=== PATIENT | female | born 1995 | race Caucasian/White ===

== ENCOUNTER 2016-07-27 09:15 | Emergency (ER) | payer OTHER | END 2016-07-27 10:09 | disposition left against medical advice (07) | LOC: UCEAST 09:15 | DX: Z53.21 Procedure and treatment not carried out due to patient leaving prior to being seen by health care provider (principal); K08.89 Other specified disorders of teeth and supporting structures ==

== ENCOUNTER 2016-07-27 11:30 | Emergency (ER) | payer OTHER ==
[2016-07-27] MEDS ORDERED: Ketorolac INJ* 60 MG/2 ML VIAL IM ONE (12:14)
[2016-07-27] MEDS ORDERED: Ondansetron INJ* 2 MG/ML VIAL IV ONE (12:20)
[2016-07-27] MEDS ORDERED: Morphine INJ* 4 MG/ML 1 ML CARPUJECT IV ONE ×2 (12:20→13:39)
[2016-07-27 14:01] VITALS: BP 100/86
--- NOTE | 2016-07-28 21:22 | ED ---
Throat Pain/Nasal Congestion - HPI Summary HPI Summary: Pt here w/ dental pain. [place] tooth coming in on Lt upper jaw and decaying tooth on Lt lower jaw. She's tried high dose ibuprofen around the clock the 24 hours w/o relief. Has severe pain and pressure in her mouth where wisdom tooth is trying to come in and decaying tooth has been a slow progressive pain that is worsening. Denies fever, chills, N/V/D, neck pain. Has difficulty eating with pain. Just got insurance so called a dentist yesterday and they can't get her in until Sunday. - History of Current Complaint Chief Complaint: EDDentalPain Hx Obtained From: Patient - Allergies/Home Medications Allergies/Adverse Reactions: Allergies Allergy/AdvReac Type Severity Reaction Status Date / Time Hydrocodone [From Vicodin] Allergy Severe Vomiting Verified 07/27/16 11:36 Ketorolac Tromethamine Allergy has Verified 07/27/16 12:19 [From Toradol] seizures Shellfish Allergy Allergy Unknown Verified 07/27/16 11:36 Reaction Details PMH/Surg Hx/FS Hx/Imm Hx Previously Healthy: Yes Endocrine/Hematology History: Denies: Hx Diabetes, Hx Thyroid Disease, Hx Anemia, Hx Unexplained Bleeding Cardiovascular History: Denies: Hx Cardiac Arrest, Hx Embolism, Hx Hypertension, Hx Pacemaker/ICD Respiratory History: Denies: Hx Asthma, Hx Chronic Obstructive Pulmonary Disease (COPD), Hx Pneumonia GI History: Denies: Hx Ulcer Sensory History: Denies: Hx Contacts or Glasses, Hx Hearing Aid, Hx Hearing Problem Opthamlomology History: Denies: Hx Contacts or Glasses Neurological History: Reports: Hx Seizures - Pt has had history of sezures when Hypoglycemic Psychiatric History: Reports: Hx Anxiety, Hx Depression, Hx Panic Disorder, Hx Inpatient Treatment, Hx Schizophrenia, Other Psychiatric Issues/Disorders - PANIC DISORDER Denies: Hx Eating Disorder, Hx of Violent Episodes Against Others - Immunization History Date of Tetanus Vaccine: less jodee a year ago Infectious Disease History: No Infectious Disease History: Denies: Hx Clostridium Difficile, Hx Hepatitis, Hx Human Immunodeficiency Virus (HIV), Hx of Known/Suspected MRSA, Hx Shingles, Hx Tuberculosis, Hx Known/ Suspected VRE, Hx Known/Suspected VRSA, History Other Infectious Disease, Traveled Outside the [place] in Last 30 Days - Family History Known Family History: Positive: Other - see note Negative: Cardiac Disease Family History: Biological father - Schizophrenia - Social History Alcohol Use: None Hx Substance Use: Yes Substance Use Type: Reports: Sedatives Substance Use Comment - Amount & Last Used: cymbalta 30mg , adderal 20mg qd. Hx Tobacco Use: No Smoking Status (MU): Former Smoker Type: Cigarettes Length of Time of Smoking/Using Tobacco: 3 years Have You Smoked in the Last Year: No Review of Systems Negative: Fever, Chills Negative: Drainage, Erythema Positive: Dental Pain - see HPI. Negative: Sore Throat, Ear Ache, Nasal Discharge Negative: Chest Pain Negative: Shortness Of Breath Negative: Abdominal Pain, Vomiting, Diarrhea, Nausea Positive: no symptoms reported Negative: Rash, Bruising Neurological: Negative Positive: Anxious All Other Systems Reviewed And Are Negative: Yes Physical Exam Triage Information Reviewed: Yes Vital Signs On Initial Exam: Initial Vitals Temp Pulse Resp BP Pulse Ox 99.2 F 100 19 138/94 100 07/27/16 11:31 07/27/16 11:31 07/27/16 11:31 07/27/16 11:31 07/27/16 11:31 Vital Signs Reviewed: Yes Appearance: Positive: Well-Appearing, Well-Nourished, Pain Distress Skin: Positive: Warm, Dry - no overlying erythema along affected side of face - no edema Head/Face: Positive: Normal Head/Face Inspection Eyes: Positive: Normal, EOMI, Conjunctiva Clear. Negative: Discharge ENT: Positive: Hearing grossly normal, Pharynx normal, TMs normal. Negative: Nasal congestion, Nasal drainage Dental: Positive: Gross Decay/Caries @ - #18 mostly decayed; #16 partially protruding from gingiva -surrounding gingiva w/ mild erythema - no pustules, nodrainage, no edema Neck: Positive: Supple, Nontender Respiratory/Lung Sounds: Positive: Breath Sounds Present. Negative: Stridor Cardiovascular: Positive: Normal, RRR. Negative: Murmur, Rub Musculoskeletal: Positive: Normal, Strength/ROM Intact Neurological: Positive: Normal, Sensory/Motor Intact, Alert, Oriented to Person Place, Time, CN Intact II-III Psychiatric: Positive: Anxious - crying hysterically Diagnostics - Vital Signs Vital Signs Temp Pulse Resp BP Pulse Ox 07/27/16 14:00 89 16 100/86 07/27/16 13:55 89 16 105/54 98 07/27/16 13:54 98.6 F 89 16 105/54 07/27/16 13:46 16 07/27/16 13:45 88 16 96/66 98 07/27/16 13:30 78 16 101/73 07/27/16 12:37 16 07/27/16 11:31 99.2 F 100 19 138/94 100 - Laboratory Lab Statement: Any lab studies that have been ordered have been reviewed, and results considered in the medical decision making process. Re-Evaluation - Re-Evaluation First Eval Change: Unchanged - minimal relief w/ 4mg morphine IV - will provide 8mg morphine EENT Course/Dx - Course Course Of Treatment: Pt's pain appears to be triggering her anxiety - she failed multiple doses of ibuprofen - could not administer toradol as she has h/ o seizure w/ this medication. IV morphine ordered to a) provide fast pain relief and b) w/ h/o hydrocodone allergy, allow quick access for medication should she have an allergic reaction. She did not have an allergic reaction to morphine so when 4mg did not seem to achieve pain control, 8mg was administered. She was also provided with antibiotics to control potential infection. Advised to continue NSAID's which will most likely provide better relief after breaking pain cycle w/ IV morphine and reduce inflammation. Although pt reports pain went from 05/01 - 01/29, could not offer anymore narcotic pain medications as her vital signs could not handle it. Suspect a large component of anxiety, espcially given her h/o panic d/o and paranoid schizophrenia. She was also provided with a muscle relaxer to reduce facial spasm w/ tension from prolonged pain as well as have a mild anti-anxiety affect. Advised to f/u w/ dentist ERROL. - Diagnoses Provider Diagnoses: TOOTHACHE Discharge - Discharge Plan Condition: Stable Disposition: HOME Prescriptions: Amoxicillin CAP* 500 mg PO TID #30 cap Cyclobenzaprine TAB* [Flexeril TAB*] 10 mg PO TID PRN #15 tab PRN Reason: Pain Patient Education Materials: Toothache (ED) Referrals: Jg Dey MD [Primary Care Provider] - Additional Instructions: You have pain from your wisdom tooth coming through your gums. Please follow-up with your dentist for treatment plan. In the meantime you may try warm saline mouth rinses, ice pack alternating with heat pack, ibuprofen with food. You were also started on an antibiotic in the event you have infection trapped in your dental cavity in the lower jaw. You may take ibuprofen 600mg alternating with acetaminophen 650mg for pain. You were additionally prescribed a muscle relaxer to help with muscle spasms in the area for pain. Call your dentist today to schedule an appointment.
== END 2016-07-27 13:54 | disposition home or self-care (01) ==
LOC: ED 11:30
DX: K08.89 Other specified disorders of teeth and supporting structures (principal); Z87.891 Personal history of nicotine dependence; F41.9 Anxiety disorder, unspecified
CPT/HCPCS: 96374; 96375; 96376; 99283; J2270; J2405

== ENCOUNTER 2016-08-21 11:15 | Emergency (ER) | payer OTHER ==
[2016-08-21 12:12] VITALS: BP 94/54
--- NOTE | 2016-08-21 13:28 | UC ---
Dental HPI - HPI Summary HPI Summary: 21 F presents with left upper jaw pain from tooth abscess. She has had an issue with the left upper wisdom for many weeks. She just finished course of amoxicillin yesterday. She has been waiting for insurance to be approved by her dentist, She has been using alot of motrin for the pain. She denies any SOB , swelling around the eyes, and pain with eye movement. - History of Current Complaint Chief Complaint: UCDentalProblem Stated Complaint: DENTAL PAIN Time Seen by Provider: 08/21/16 13:19 Hx Last Menstrual Period: nexplanon - Allergies/Home Medications Allergies/Adverse Reactions: Allergies Allergy/AdvReac Type Severity Reaction Status Date / Time Hydrocodone [From Vicodin] Allergy Severe Vomiting Verified 08/21/16 12:12 Ketorolac Tromethamine Allergy has Verified 08/21/16 12:12 [From Toradol] seizures Shellfish Allergy Allergy Unknown Verified 08/21/16 12:12 Reaction Details PMH/Surg Hx/FS Hx/Imm Hx Endocrine History Of: Denies: Diabetes, Thyroid Disease Cardiovascular History Of: Denies: Cardiac Disorders, Hypertension, Pacemaker/ICD Respiratory History Of: Denies: COPD, Asthma, Pneumonia GI/ History Of: Denies: Ulcer Neurological History Of: Reports: Seizures - Pt has had history of sezures when Hypoglycemic Psychological History Of: Reports: Anxiety, Depression, Schizophrenia - Surgical History Surgical History: None - Family History Known Family History: Positive: Other - see note Negative: Cardiac Disease Family History: Biological father - Schizophrenia - Social History Alcohol Use: None Substance Use Type: None, Sedatives Substance Use Comment - Amount & Last Used: cymbalta 30mg , adderal 20mg qd. Smoking Status (MU): Former Smoker Type: Cigarettes Length of Time of Smoking/Using Tobacco: 3 years Have You Smoked in the Last Year: No Household Exposure Type: Cigarettes - Immunization History Most Recent Influenza Vaccination: March, Most Recent Tetanus Shot: UTD Most Recent Pneumonia Vaccination: n/a Review of Systems Constitutional: Negative Eyes: Negative ENT: Dental Pain Respiratory: Negative Cardiovascular: Negative All Other Systems Reviewed And Are Negative: Yes Physical Exam Triage Information Reviewed: Yes Appearance: Pain Distress Vital Signs: Initial Vital Signs Temp 100.6 F 08/21/16 12:07 Pulse 105 08/21/16 12:07 Resp 22 08/21/16 12:07 BP 94/54 08/21/16 12:07 Pulse Ox 100 08/21/16 12:07 Vital Signs Reviewed: Yes Eyes: Positive: Conjunctiva Clear, Other: - no pain with EOM or periorbital edema ENT: Positive: Normal ENT inspection, Pharynx normal, TMs normal Dental: Positive: Abscess @ - 16. Negative: Bleeding Neck: Positive: Supple, Nontender, No Lymphadenopathy Respiratory: Positive: Lungs clear, Normal breath sounds Cardiovascular: Positive: RRR Dental Complaint Course/Dx - Course Course Of Treatment: 21 F presents dental pain that has increased in pain in the past day. she finished her course of antibiotics yesterday. her dentist thinks they will be able to get her in within 2 weeks. abscess is present on 16th tooth. she is visible in a lot of pain and has been taking alot of motrin. discussed with try tramadol as has tolerated morphine in the past advised to stop immediately if develop facial swelling that occurred with hydrocodone. no evdience of preseptal cellulitis so do not believe infection as spread, will switch antiobitic to clindamycin warned if develop diarrhea to go to ER, patient agrees with plan - Differential Dx/Diagnosis Differential Diagnosis/Dx: Dental Abscess, Dental Caries, Other - periorbital cellulitis Provider Diagnoses: dental abscess Discharge - Discharge Plan Condition: Good Disposition: HOME Prescriptions: Clindamycin CAP* [Cleocin 150 MG CAP*] 450 mg PO QID #60 cap traMADol TAB* [Ultram*] 50 mg PO Q6HR PRN #16 tab MDD 4 PRN Reason: Pain Patient Education Materials: Dental Abscess (ED) Referrals: Jg Dey MD [Primary Care Provider] - Additional Instructions: 3 tablets three times a day for 7 days, first dose given in urgent care Use ibuprofen every 6 hours and use tramadol for break through pain, go to ER if develop face swelling with medication Avoid hard, crunchy food until seen by dentist Return to ED if develop fever, shortness of breath, pain with eye movement or swelling around eye Follow up with dentist as soon as possible Follow up with primary within 7 days
[2016-08-21] MEDS ORDERED: Clindamycin CAP* 150 MG PO ONE (13:39)
== END 2016-08-21 13:55 | disposition home or self-care (01) ==
LOC: UCEAST 11:15
DX: K04.7 Periapical abscess without sinus (principal); Z88.5 Allergy status to narcotic agent; Z87.891 Personal history of nicotine dependence
CPT/HCPCS: 99212; A9270-GY; G0463

== ENCOUNTER 2016-08-21 22:42 | Observation (INO) | payer OTHER ==
[2016-08-21] MEDS ORDERED: NS 0.9% 1000 ML* 1,000 ML IV ONE (23:20)
[2016-08-21 23:35] LABS: Hematocrit 36 % (35-47); Hemoglobin 11.6 g/dl (12.0-16.0); Mean Corpuscular HGB Conc 33 g/dl (31-36); Mean Corpuscular Hemoglobin 28 pg (27-31); Mean Corpuscular Volume 87 fL (80-97); Mean Platelet Volume 8 um3 (7.4-10.4); Red Blood Count 4.12 10^6/ul (4.0-5.4); Red Cell Distribution Width 16 % (10.5-15); White Blood Count 7.6 10^3/ul (3.5-10.8)
[2016-08-21] MEDS ORDERED: LORazepam INJ* 2 MG/ML 1 ML VIAL IV PUSH ONE (23:48)
--- NOTE | 2016-08-21 23:48 | ED ---
Felisa Ronquillo Rebecca, scribed for Eder Messina MD on 08/21/16 at 2322 . Neurological HPI - HPI Summary HPI Summary: Pt is a 21 y/o F who presents to ED s/p 4 seizures. Pt reports 4 seizures today , with the first one at 1200 and the last one at 2145. Unsure of how long seizures lasted. Sx aggravated by nothing, alleviated by spontaneous resolution. Additionally currently experiencing a seizure. She was evaluated by [facility] today for wisdom tooth pain, who prescribed Tramadol. Approximately 30 minutes after taking the first dose, her first seizure began. Currently, dental pain is sharp and ranked 8/10. Last seizure prior to today was 3 months ago. She is not on medications for seizures, had an EEG a few weeks ago to determine appropriate medications. - History of Current Complaint Chief Complaint: EDSeizure Stated Complaint: SEIZURES/DENTAL PAIN Time Seen by Provider: 08/21/16 23:17 Hx Obtained From: Patient Hx Last Menstrual Period: nexplanon Onset/Duration: Sudden Onset Number of Seizures: 4 Pain Intensity: 8 - Dental pain Pain Scale Used: 0-10 Numeric Character: Sharp Aggravating: Nothing Alleviating: Spontanious Resolution Associated Signs and Symptoms: Positive: Pain - Dental pain - Additional Pertinent History Primary Care Physician: [id number] - Allergy/Home Medications Allergies/Adverse Reactions: Allergies Allergy/AdvReac Type Severity Reaction Status Date / Time Shellfish Allergy Allergy Unknown Verified 08/21/16 12:12 Reaction Details Ketorolac Tromethamine AdvReac Intermediate has Verified 08/22/16 00:07 [From Toradol] seizures Tramadol AdvReac Intermediate See Comment Verified 08/22/16 00:07 Hydrocodone [From Vicodin] AdvReac Mild Vomiting Verified 08/22/16 00:07 Home Medications: Home Medications Diazepam TAB(*) [Valium TAB(*)] 5 mg PO TID 08/22/16 [History Confirmed 08/22/16 ] PMH/Surg Hx/FS Hx/Imm Hx Endocrine/Hematology History: Denies: Hx Diabetes, Hx Thyroid Disease, Hx Anemia, Hx Unexplained Bleeding Cardiovascular History: Denies: Hx Cardiac Arrest, Hx Embolism, Hx Hypertension, Hx Pacemaker/ICD Respiratory History: Denies: Hx Asthma, Hx Chronic Obstructive Pulmonary Disease (COPD), Hx Pneumonia GI History: Denies: Hx Ulcer Sensory History: Denies: Hx Contacts or Glasses, Hx Hearing Aid, Hx Hearing Problem Opthamlomology History: Denies: Hx Contacts or Glasses Neurological History: Reports: Hx Seizures - Pt has had history of sezures when Hypoglycemic Psychiatric History: Reports: Hx Anxiety, Hx Depression, Hx Panic Disorder, Hx Inpatient Treatment, Hx Schizophrenia, Other Psychiatric Issues/Disorders - PANIC DISORDER Denies: Hx Eating Disorder, Hx of Violent Episodes Against Others - Immunization History Date of Tetanus Vaccine: less than a year ago Infectious Disease History: No Infectious Disease History: Denies: Hx Clostridium Difficile, Hx Hepatitis, Hx Human Immunodeficiency Virus (HIV), Hx of Known/Suspected MRSA, Hx Shingles, Hx Tuberculosis, Hx Known/ Suspected VRE, Hx Known/Suspected VRSA, History Other Infectious Disease, Traveled Outside the [place] in Last 30 Days - Family History Known Family History: Positive: Other - Schizophrenia (father) Negative: Cardiac Disease - Social History Alcohol Use: None Hx Substance Use: Yes Substance Use Type: Reports: Sedatives Substance Use Comment - Amount & Last Used: cymbalta 30mg , adderal 20mg qd. Hx Tobacco Use: Yes Smoking Status (MU): Former Smoker Type: Cigarettes Length of Time of Smoking/Using Tobacco: 3 years Have You Smoked in the Last Year: No Review of Systems Positive: Dental Pain - wisdom tooth Neurological: Other - 4 seizures [employer], currently experiencing aura All Other Systems Reviewed And Are Negative: Yes Physical Exam Triage Information Reviewed: Yes Vital Signs On Initial Exam: Initial Vitals Temp Pulse Resp BP Pulse Ox 98.9 F 102 20 120/72 98 08/21/16 22:45 08/21/16 22:45 08/21/16 22:45 08/21/16 22:45 08/21/16 22:45 Vital Signs Reviewed: Yes Appearance: Positive: No Pain Distress, Thin Skin: Positive: Warm Eyes: Positive: EOMI, PADMINI ENT: Positive: Hearing grossly normal Neck: Positive: Supple Respiratory/Lung Sounds: Positive: Breath Sounds Present Cardiovascular: Positive: RRR Abdomen Description: Positive: Nontender, Soft Bowel Sounds: Positive: Present Neurological: Positive: Sensory/Motor Intact, Alert, Oriented to Person Place, Time, CN Intact II-III, Normal Gait Psychiatric: Positive: Anxious Diagnostics - Vital Signs Vital Signs Temp Pulse Resp BP Pulse Ox 08/21/16 23:07 99.5 F 93 18 109/70 99 08/21/16 22:45 98.9 F 102 20 120/72 98 - Laboratory Lab Results: Lab Results 08/21/16 08/21/16 Range/Units 23:25 23:25 WBC 7.6 (3.5-10.8) 10^3/ul RBC 4.12 (4.0-5.4) 10^6/ul Hgb 11.6 L (12.0-16.0) g/dl Hct 36 (35-47) % MCV 87 (80-97) fL MCH 28 (27-31) pg MCHC 33 (31-36) g/dl RDW 16 H (10.5-15) % Plt Count 218 (150-450) 10^3/ul MPV 8 (7.4-10.4) um3 Neut % (Auto) 50.0 (38-83) % Lymph % (Auto) 29.0 (25-47) % [place] % (Auto) 7.0 (1-9) % Eos % (Auto) 12.9 H (0-6) % Baso % (Auto) 1.1 (0-2) % Absolute Neuts (auto) 3.8 (1.5-7.7) 10^3/ul Absolute Lymphs (auto) 2.2 (1.0-4.8) 10^3/ul Absolute Monos (auto) 0.5 (0-0.8) 10^3/ul Absolute Eos (auto) 1.0 H (0-0.6) 10^3/ul Absolute Basos (auto) 0.1 (0-0.2) 10^3/ul Absolute Nucleated RBC 0 10^3/ul Nucleated RBC % 0 INR (Anticoag Therapy) 0.81 L (0.89-1.11) Result Diagrams: 08/21/16 23:25 08/21/16 23:25 Lab Statement: Any lab studies that have been ordered have been reviewed, and results considered in the medical decision making process. Re-Evaluation - Re-Evaluation First Eval Comment: pt with 50 sec witnessed grand ,mal seizure in ed, will admit Course/Dx - Course Assessment/Plan: Pt is a 21 y/o F who presents to ED s/p 4 seizures who presents to ED c/o aura and dental pain. PMHx seizures. Discussed care of pt with Dr. Heard who agrees to admit pt. Pt will be admitted. - Diagnoses Provider Diagnoses: Seizures - Physician Notifications Discussed Care of Patient With: Dr. Heard, who agrees to admit pt. Time Discussed With Above Provider: 23:50 - Critical Care Time Critical Care Time: 30-74 min Discharge - Discharge Plan Condition: Fair Disposition: ADMITTED TO [facility] documentation as recorded by the Felisa long Rebecca accurately reflects the service I personally performed and the decisions made by , Eder Messina MD.
[2016-08-21 23:58] LABS: Albumin 3.5 g/dL (3.2-5.2); BUN/Creatinine Ratio 11.6 (8-20); Calcium 8.7 mg/dL (8.6-10.3); EGFR African American 138.1 (>60); EGFR Non-African American 107.4 (>60); Globulin 2.6 g/dL (2-4); Magnesium 1.8 mg/dL (1.9-2.7); Potassium 3.4 mmol/L (3.5-5.0); Total Bilirubin 0.3 mg/dL (0.2-1.0); Total Protein 6.1 g/dL (6.4-8.9)
--- NOTE | 2016-08-22 00:11 | HP ---
H&P (Free Text) History and Physical: PCP: Angeles Dey MD Urgentcare Provider: VIRAL Weeks Date/Time of Evaluation: 08/22/2016 0000 CC: seizures HPI: Ms Leavitt is a 21YO female HX seizures started this AM at urgent care on tramadol, last taken tonight around 1900. She presents reporting 4 seizures today since starting tramadol. She is not currently on any anti-seizure medications as her tegretol was stopped for "rapid weight loss". While in the ED she had a 5th grand mal seizure witnessed by nursing and ED physician. She will be brought in for monitoring while the tramadol which is well documented to lower seizure thresholds is metabolized. PMedHx seizures asthma depression anxiety Allergies Hydrocodone [From Vicodin] Allergy (Severe, Verified 08/21/16 12:12) Vomiting Do not feed seafood mejia chowder to this patient Ketorolac Tromethamine [From Toradol] Allergy (Verified 08/21/16 12:12) has seizures Shellfish Allergy Allergy (Verified 08/21/16 12:12) Unknown Reaction Details SocHx: no tobacco, alcohol, or recreational drugs; single, no children; full code status FamHx: reviewed, non-contributory ROS: as above, otherwise reviewed and all were negative Constitutional: NAD, normally developed, well-nourished white female vitals: Vital Signs Temp 37.5 C 08/21/16 23:07 Pulse 93 08/21/16 23:07 Resp 18 08/21/16 23:07 BP 109/70 08/21/16 23:07 Pulse Ox 99 08/21/16 23:07 Intake & Output 08/21/16 08/21/16 08/22/16 11:59 23:59 11:59 Weight 140 lb HEENM: atraumatic; sclera/conjunctiva: non-icteric/clear; hearing: intact; oropharynx: clear, mucosa moist, no obvious active dental infections Neck: soft tissue: no nuchal rigidity; thyroid: normal Pulmonary: clear to auscultation bilaterally, good aeration, no accessory muscle use CV: RR/RR, normal S1S2, no carotid bruit, no jugular venous distention, 2+ B DP/ PT, no edema Abdominal: soft, non-distended, non-tender, no rebound/guarding/rigidity, normoactive bowel sounds, no hepatosplenomegaly or masses, no costovertebral angle tenderness Musculoskeletal: general: grossly intact; gait: stable Integumental: normal appearance and texture Psychiatric orientation: AA&O to PPS affect: anxious mood: cooperative eye contact: good content: reliable responses: timely insight: fair Testing: Lab Results 08/21/16 08/21/16 08/21/16 Range/Units 23:25 23:25 23:25 WBC 7.6 (3.5-10.8) 10^3/ul RBC 4.12 (4.0-5.4) 10^6/ul Hgb 11.6 L (12.0-16.0) g/dl Hct 36 (35-47) % MCV 87 (80-97) fL MCH 28 (27-31) pg MCHC 33 (31-36) g/dl RDW 16 H (10.5-15) % Plt Count 218 (150-450) 10^3/ul MPV 8 (7.4-10.4) um3 Neut % (Auto) 50.0 (38-83) % Lymph % (Auto) 29.0 (25-47) % [place] % (Auto) 7.0 (1-9) % Eos % (Auto) 12.9 H (0-6) % Baso % (Auto) 1.1 (0-2) % Absolute Neuts (auto) 3.8 (1.5-7.7) 10^3/ul Absolute Lymphs (auto) 2.2 (1.0-4.8) 10^3/ul Absolute Monos (auto) 0.5 (0-0.8) 10^3/ul Absolute Eos (auto) 1.0 H (0-0.6) 10^3/ul Absolute Basos (auto) 0.1 (0-0.2) 10^3/ul Absolute Nucleated RBC 0 10^3/ul Nucleated RBC % 0 INR (Anticoag Therapy) 0.81 L (0.89-1.11) Sodium 136 (133-145) mmol/L Potassium 3.4 L (3.5-5.0) mmol/L Chloride 105 (101-111) mmol/L Carbon Dioxide 28 (22-32) mmol/L Anion Gap 3 (2-11) mmol/L BUN 8 (6-24) mg/dL Creatinine 0.69 (0.51-0.95) mg/dL Est GFR ( Amer) 138.1 (>60) Est GFR (Non-Af Amer) 107.4 (>60) BUN/Creatinine Ratio 11.6 (8-20) Glucose 79 (70-100) mg/dL Lactic Acid (0.5-2.0) mmol/L Calcium 8.7 (8.6-10.3) mg/dL Magnesium 1.8 L (1.9-2.7) mg/dL Total Bilirubin 0.30 (0.2-1.0) mg/dL AST 14 (13-39) U/L ALT 9 (7-52) U/L Alkaline Phosphatase 33 L (34-104) U/L Total Protein 6.1 L (6.4-8.9) g/dL Albumin 3.5 (3.2-5.2) g/dL Globulin 2.6 (2-4) g/dL Albumin/Globulin Ratio 1.3 (1-3) Prolactin Pending 08/21/16 Range/Units 23:25 WBC (3.5-10.8) 10^3/ul RBC (4.0-5.4) 10^6/ul Hgb (12.0-16.0) g/dl Hct (35-47) % MCV (80-97) fL MCH (27-31) pg MCHC (31-36) g/dl RDW (10.5-15) % Plt Count (150-450) 10^3/ul MPV (7.4-10.4) um3 Neut % (Auto) (38-83) % Lymph % (Auto) (25-47) % [place] % (Auto) (1-9) % Eos % (Auto) (0-6) % Baso % (Auto) (0-2) % Absolute Neuts (auto) (1.5-7.7) 10^3/ul Absolute Lymphs (auto) (1.0-4.8) 10^3/ul Absolute Monos (auto) (0-0.8) 10^3/ul Absolute Eos (auto) (0-0.6) 10^3/ul Absolute Basos (auto) (0-0.2) 10^3/ul Absolute Nucleated RBC 10^3/ul Nucleated RBC % INR (Anticoag Therapy) (0.89-1.11) Sodium (133-145) mmol/L Potassium (3.5-5.0) mmol/L Chloride (101-111) mmol/L Carbon Dioxide (22-32) mmol/L Anion Gap (2-11) mmol/L BUN (6-24) mg/dL Creatinine (0.51-0.95) mg/dL Est GFR ( Amer) (>60) Est GFR (Non-Af Amer) (>60) BUN/Creatinine Ratio (8-20) Glucose (70-100) mg/dL Lactic Acid 0.9 (0.5-2.0) mmol/L Calcium (8.6-10.3) mg/dL Magnesium (1.9-2.7) mg/dL Total Bilirubin (0.2-1.0) mg/dL AST (13-39) U/L ALT (7-52) U/L Alkaline Phosphatase (34-104) U/L Total Protein (6.4-8.9) g/dL Albumin (3.2-5.2) g/dL Globulin (2-4) g/dL Albumin/Globulin Ratio (1-3) Prolactin Impression: 21F presenting in status epilepticus 2nd tramadol prescribed for dental pain DIAGNOSIS & PLAN Primary status epilepticus 2nd tramadol : telemetry : seizure precautions : D/C tramadol, entered in EMR as adverse reaction : supplemental oxygen : supportive care Admission Rational: observation for status epilepticus DVTp: SCDs Code Status: full
[2016-08-22] MEDS ORDERED: Ondansetron INJ* 2 MG/ML VIAL IV PRN (00:13)
[2016-08-22] MEDS ORDERED: Melatonin (NF) 3 MG TAB PO PRN (00:13)
[2016-08-22] MEDS ORDERED: NS 0.9% 1000 ML* 1,000 ML IV SCH (00:15)
[2016-08-22 00:40] LABS: Prolactin 16.9 ng/mL (1.0-25.0)
[2016-08-22] MEDS ORDERED: HYDROmorphone INJ* 1 MG/ML CARPUJECT SYRINGE ONE (00:55)
[2016-08-22] MEDS: HYDROmorphone INJ* 1 MG/ML CARPUJECT SYRINGE IV PRN ×4 (01:03→05:09)
[2016-08-22] MEDS: Diazepam TAB(*) 5 MG PO SCH ×2 (04:18→07:28)
[2016-08-22 05:02] VITALS: BP 108/86
[2016-08-22 06:21] LABS: BUN/Creatinine Ratio 10.5 (8-20); Calcium 8.3 mg/dL (8.6-10.3); EGFR African American 172.2 (>60); EGFR Non-African American 133.9 (>60); Magnesium 1.8 mg/dL (1.9-2.7); Potassium 3.7 mmol/L (3.5-5.0)
[2016-08-22] MEDS ORDERED: LORazepam INJ* 2 MG/ML 1 ML VIAL ONE (06:55)
[2016-08-22] MEDS ORDERED: LORazepam INJ* 2 MG/ML 1 ML VIAL IV PUSH ONE (07:06)
[2016-08-22] MEDS ORDERED: HYDROmorphone INJ* 1 MG/ML CARPUJECT SYRINGE IV PRN (07:07)
[2016-08-22] MEDS ORDERED: DULoxetine DR CAP* 30 MG CAP.DR PO SCH (09:00)
[2016-08-22] MEDS ORDERED: Pantoprazole IV* 40 MG IV SCH (09:00)
--- NOTE | 2017-06-28 17:22 | DS ---
DISCHARGE SUMMARY: DATE OF ADMISSION: 08/22/16 DATE OF DISCHARGE: 08/22/16 PRINCIPAL DIAGNOSIS: Seizure. HOSPITAL COURSE: Ms. Leavitt is a 22-year-old female who has a history of seizures, asthma, depression, and anxiety who presented to the emergency room on the night prior to admission with report of 4 seizures the day prior. She reportedly was not on any seizure medication as her Tegretol was stopped previously. She had a seizure in the emergency room. She was brought in for monitoring. At approximately 7 a.m., nursing staff was alerted that the patient was having a seizure. CAT team was called. The patient was given Dilaudid for tooth pain. At approximately 7:30, the patient's nurse was again alerted to the possibility of the patient having seizure. It was recommended that she take her Valium early. This was given. At approximately 8:45 a.m., the patient was requesting to leave AMA. The patient signed out against medical advice. The patient walked off the unit with her significant other by her side. This was an AMA discharge. [id number]/[facility] #: [id number] [facility] HOSPITALPaulo
== END 2016-08-22 08:48 | disposition left against medical advice (07) ==
LOC: ED 22:42 → MEDTELE 08-22 00:12
PROVIDERS: ADMIT Hospitalist; ATTEND Hospitalist
DX: G40.901 Epilepsy, unspecified, not intractable, with status epilepticus (principal); F41.9 Anxiety disorder, unspecified; F32.9 Major depressive disorder, single episode, unspecified; Z79.899 Other long term (current) drug therapy; Z88.5 Allergy status to narcotic agent; Z88.8 Allergy status to other drugs, medicaments and biological substances
CPT/HCPCS: 36415; 80048; 80053; 83605; 83735; 84146; 85025; 85610; 96361; 96374; 96375; 96376; 99291; A9270-GY; G0378; J1170; J2060

== ENCOUNTER 2016-08-24 00:31 | Emergency (ER) | payer OTHER ==
[2016-08-24] MEDS ORDERED: LORazepam INJ* 2 MG/ML 1 ML VIAL ONE (00:45)
[2016-08-24] MEDS ORDERED: Diazepam TAB(*) 5 MG PO ONE (00:55)
[2016-08-24] MEDS ORDERED: Divalproex DR TAB(*) 250 MG PO ONE (00:55)
[2016-08-24] MEDS ORDERED: DULoxetine DR CAP* 30 MG CAP.DR PO ONE (00:56)
[2016-08-24] MEDS ORDERED: Acetaminophen TAB* 325 MG PO ONE (00:59)
[2016-08-24 01:22] LABS: Hematocrit 42 % (35-47); Hemoglobin 13.6 g/dl (12.0-16.0); Mean Corpuscular HGB Conc 32 g/dl (31-36); Mean Corpuscular Hemoglobin 28 pg (27-31); Mean Corpuscular Volume 87 fL (80-97); Mean Platelet Volume 8 um3 (7.4-10.4); Red Blood Count 4.85 10^6/ul (4.0-5.4); Red Cell Distribution Width 16 % (10.5-15)
[2016-08-24 01:33] LABS: ALT 12 U/L (7-52); AST 16 U/L (13-39); Albumin 4.2 g/dL (3.2-5.2); Alkaline Phosphatase 39 U/L (34-104); Anion Gap 11 mmol/L (2-11); BUN/Creatinine Ratio 16.3 (8-20); Blood Urea Nitrogen 14 mg/dL (6-24); CO2 Carbon Dioxide 20 mmol/L (22-32); Calcium 9.7 mg/dL (8.6-10.3); Chloride 103 mmol/L (101-111); EGFR African American 107.1 (>60); EGFR Non-African American 83.3 (>60); Globulin 3.1 g/dL (2-4); Glucose 73 mg/dL (70-100); Potassium 4.1 mmol/L (3.5-5.0); Sodium 134 mmol/L (133-145); Total Protein 7.3 g/dL (6.4-8.9)
[2016-08-24 01:45] LABS: Alcohol < 10 mg/dL (<10)
[2016-08-24] MEDS ORDERED: HYDROcodone/ACETAMIN 5-325 MG* 1 TAB PO ONE (02:58)
[2016-08-24] MEDS ORDERED: oxyCODONE TAB* 5 MG TAB PO ONE (02:59)
[2016-08-24 03:24] VITALS: BP 103/81
--- NOTE | 2016-09-23 20:02 | ED ---
Willian Ronquillo Janilya, scribed for Yao Yuan MD on 08/24/16 at 0130 . Neurological HPI - HPI Summary HPI Summary: A 21 y/o female came in to [facility] c/o epilepsy starting today. Upon arrival, pt had an episode of seizures lasting a few seconds at 0045. En route to the hospital, pt reports she had an episode of seizures in the car lasting for a few seconds at about 0025. Immediately, after the seizure, pt reports severe headache. Earlier today, she left school early because her dental abscess on left side bothered her, and she was afraid the pain might induce seizures. She has been taking Amoxicillin for the abscess. Pt reports she takes Depakote for seizures. However, she hasn't had the medication for 6 months due to insurance problems. Pt reports stress at home. Sleep has been abnormal, food/fluid intake has been normal. In addition, pt reports fever of 102 F yesterday, cough for the past 2 weeks, for which she has been taking Mucinex. In addition, pt takes Adderall 20 mg, Cymbalta 30 mg, Valium 5 mg. She states she missed today's dosages that she usually takes right before sleep at midnight. Pt has seizures once every few months. Her seizures first started when she was 12 years old. Pt reports that 2 days ago, she was admitted to the hospital for similar Sx. Pt was seen by a neurologist a few weeks ago and had her EEG done. Pt is on her menstrual period now. She states she has not cut herself in 3-4 months. - History of Current Complaint Chief Complaint: EDSeizure Stated Complaint: SEIZURES Time Seen by Provider: 08/24/16 00:35 Hx Obtained From: Patient Hx Last Menstrual Period: nexplanon Onset/Duration: Sudden Onset, Started hours ago, Still Present Timing: Intermittent Episodes Lasting: - a few seconds Onset Severity: Moderate Current Severity: Moderate Seizure Severity: Moderate Headache Location: Diffuse (Right), Diffuse (Left) Pain Intensity: 9 Pain Scale Used: 0-10 Numeric Character: Dizzy Aggravating: Stress Alleviating: Nothing Associated Signs and Symptoms: Positive: Dizziness Related Hx: Suicide - Additional Pertinent History Primary Care Physician: [id number] - Allergy/Home Medications Allergies/Adverse Reactions: Allergies Allergy/AdvReac Type Severity Reaction Status Date / Time Shellfish Allergy Allergy Unknown Verified 08/21/16 12:12 Reaction Details Ketorolac Tromethamine AdvReac Intermediate has Verified 08/22/16 00:07 [From Toradol] seizures Tramadol AdvReac Intermediate See Comment Verified 08/22/16 00:07 Hydrocodone [From Vicodin] AdvReac Mild Vomiting Verified 08/22/16 00:07 PMH/Surg Hx/FS Hx/Imm Hx Previously Healthy: Yes Endocrine/Hematology History: Denies: Hx Diabetes, Hx Thyroid Disease, Hx Anemia, Hx Unexplained Bleeding Cardiovascular History: Denies: Hx Cardiac Arrest, Hx Embolism, Hx Hypertension, Hx Pacemaker/ICD Respiratory History: Denies: Hx Asthma, Hx Chronic Obstructive Pulmonary Disease (COPD), Hx Pneumonia GI History: Denies: Hx Ulcer Sensory History: Denies: Hx Contacts or Glasses, Hx Hearing Aid, Hx Hearing Problem Opthamlomology History: Denies: Hx Contacts or Glasses Neurological History: Reports: Hx Seizures - Pt has had history of sezures when Hypoglycemic Psychiatric History: Reports: Hx Anxiety, Hx Depression, Hx Panic Disorder, Hx Inpatient Treatment, Hx Schizophrenia, Other Psychiatric Issues/Disorders - PANIC DISORDER Denies: Hx Eating Disorder, Hx of Violent Episodes Against Others - Immunization History Date of Tetanus Vaccine: less than a year ago Infectious Disease History: No Infectious Disease History: Denies: Hx Clostridium Difficile, Hx Hepatitis, Hx Human Immunodeficiency Virus (HIV), Hx of Known/Suspected MRSA, Hx Shingles, Hx Tuberculosis, Hx Known/ Suspected VRE, Hx Known/Suspected VRSA, History Other Infectious Disease, Traveled Outside the [place] in Last 30 Days - Family History Known Family History: Positive: Other - Schizophrenia (father) Negative: Cardiac Disease, Hypertension, Diabetes Family History: Biological father - Schizophrenia, seizures - sister. - Social History Occupation: Student Lives: With Family Alcohol Use: None Hx Substance Use: Yes Substance Use Type: Reports: None, Sedatives Substance Use Comment - Amount & Last Used: cymbalta 30mg , adderal 20mg qd. Hx Tobacco Use: Yes Smoking Status (MU): Former Smoker Type: Cigarettes Length of Time of Smoking/Using Tobacco: 3 years Have You Smoked in the Last Year: No Review of Systems Positive: Fever. Negative: Chills Negative: Erythema Positive: Dental Pain. Negative: Sore Throat Positive: Cough. Negative: Shortness Of Breath Negative: Abdominal Pain, Vomiting, Nausea Negative: dysuria, hematuria Negative: Myalgia, Edema Negative: Rash Neurological: Negative - pt denies dizziness , Other - seizures All Other Systems Reviewed And Are Negative: Yes Physical Exam - Summary Physical Exam Summary: Constitutional: Well-developed, Well-nourished, Alert. (-) Distressed Skin: Warm, Dry HENT: Eyes: Conjunctiva normal Neck: Musculoskeletal ROM normal neck. (-) JVD, (-) Stridor, (-) Tracheal deviation Cardio: Rhythm regular, rate normal, Heart sounds normal; Intact distal pulses ; The pedal pulses are 2+ and symmetric. Radial pulses are 2+ and symmetric. (- ) Murmur Pulmonary/Chest wall: Effort normal. (-) Respiratory distress, (-) Wheezes, (-) Rales Abd: Soft. (-) Tenderness, (-) Distension, (-) Guarding, (-) Rebound Musculoskeletal: (-) Edema Lymph: (-) Cervical adenopathy Neuro: Gross motor tonic-clonic seizures, no tongue biting, no incontinence, postictal. After motor activity: normal consciousness immediately after motor activity seized, asked and answered complex questions, Alert, Oriented x3, Strength normal, Cranial nerves II-XII are grossly intact. (-) Dysmetria, (-) Nystagmus, (-) Ataxia by finger to nose testing, (-) Sensory deficit. Psych: Mood and affect Normal Triage Information Reviewed: Yes Vital Signs On Initial Exam: Initial Vitals Temp Pulse Resp BP Pulse Ox 98.2 F 120 12 95/53 95 08/24/16 00:36 08/24/16 00:36 08/24/16 00:36 08/24/16 00:36 08/24/16 00:36 Vital Signs Reviewed: Yes Diagnostics - Vital Signs Vital Signs Temp Pulse Resp BP Pulse Ox 08/24/16 01:24 16 08/24/16 00:36 98.2 F 120 12 95/53 95 - Laboratory Lab Results: Lab Results 08/24/16 Range/Units 01:00 WBC 9.0 (3.5-10.8) 10^3/ul RBC 4.85 (4.0-5.4) 10^6/ul Hgb 13.6 (12.0-16.0) g/dl Hct 42 (35-47) % MCV 87 (80-97) fL MCH 28 (27-31) pg MCHC 32 (31-36) g/dl RDW 16 H (10.5-15) % Plt Count 312 (150-450) 10^3/ul MPV 8 (7.4-10.4) um3 Neut % (Auto) 52.5 (38-83) % Lymph % (Auto) 23.1 L (25-47) % Glenn % (Auto) 8.5 (1-9) % Eos % (Auto) 15.1 H (0-6) % Baso % (Auto) 0.8 (0-2) % Absolute Neuts (auto) 4.7 (1.5-7.7) 10^3/ul Absolute Lymphs (auto) 2.1 (1.0-4.8) 10^3/ul Absolute Monos (auto) 0.8 (0-0.8) 10^3/ul Absolute Eos (auto) 1.4 H (0-0.6) 10^3/ul Absolute Basos (auto) 0.1 (0-0.2) 10^3/ul Absolute Nucleated RBC 0 10^3/ul Nucleated RBC % 0 Result Diagrams: 08/24/16 01:00 08/24/16 01:00 Lab Statement: Any lab studies that have been ordered have been reviewed, and results considered in the medical decision making process. Course/Dx - Course Course Of Treatment: Reviewed past charts. EEG of Apr 2016, read by Curry, normal. EEG of September 2014, normal. Félix admitted pt on Aug 22, 2016. - Diagnoses Provider Diagnoses: nonepileptic seizures Discharge - Discharge Plan Condition: Stable Disposition: HOME Prescriptions: Divalproex ER TAB(*) [Depakote ER TAB(*)] 250 mg PO BID #60 tab Patient Education Materials: Nonepileptic Seizures (ED) Referrals: Jg Dey MD [Primary Care Provider] - Waltre Gruber MD [Medical Doctor] - Additional Instructions: Follow up with Dr. Gruber (neurologist) within 2 days. The documentation as recorded by the Willian long Janilya accurately reflects the service I personally performed and the decisions made by , Yao Yuan MD.
== END 2016-08-24 03:23 | disposition home or self-care (01) ==
LOC: ED 00:31
DX: G40.89 Other seizures (principal); R05 Cough; R50.9 Fever, unspecified; K08.89 Other specified disorders of teeth and supporting structures; Z87.891 Personal history of nicotine dependence; R42 Dizziness and giddiness
CPT/HCPCS: 36415; 80053; 80320; 83605; 83735; 85025; 99282; A9270-GY; G0480; J2060

== ENCOUNTER 2016-08-29 10:48 | Emergency (ER) | payer OTHER ==
[2016-08-29] MEDS ORDERED: methylPREDNISolone 125 MG* 2 ML VIAL IM ONE (11:04)
[2016-08-29] MEDS ORDERED: EPINEPHrine AMP 1 MG/ML IM ONE (11:04)
[2016-08-29] MEDS ORDERED: diPHENhydraMINE IV* 50 MG/ML 1 ml VIAL (BENADRYL) IM ONE (11:05)
[2016-08-29] MEDS ORDERED: LORazepam TAB(*) 1 MG PO ONE (11:15)
--- NOTE | 2016-08-29 11:22 | UC ---
Allergic Reaction HPI - HPI Summary HPI Summary: WAS AT [facility] THIS MORNING AND ATE A BANANA. SUDDENLY DEVELOPED ABDOMINAL PAIN AND BROKE OUT IN HIVES ALL OVER FACE, NECK, TRUNK AND ARMS. FEELS LIKE HER THROAT IS CLOSING. IS COUGHING, SOB AND VERY ANXIOUS. HAS A H/O ALLERGY TO SHELLFISH. 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 - History of Current Complaint Chief Complaint: UCAllergicReaction Stated Complaint: ALLERGIC REACTION Time Seen by Provider: 08/29/16 11:02 Hx Obtained From: Patient, Family/Communications Field Technician - OPAL Arriaga Last Menstrual Period: 08/29/16 Onset/Duration: Sudden Onset, Lasting Minutes, Still Present Severity Initially: Moderate Severity Currently: Moderate Pain Intensity: 0 Pain Scale Used: 0-10 Numeric Location: Diffuse Character: Pruritus, Hives Aggrevating Factor(s): Nothing Associated Signs And Symptoms: Positive: Abdominal Pain, Cough Wheezing, Difficulty Breathing, Rash, Throat Tightening - Allergies/Home Medications Allergies/Adverse Reactions: Allergies Allergy/AdvReac Type Severity Reaction Status Date / Time Shellfish Allergy Allergy Unknown Verified 08/21/16 12:12 Reaction Details Ketorolac Tromethamine AdvReac Intermediate has Verified 08/22/16 00:07 [From Toradol] seizures Tramadol AdvReac Intermediate See Comment Verified 08/22/16 00:07 Hydrocodone [From Vicodin] AdvReac Mild Vomiting Verified 08/22/16 00:07 PMH/Surg Hx/FS Hx/Imm Hx Endocrine History Of: Denies: Diabetes, Thyroid Disease Cardiovascular History Of: Denies: Cardiac Disorders, Hypertension, Pacemaker/ICD Respiratory History Of: Denies: COPD, Asthma, Pneumonia GI/ History Of: Denies: Ulcer Neurological History Of: Reports: Seizures - Pt has had history of sezures when Hypoglycemic Psychological History Of: Reports: Anxiety, Depression, Schizophrenia - Surgical History Surgical History: None - Family History Known Family History: Negative: Cardiac Disease Family History: Biological father - Schizophrenia - Social History Alcohol Use: None Substance Use Type: None, Sedatives Substance Use Comment - Amount & Last Used: cymbalta 30mg , adderal 20mg qd. Smoking Status (MU): Former Smoker Type: Cigarettes Length of Time of Smoking/Using Tobacco: 3 years Have You Smoked in the Last Year: No Household Exposure Type: Cigarettes - Immunization History Most Recent Influenza Vaccination: March, Most Recent Tetanus Shot: UTD Most Recent Pneumonia Vaccination: n/a Review of Systems Constitutional: Negative Skin: Rash Respiratory: Shortness Of Breath, Cough Cardiovascular: Palpitations Gastrointestinal: Abdominal Pain All Other Systems Reviewed And Are Negative: Yes Physical Exam Triage Information Reviewed: Yes Appearance: Well-Nourished, Other: - PT VERY ANXIOUS, BREATHING HEAVILY AND COUGHING Vital Signs: Initial Vital Signs Temp 99.5 F 08/29/16 10:52 Pulse 156 08/29/16 10:52 Resp 24 08/29/16 10:52 BP 109/83 08/29/16 10:52 Pulse Ox 99 08/29/16 10:52 Vital Signs Reviewed: Yes Eyes: Positive: Conjunctiva Clear ENT: Positive: Hearing grossly normal, Pharynx normal Neck: Positive: Supple, Nontender, No Lymphadenopathy Respiratory Exam: Normal Respiratory: Positive: Respiratory distress. Negative: Stridor, Wheezing Cardiovascular: Positive: Tachycardia Abdomen Description: Positive: Soft Musculoskeletal: Positive: No Edema Neurological: Positive: Alert Psychological: Positive: Normal Response To Family, Age Appropriate Behavior Skin: Positive: Other - DIFFUSELY ERYTHEMATOUS WITH URTICARIAL WHEALS OVER FACE , NECK AND TRUNK. SCARRING OVER BILATERAL FOREARMS C/W H/O CUTTING. Re-Evaluation - Re-Evaluation First Eval Re-Evaluation Time: 11:15 - RASH IMPROVING AND BREATHING BETTER AFTER IM EPI, SOLUMEDROL AND DIPHENHYDRAMINE Change: Improved Second Eval Re-Evaluation Time: 12:15 - FEELS MUCH BETTER. HIVES RESOLVED. FEELS READY TO GO HOME. Change: Improved Allergic Reaction Course/Dx - Course Course Of Treatment: EPINEPHRINE, BENADRYL AND SOLUMEDROL GIVEN IM WITH GOOD EFFECT. PT TO FOLLOW-UP WITH [facility]. HAS EPIPEN IN PURSE. ADVISED TO USE IT AT THE FIRST SIGN OF ALLERGIC RESPONSE. TO ER WITHOUT FAIL IF SX RETURN. - Differential Dx/Diagnosis Provider Diagnoses: ANAPHYLAXIS Discharge - Discharge Plan Condition: Stable Disposition: HOME Prescriptions: Ondansetron ODT TAB* [Zofran Odt TAB*] 4 mg PO Q6H PRN #20 tab.odt PRN Reason: Nausea/Vomiting diPHENhydraMINE PO* [Benadryl PO*] 50 mg PO Q6H PRN #30 cap PRN Reason: Hives predniSONE TAB* [Deltasone TAB*] 50 mg PO DAILY #4 tab Patient Education Materials: Urticaria (ED), Anaphylaxis (ED), General Allergic Reaction (ED) Referrals: Beth Perez MD [Medical Doctor] - If Needed Additional Instructions: TAKE OTC ANTIHISTAMINE DAILY (CLARITIN (LORATADINE), ZYRTEC (CETIRIZINE) OR EDYTA (FEXOFENADINE) IN THE MORNING, BENADRYL AT NIGHT) KEEP COOL, CLEAN AND DRY GO TO ER WITHOUT FAIL IF YOU DEVELOP RECURRENT OR WORSENING SYMPTOMS. [facility] Address: [facility] [address], [place] [address] [facility] [address] [place], [place] [address]charmaine Mejia, [address] [place] [address]
[2016-08-29 12:04] VITALS: BP 105/60
== END 2016-08-29 12:22 | disposition home or self-care (01) ==
LOC: UCEAST 10:48
DX: T78.09XA Anaphylactic reaction due to other food products, initial encounter (principal); Z88.6 Allergy status to analgesic agent; Z88.5 Allergy status to narcotic agent; Z87.891 Personal history of nicotine dependence
CPT/HCPCS: 96372; 99212; A9270-GY; G0463

== ENCOUNTER 2016-08-31 17:17 | Emergency (ER) | payer OTHER ==
[2016-08-31 18:21] VITALS: BP 116/69
== END 2016-08-31 18:40 | disposition left against medical advice (07) ==
LOC: ED 17:17
DX: T78.40XA Allergy, unspecified, initial encounter (principal); X58.XXXA Exposure to other specified factors, initial encounter; Z53.21 Procedure and treatment not carried out due to patient leaving prior to being seen by health care provider

== ENCOUNTER 2016-09-02 19:33 | Emergency (ER) | payer OTHER ==
[2016-09-02 19:48] VITALS: BP 143/75
[2016-09-02] MEDS ORDERED: methylPREDNISolone 125 MG* 2 ML VIAL IM ONE (20:03)
[2016-09-02] MEDS ORDERED: EPINEPHrine AMP 1 MG/ML IM ONE (20:03)
--- NOTE | 2016-09-02 20:07 | UC ---
Allergic Reaction HPI - History of Current Complaint Chief Complaint: UCAllergicReaction Stated Complaint: POSSIBLE ALLERGRIC REACTION Time Seen by Provider: 09/02/16 19:53 Hx Obtained From: Patient, Family/Slurry Control Tender Hx Last Menstrual Period: 08/26/16 ?: No Onset/Duration: Sudden Onset - states allergy symps started after taking 1/4 of her depakote pill. now has diff breathing and hives. took benadryl 50mg po before arriving Severity Initially: Mild Severity Currently: Moderate Aggrevating Factor(s): Nothing Alleviating Factor(s): Nothing Associated Signs And Symptoms: Positive: Cough Wheezing, Difficulty Breathing, Rash. 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 - Allergies/Home Medications Allergies/Adverse Reactions: Allergies Allergy/AdvReac Type Severity Reaction Status Date / Time Shellfish Allergy Allergy Unknown Verified 08/21/16 12:12 Reaction Details Ketorolac Tromethamine AdvReac Intermediate has Verified 08/22/16 00:07 [From Toradol] seizures Tramadol AdvReac Intermediate See Comment Verified 08/22/16 00:07 Hydrocodone [From Vicodin] AdvReac Mild Vomiting Verified 08/22/16 00:07 PMH/Surg Hx/FS Hx/Imm Hx Previously Healthy: Yes Endocrine History Of: Denies: Diabetes, Thyroid Disease Cardiovascular History Of: Denies: Cardiac Disorders, Hypertension, Pacemaker/ICD Respiratory History Of: Denies: COPD, Asthma, Pneumonia GI/ History Of: Denies: Ulcer Neurological History Of: Reports: Seizures - Pt has had history of sezures when Hypoglycemic Psychological History Of: Reports: Anxiety, Depression, Schizophrenia - Surgical History Surgical History: None - Family History Known Family History: Positive: Other - father -schizophrenia Negative: Cardiac Disease Family History: Biological father - Schizophrenia - Social History Occupation: Unemployed Lives: With Family Alcohol Use: None Substance Use Type: None, Sedatives Substance Use Comment - Amount & Last Used: cymbalta 30mg , adderal 20mg qd. Smoking Status (MU): Former Smoker Type: Cigarettes Length of Time of Smoking/Using Tobacco: 3 years Have You Smoked in the Last Year: No Household Exposure Type: Cigarettes - Immunization History Most Recent Influenza Vaccination: March, Most Recent Tetanus Shot: UTD Most Recent Pneumonia Vaccination: n/a Review of Systems Constitutional: Negative Skin: Rash - few hives-mostly on forearms where cut lopez are, Other - multiple cut lopez on arms and body Eyes: Negative Respiratory: Shortness Of Breath, Cough Cardiovascular: Negative Gastrointestinal: Negative Neurovascular: Negative Musculoskeletal: Negative Neurological: Negative Psychological: Anxious All Other Systems Reviewed And Are Negative: Yes Physical Exam Triage Information Reviewed: Yes Appearance: Well-Nourished, Other: - pt hyperventilating, talking rapidly, very anxious Vital Signs: Initial Vital Signs Temp 99.3 F 09/02/16 19:42 Pulse 125 09/02/16 19:42 Resp 22 09/02/16 19:42 BP 143/75 09/02/16 19:42 Pulse Ox 97 09/02/16 19:42 Vital Signs Reviewed: Yes Eyes: Positive: Conjunctiva Clear Respiratory: Positive: Lungs clear, No accessory muscle use, Decreased breath sounds, Other: - forces tight cough, respirations slow when emotional support given. Negative: Stridor, Wheezing Cardiovascular: Positive: RRR, Brisk Capillary Refill, Tachycardia Neurological Exam: Normal Neurological: Positive: Alert Psychological: Positive: Other: - anxious, tearful Skin: Positive: rashes - few urticaria forearms Re-Evaluation - Re-Evaluation First Eval Re-Evaluation Time: 20:35 - respirations at 18, quiet, no resp distress, heart rate 80 and pt calm. Lungs CTA Change: Improved Allergic Reaction Course/Dx - Differential Dx/Diagnosis Differential Diagnosis/HQI/PQRI: Anaphylaxis, Bronchospasm, Urticaria, Other - anxiety attack Provider Diagnoses: allergic reaction. anxiety Discharge - Discharge Plan Condition: Improved Disposition: HOME Prescriptions: Epinephrine [Epipen 2-Linus] 0.3 mg IM ONCE #1 inj Patient Education Materials: Urticaria (ED), Epinephrine (By injection) Referrals: Jg Dey MD [Primary Care Provider] - 2 Days (for recheck) Additional Instructions: rest use benadryl 50mg every 4-6hours as needed for hives or allergy symptoms for next 12-48hours use epi-pen as directed Return here or report to ER if your symptoms worsen Make sure to follow-up with your primary provider on Sunday
== END 2016-09-02 20:57 | disposition home or self-care (01) ==
LOC: UCEAST 19:33
DX: T78.40XA Allergy, unspecified, initial encounter (principal); F41.9 Anxiety disorder, unspecified; Z88.5 Allergy status to narcotic agent; Z88.8 Allergy status to other drugs, medicaments and biological substances
CPT/HCPCS: 96372; 99212; G0463; J0171; J2930

== ENCOUNTER 2016-10-06 17:31 | Emergency (ER) | payer MEDICAID, OTHER ==
[2016-10-06] MEDS ORDERED: NS 0.9% 1000 ML* 2,000 ML IV ONE (17:55)
[2016-10-06] MEDS ORDERED: oxyCODONE TAB* 5 MG TAB PO ONE (17:55)
[2016-10-06 18:25] LABS: Hematocrit 36 % (35-47); Hemoglobin 11.9 g/dl (12.0-16.0); Mean Corpuscular HGB Conc 33 g/dl (31-36); Mean Corpuscular Hemoglobin 29 pg (27-31); Mean Corpuscular Volume 89 fL (80-97); Mean Platelet Volume 9 um3 (7.4-10.4); Red Blood Count 4.07 10^6/ul (4.0-5.4); Red Cell Distribution Width 16 % (10.5-15); White Blood Count 6.2 10^3/ul (3.5-10.8)
[2016-10-06 18:45] LABS: ALT 11 U/L (7-52); AST 17 U/L (13-39); Albumin 3.8 g/dL (3.2-5.2); Alkaline Phosphatase 37 U/L (34-104); Anion Gap 3 mmol/L (2-11); BUN/Creatinine Ratio 16.4 (8-20); Blood Urea Nitrogen 10 mg/dL (6-24); CO2 Carbon Dioxide 28 mmol/L (22-32); Calcium 8.9 mg/dL (8.6-10.3); Chloride 103 mmol/L (101-111); EGFR African American 159.2 (>60); EGFR Non-African American 123.8 (>60); Globulin 2.5 g/dL (2-4); Glucose 90 mg/dL (70-100); Potassium 3.6 mmol/L (3.5-5.0); Sodium 134 mmol/L (133-145); Total Protein 6.3 g/dL (6.4-8.9)
--- NOTE | 2016-10-06 19:01 | RAD ---
INDICATION: Syncope. COMPARISON: Comparison is made with a prior chest x-ray study from February 09, 2016. TECHNIQUE: A portable view of the chest was obtained. FINDINGS: Cardiac and mediastinal contours appear to be within normal limits. The lungs are clear. No pleural effusion is seen. IMPRESSION: NO EVIDENCE FOR ACUTE DISEASE.
[2016-10-06 19:04] LABS: Acetaminophen < 15 mcg/mL; Alcohol < 10 mg/dL (<10); Salicylate < 2.50 mg/dL (<30); Valproic Acid < 13.0 mcg/mL (50-100)
[2016-10-06 19:17] LABS: TSH (Thyroid Stimulating Horm) 0.68 mcIU/mL (0.34-5.60)
[2016-10-06] MEDS ORDERED: LORazepam INJ* 2 MG/ML 1 ML VIAL IV ONE (19:59)
[2016-10-06] MEDS ORDERED: ALPRAZolam TAB* 0.5 MG PO ONE ×2 (20:26→20:38)
--- NOTE | 2016-10-06 20:31 | ED ---
Curt Ronquillo Billy, scribed for Corey López MD on 10/06/16 at 1759 . Syncope/Near Syncope - HPI Summary HPI Summary: Patient is a 21 year-old female coming to [facility] for evaluation of a sudden onset syncopal episode at work today. She states that she went to the bathroom and woke up on the floor of the bathroom with a laceration on the right wrist. She believes she cut her wrist on some items littered on the floor of the bathroom. She has a history of seizures, but she states that she usually has amnesia and aura after seizures, which she denies today. She denies any other symptoms at this time. She felt normal this morning, but did not have breakfast. Sinus infection 2 weeks ago. Patient denies any suicidal ideation. She admits to self-inflicted cutting in the past, although she has not done so in more than one year. She does state, however, that she has had trouble with her Xanax prescription and has not taken any Xanax for the last several days. - History Of Current Complaint Chief Complaint: EDSyncope Time Seen by Provider: 10/06/16 17:42 Hx Obtained From: Patient Onset/Duration: Sudden Onset Timing: Hours Context: Unwitnessed Activity At Onset: At Rest Associated Head Trauma: No Aggravating Factor(s): Nothing Alleviating Factor(s): Nothing - Allergies/Home Medications Allergies/Adverse Reactions: Allergies Allergy/AdvReac Type Severity Reaction Status Date / Time Shellfish Allergy Allergy Unknown Verified 08/21/16 12:12 Reaction Details Ketorolac Tromethamine AdvReac Intermediate has Verified 08/22/16 00:07 [From Toradol] seizures Tramadol AdvReac Intermediate See Comment Verified 08/22/16 00:07 Hydrocodone [From Vicodin] AdvReac Mild Vomiting Verified 08/22/16 00:07 PMH/Surg Hx/FS Hx/Imm Hx Endocrine/Hematology History: Denies: Hx Diabetes, Hx Thyroid Disease, Hx Anemia, Hx Unexplained Bleeding Cardiovascular History: Denies: Hx Cardiac Arrest, Hx Embolism, Hx Hypertension, Hx Pacemaker/ICD Respiratory History: Denies: Hx Asthma, Hx Chronic Obstructive Pulmonary Disease (COPD), Hx Pneumonia GI History: Denies: Hx Ulcer Sensory History: Denies: Hx Contacts or Glasses, Hx Hearing Aid, Hx Hearing Problem Opthamlomology History: Denies: Hx Contacts or Glasses Neurological History: Reports: Hx Seizures - Pt has had history of sezures when Hypoglycemic Psychiatric History: Reports: Hx Anxiety, Hx Depression, Hx Panic Disorder, Hx Inpatient Treatment, Hx Schizophrenia, Other Psychiatric Issues/Disorders - PANIC DISORDER Denies: Hx Eating Disorder, Hx of Violent Episodes Against Others - Immunization History Date of Tetanus Vaccine: less than a year ago Infectious Disease History: Denies: Hx Clostridium Difficile, Hx Hepatitis, Hx Human Immunodeficiency Virus (HIV), Hx of Known/Suspected MRSA, Hx Shingles, Hx Tuberculosis, Hx Known/ Suspected VRE, Hx Known/Suspected VRSA, History Other Infectious Disease - Family History Known Family History: Positive: Other - father -schizophrenia Negative: Cardiac Disease Family History: Biological father - Schizophrenia - Social History Alcohol Use: None Hx Substance Use: Yes Substance Use Type: Reports: None, Sedatives Substance Use Comment - Amount & Last Used: cymbalta 30mg , adderal 20mg qd. Hx Tobacco Use: Yes Smoking Status (MU): Former Smoker Type: Cigarettes Length of Time of Smoking/Using Tobacco: 3 years Have You Smoked in the Last Year: No Review of Systems Positive: Other - right wrist lac Positive: Syncope All Other Systems Reviewed And Are Negative: Yes Physical Exam Triage Information Reviewed: Yes Vital Signs On Initial Exam: Initial Vital Signs Temp 98.9 F 10/06/16 17:47 Pulse 85 10/06/16 17:47 Resp 20 10/06/16 17:47 BP 116/69 10/06/16 17:47 Pulse Ox 98 10/06/16 17:47 Vital Signs Reviewed: Yes Appearance: Positive: Well-Appearing, No Pain Distress Skin: Positive: Warm, Skin Color Reflects Adequate Perfusion, Dry, Other - Numerous old lacerations on the upper extremities, likely secondary to self- inflicted wounds. New laceration to the dorsom of right wrist, sc 4cm. No active bleeding. Tendons intact. Head/Face: Positive: Normal Head/Face Inspection Eyes: Positive: EOMI, PADMINI Neck: Positive: Supple, Nontender Respiratory/Lung Sounds: Positive: Clear to Auscultation, Breath Sounds Present Cardiovascular: Positive: RRR Abdomen Description: Positive: Nontender, Soft Bowel Sounds: Positive: Present Musculoskeletal: Positive: Normal, Strength/ROM Intact Neurological: Positive: Normal, Sensory/Motor Intact, Alert, Oriented to Person Place, Time Psychiatric: Positive: Anxious AVPU Assessment: Alert Diagnostics - Vital Signs Vital Signs Temp Pulse Resp BP Pulse Ox 10/06/16 20:04 24 10/06/16 18:50 82 16 110/77 100 10/06/16 17:47 98.9 F 85 20 116/69 98 - Laboratory Lab Results: Lab Results 10/06/16 10/06/16 Range/Units 18:13 18:13 WBC 6.2 (3.5-10.8) 10^3/ul RBC 4.07 (4.0-5.4) 10^6/ul Hgb 11.9 L (12.0-16.0) g/dl Hct 36 (35-47) % MCV 89 (80-97) fL MCH 29 (27-31) pg MCHC 33 (31-36) g/dl RDW 16 H (10.5-15) % Plt Count 332 (150-450) 10^3/ul MPV 9 (7.4-10.4) um3 Neut % (Auto) 49.3 (38-83) % Lymph % (Auto) 26.2 (25-47) % [place] % (Auto) 9.5 H (1-9) % Eos % (Auto) 14.0 H (0-6) % Baso % (Auto) 1.0 (0-2) % Absolute Neuts (auto) 3.1 (1.5-7.7) 10^3/ul Absolute Lymphs (auto) 1.6 (1.0-4.8) 10^3/ul Absolute Monos (auto) 0.6 (0-0.8) 10^3/ul Absolute Eos (auto) 0.9 H (0-0.6) 10^3/ul Absolute Basos (auto) 0.1 (0-0.2) 10^3/ul Absolute Nucleated RBC 0 10^3/ul Nucleated RBC % 0 Sodium 134 (133-145) mmol/L Potassium 3.6 (3.5-5.0) mmol/L Chloride 103 (101-111) mmol/L Carbon Dioxide 28 (22-32) mmol/L Anion Gap 3 (2-11) mmol/L BUN 10 (6-24) mg/dL Creatinine 0.61 (0.51-0.95) mg/dL Est GFR ( Amer) 159.2 (>60) Est GFR (Non-Af Amer) 123.8 (>60) BUN/Creatinine Ratio 16.4 (8-20) Glucose 90 (70-100) mg/dL Calcium 8.9 (8.6-10.3) mg/dL Total Bilirubin 0.60 (0.2-1.0) mg/dL AST 17 (13-39) U/L ALT 11 (7-52) U/L Alkaline Phosphatase 37 (34-104) U/L Troponin I 0.00 (<0.04) ng/mL Total Protein 6.3 L (6.4-8.9) g/dL Albumin 3.8 (3.2-5.2) g/dL Globulin 2.5 (2-4) g/dL Albumin/Globulin Ratio 1.5 (1-3) TSH 0.68 (0.34-5.60) mcIU/mL Beta HCG, Quant < 0.60 mIU/mL Salicylates < 2.50 (<30) mg/dL Acetaminophen < 15 mcg/mL Valproic Acid < 13.0 L (50-100) mcg/mL Serum Alcohol < 10 (<10) mg/dL Result Diagrams: 10/06/16 18:13 10/06/16 18:13 Lab Statement: Any lab studies that have been ordered have been reviewed, and results considered in the medical decision making process. - Radiology CXR Xray Interpretation: No Acute Changes Radiology Interpretation Completed By: Radiologist - EKG 1924 EKG Interpretation: sinus arrythmia 79 bpm, normal ST segment, no ectopy Re-Evaluation - Re-Evaluation First Eval Re-Evaluation Time: 20:00 Change: Improved Course/Dx Assessment/Plan: PATIENT DENIED SI/HI. STATES THE WRIST LACERATION OCCURRED ON A PIECE OF METAL WHEN SHE FELL. HAS BEEN OUT OF XANAX 2MG PO BID FOR 3 DAYS. DENIES SEIZURE ACTIVITY TODAY. LACERATION SEWN BY PA. DISCHARGE HOME STABLE. - Diagnoses Provider Diagnoses: Syncope, Anxiety, Laceration Discharge - Discharge Plan Condition: Stable Disposition: HOME Patient Education Materials: Syncope (ED), Anxiety (ED), Laceration (ED) Referrals: Jg Dey MD [Primary Care Provider] - Additional Instructions: FOLLOW UP WITH YOUR DOCTOR. RETURN TO THE EMERGENCY DEPARTMENT FOR ANY WORSENING OF YOUR CONDITION OR QUESTIONS OR CONCERNS. The documentation as recorded by the Curt long Billy accurately reflects the service I personally performed and the decisions made by me, Corey López MD.
--- NOTE | 2016-10-06 20:31 | PN ---
Progress Note - Progress Note Note: Mrs Hubbard sustained a laceration to her posterior distal forearm while at work. She is unsure how it occurred. Denies suidical attempt and ideation. I placed 8 simple interrupted sutures using sterile procedure without complication. well-approximated and closed nicely. Lido with epi local anesthetic was used. Told to watch for signs and symptoms of infection and to have them removed in 7-10 days.
[2016-10-06 20:51] VITALS: BP 114/78
== END 2016-10-06 20:50 | disposition home or self-care (01) ==
LOC: ED 17:31
DX: R55 Syncope and collapse (principal); S61.511A Laceration without foreign body of right wrist, initial encounter; Z87.891 Personal history of nicotine dependence; W19.XXXA Unspecified fall, initial encounter; Y93.9 Activity, unspecified; Y92.9 Unspecified place or not applicable
CPT/HCPCS: 36415; 71010; 80053; 80164; 80320; 80329; 84443; 84484; 84702; 85025; 93005; 96374; 99283; A9270-GY; G0480; J2060

== ENCOUNTER 2016-10-16 01:20 | Emergency (ER) | payer OTHER ==
[2016-10-16] MEDS ORDERED: NS 0.9% 1000 ML* 1,000 ML IV ONE (02:51)
[2016-10-16 03:00] LABS: Hematocrit 40 % (35-47); Hemoglobin 12.9 g/dl (12.0-16.0); Mean Corpuscular HGB Conc 32 g/dl (31-36); Mean Corpuscular Hemoglobin 29 pg (27-31); Mean Corpuscular Volume 89 fL (80-97); Mean Platelet Volume 9 um3 (7.4-10.4); Red Blood Count 4.48 10^6/ul (4.0-5.4); Red Cell Distribution Width 15 % (10.5-15); White Blood Count 11.4 10^3/ul (3.5-10.8)
[2016-10-16 03:01] LABS: Comments Flag Yes
[2016-10-16 03:02] LABS: Add Diff/Slide Review? Slide Review Added
[2016-10-16] MEDS ORDERED: Morphine INJ* 2 MG/ML 1 ML CARPUJECT IV ONE (03:12)
[2016-10-16 03:21] LABS: ALT 9 U/L (7-52); AST 15 U/L (13-39); Albumin 4.2 g/dL (3.2-5.2); Alkaline Phosphatase 43 U/L (34-104); Anion Gap 5 mmol/L (2-11); BUN/Creatinine Ratio 13.2 (8-20); Blood Urea Nitrogen 9 mg/dL (6-24); C Reactive Protein < 1.00 mg/L (< 5.00); CO2 Carbon Dioxide 24 mmol/L (22-32); Calcium 9.6 mg/dL (8.6-10.3); Chloride 103 mmol/L (101-111); EGFR African American 140.5 (>60); EGFR Non-African American 109.2 (>60); Globulin 2.5 g/dL (2-4); Glucose 75 mg/dL (70-100); Lipase 33 U/L (11.0-82.0); Magnesium 1.9 mg/dL (1.9-2.7); Potassium 4.3 mmol/L (3.5-5.0); Sodium 132 mmol/L (133-145); Total Protein 6.7 g/dL (6.4-8.9)
[2016-10-16 06:07] LABS: Urine Bacteria 1+ (Absent); Urine Bilirubin Negative (Negative); Urine Glucose Negative (Negative); Urine Nitrite Negative (Negative)
[2016-10-16] MEDS ORDERED: Iohexol 300* (CONTRAST) 10 ML SDV IV ONE (06:14)
[2016-10-16] MEDS ORDERED: Sulfamethox/Trimethoprim DS 800/160* TAB PO ONE (07:37)
--- NOTE | 2016-10-16 07:43 | ED ---
Curt Ronquillo Billy, scribed for Eder Messina MD on 10/16/16 at 0301 . Complex/Multi-Sys Presentation - HPI Summary HPI Summary: Patient is a 21 y/o female coming to [facility] for evaluation of head pain after falling down a flight of stairs today at 0030. Patient has a laceration to the right forehead. She also states she has had intermittent, sharp, abdominal pain since midnight this date. Denies any fevers, nausea, vomiting, or urinary symptoms. LMP 1 week ago. Patient has a history of seizures but denies any seizures today. - History Of Current Complaint Chief Complaint: EDHeadInjury Time Seen by Provider: 10/16/16 02:46 Hx Obtained From: Patient Onset/Duration: Gradual Onset, Lasting Hours, Still Present Timing: Constant Severity Currently: Moderate Severity Initially: Moderate Location: Pain At: - abdominal pain, head pain Aggravating Factor(s): none Alleviating Factor(s): none Associated Signs And Symptoms: Positive: Headache, Abdominal Pain - Allergies/Home Medications Allergies/Adverse Reactions: Allergies Allergy/AdvReac Type Severity Reaction Status Date / Time Shellfish Allergy Allergy Unknown Verified 10/16/16 01:32 Reaction Details Ketorolac Tromethamine AdvReac Intermediate has Verified 10/16/16 01:32 [From Toradol] seizures Tramadol AdvReac Intermediate See Comment Verified 10/16/16 01:32 Hydrocodone [From Vicodin] AdvReac Mild Vomiting Verified 10/16/16 01:32 PMH/Surg Hx/FS Hx/Imm Hx Endocrine/Hematology History: Denies: Hx Diabetes, Hx Thyroid Disease, Hx Anemia, Hx Unexplained Bleeding Cardiovascular History: Denies: Hx Cardiac Arrest, Hx Embolism, Hx Hypertension, Hx Pacemaker/ICD Respiratory History: Denies: Hx Asthma, Hx Chronic Obstructive Pulmonary Disease (COPD), Hx Pneumonia GI History: Denies: Hx Ulcer Sensory History: Denies: Hx Contacts or Glasses, Hx Hearing Aid, Hx Hearing Problem Opthamlomology History: Denies: Hx Contacts or Glasses Neurological History: Reports: Hx Seizures - Pt has had history of sezures when Hypoglycemic Psychiatric History: Reports: Hx Anxiety, Hx Depression, Hx Panic Disorder, Hx Inpatient Treatment, Hx Schizophrenia, Other Psychiatric Issues/Disorders - PANIC DISORDER Denies: Hx Eating Disorder, Hx of Violent Episodes Against Others - Immunization History Date of Tetanus Vaccine: less than a year ago Infectious Disease History: No Infectious Disease History: Denies: Hx Clostridium Difficile, Hx Hepatitis, Hx Human Immunodeficiency Virus (HIV), Hx of Known/Suspected MRSA, Hx Shingles, Hx Tuberculosis, Hx Known/ Suspected VRE, Hx Known/Suspected VRSA, History Other Infectious Disease, Traveled Outside the [place] in Last 30 Days - Family History Known Family History: Positive: Other - father -schizophrenia Negative: Cardiac Disease Family History: Biological father - Schizophrenia - Social History Alcohol Use: None Hx Substance Use: Yes Substance Use Type: Reports: None, Sedatives Substance Use Comment - Amount & Last Used: cymbalta 30mg , adderal 20mg qd. Hx Tobacco Use: Yes Smoking Status (MU): Former Smoker Type: Cigarettes Length of Time of Smoking/Using Tobacco: 3 years Have You Smoked in the Last Year: No Review of Systems Negative: Fever Positive: Abdominal Pain. Negative: Vomiting, Nausea Negative: dysuria Positive: Other - lac head Positive: Headache All Other Systems Reviewed And Are Negative: Yes Physical Exam Triage Information Reviewed: Yes Vital Signs On Initial Exam: Initial Vitals Temp Pulse Resp BP Pulse Ox 97.8 F 106 16 124/68 100 10/16/16 01:21 10/16/16 01:21 10/16/16 01:21 10/16/16 01:21 10/16/16 01:21 Vital Signs Reviewed: Yes Appearance: Positive: Well-Appearing, No Pain Distress Skin: Positive: Warm, Other - 2cm rt lat orbital lac Head/Face: Positive: Other Eyes: Positive: PADMINI ENT: Positive: Hearing grossly normal Neck: Positive: Supple Respiratory/Lung Sounds: Positive: Clear to Auscultation, Breath Sounds Present Cardiovascular: Positive: RRR Abdomen Description: Positive: Nontender, Soft Bowel Sounds: Positive: Present Neurological: Positive: Sensory/Motor Intact, Alert, Oriented to Person Place, Time Psychiatric: Positive: Affect/Mood Appropriate - Agustín Coma Scale Coma Scale Total: 15 Procedures - Laceration/Wound Repair 1 Location: face Description: Linear Length, Depth and Shape: 2cm Betadine Prep?: Yes Laceration/Wound Explored: clean Closure: SteriStrips Layer Closure?: No Sterile Dressing Applied?: Yes Diagnostics - Vital Signs Vital Signs Temp Pulse Resp BP Pulse Ox 10/16/16 01:21 97.8 F 106 16 124/68 100 - Laboratory Lab Results: Lab Results 10/16/16 10/16/16 10/16/16 Range/Units 02:30 02:30 02:30 WBC 11.4 H (3.5-10.8) 10^3/ul RBC 4.48 (4.0-5.4) 10^6/ul Hgb 12.9 (12.0-16.0) g/dl Hct 40 (35-47) % MCV 89 (80-97) fL MCH 29 (27-31) pg MCHC 32 (31-36) g/dl RDW 15 (10.5-15) % Plt Count 347 (150-450) 10^3/ul MPV 9 (7.4-10.4) um3 Neut % (Auto) 49.9 (38-83) % Lymph % (Auto) 19.4 L (25-47) % [place] % (Auto) 8.5 (1-9) % Eos % (Auto) 20.9 H (0-6) % Baso % (Auto) 1.3 (0-2) % Absolute Neuts (auto) 5.7 (1.5-7.7) 10^3/ul Absolute Lymphs (auto) 2.2 (1.0-4.8) 10^3/ul Absolute Monos (auto) 1.0 H (0-0.8) 10^3/ul Absolute Eos (auto) 2.4 H (0-0.6) 10^3/ul Absolute Basos (auto) 0.1 (0-0.2) 10^3/ul Absolute Nucleated RBC 0 10^3/ul Nucleated RBC % 0 Sodium 132 L (133-145) mmol/L Potassium 4.3 (3.5-5.0) mmol/L Chloride 103 (101-111) mmol/L Carbon Dioxide 24 (22-32) mmol/L Anion Gap 5 (2-11) mmol/L BUN 9 (6-24) mg/dL Creatinine 0.68 (0.51-0.95) mg/dL Est GFR ( Amer) 140.5 (>60) Est GFR (Non-Af Amer) 109.2 (>60) BUN/Creatinine Ratio 13.2 (8-20) Glucose 75 (70-100) mg/dL Lactic Acid 1.5 (0.5-2.0) mmol/L Calcium 9.6 (8.6-10.3) mg/dL Magnesium 1.9 (1.9-2.7) mg/dL Total Bilirubin 0.40 (0.2-1.0) mg/dL AST 15 (13-39) U/L ALT 9 (7-52) U/L Alkaline Phosphatase 43 (34-104) U/L C-Reactive Protein < 1.00 (< 5.00) mg/L Total Protein 6.7 (6.4-8.9) g/dL Albumin 4.2 (3.2-5.2) g/dL Globulin 2.5 (2-4) g/dL Albumin/Globulin Ratio 1.7 (1-3) Lipase 33 (11.0-82.0) U/L Beta HCG, Quant < 0.60 mIU/mL Urine Color Urine Appearance Urine pH (5-9) Ur Specific [place] (1.010-1.030) Urine Protein (Negative) Urine Ketones (Negative) Urine Blood (Negative) Urine Nitrate (Negative) Urine Bilirubin (Negative) Urine Urobilinogen (Negative) Ur Leukocyte Esterase (Negative) Urine WBC (Auto) (Absent) Urine RBC (Auto) (Absent) Ur Squamous Epith Cells (Absent) Urine Bacteria (Absent) Urine Glucose (Negative) 10/16/16 Range/Units 05:45 WBC (3.5-10.8) 10^3/ul RBC (4.0-5.4) 10^6/ul Hgb (12.0-16.0) g/dl Hct (35-47) % MCV (80-97) fL MCH (27-31) pg MCHC (31-36) g/dl RDW (10.5-15) % Plt Count (150-450) 10^3/ul MPV (7.4-10.4) um3 Neut % (Auto) (38-83) % Lymph % (Auto) (25-47) % [place] % (Auto) (1-9) % Eos % (Auto) (0-6) % Baso % (Auto) (0-2) % Absolute Neuts (auto) (1.5-7.7) 10^3/ul Absolute Lymphs (auto) (1.0-4.8) 10^3/ul Absolute Monos (auto) (0-0.8) 10^3/ul Absolute Eos (auto) (0-0.6) 10^3/ul Absolute Basos (auto) (0-0.2) 10^3/ul Absolute Nucleated RBC 10^3/ul Nucleated RBC % Sodium (133-145) mmol/L Potassium (3.5-5.0) mmol/L Chloride (101-111) mmol/L Carbon Dioxide (22-32) mmol/L Anion Gap (2-11) mmol/L BUN (6-24) mg/dL Creatinine (0.51-0.95) mg/dL Est GFR ( Amer) (>60) Est GFR (Non-Af Amer) (>60) BUN/Creatinine Ratio (8-20) Glucose (70-100) mg/dL Lactic Acid (0.5-2.0) mmol/L Calcium (8.6-10.3) mg/dL Magnesium (1.9-2.7) mg/dL Total Bilirubin (0.2-1.0) mg/dL AST (13-39) U/L ALT (7-52) U/L Alkaline Phosphatase (34-104) U/L C-Reactive Protein (< 5.00) mg/L Total Protein (6.4-8.9) g/dL Albumin (3.2-5.2) g/dL Globulin (2-4) g/dL Albumin/Globulin Ratio (1-3) Lipase (11.0-82.0) U/L Beta HCG, Quant mIU/mL Urine Color Yellow Urine Appearance Cloudy Urine pH 7.0 (5-9) Ur Specific [place] 1.019 (1.010-1.030) Urine Protein Negative (Negative) Urine Ketones Negative (Negative) Urine Blood 3+ H (Negative) Urine Nitrate Negative (Negative) Urine Bilirubin Negative (Negative) Urine Urobilinogen Negative (Negative) Ur Leukocyte Esterase 2+ H (Negative) Urine WBC (Auto) 1+(6-10/hpf) H (Absent) Urine RBC (Auto) 3+(>10/hpf) H (Absent) Ur Squamous Epith Cells Present H (Absent) Urine Bacteria 1+ H (Absent) Urine Glucose Negative (Negative) Result Diagrams: 10/16/16 02:30 10/16/16 02:30 Lab Statement: Any lab studies that have been ordered have been reviewed, and results considered in the medical decision making process. - CT brain CT Interpretation Completed By: Radiologist - No mass effect or intracranial hemorrhage. Right temporal cutaneous injury noted. No other traumatic injuries identified. abd/pel CT Interpretation Completed By: Radiologist - See EMR* Re-Evaluation - Re-Evaluation First Eval Change: Improved Complex Multi-Symp Course/Dx - Diagnoses Provider Diagnoses: abdominal pain, urinary tract infection, laceration Discharge - Discharge Plan Condition: Improved Disposition: HOME Prescriptions: Sulfamethox/Trimethoprim DS* [Bactrim DS 800/160 TAB*] 1 tab PO BID #14 tab Patient Education Materials: Care For Your Stitches (ED), Laceration (ED), Urinary Tract Infection in Women (ED), Abdominal Pain (ED) Referrals: Jg Dey MD [Primary Care Provider] - The documentation as recorded by the Curt long Billy accurately reflects the service I personally performed and the decisions made by me, Eder Messina MD.
--- NOTE | 2016-10-16 07:51 | RAD ---
INDICATION: Pain at the right temporal area after falling down stairs COMPARISON: Most recent CT of the brain October 15, 2014 TECHNIQUE: Contiguous axial sections of the brain were obtained from the skull base to the vertex without contrast. FINDINGS: The ventricles, cisterns and sulci are within normal limits. The garsia-white matter differentiation is adequately maintained and there is no sulcal effacement. No significant focal abnormality or mass effect is present. There is no evidence for intracranial hemorrhage. No significant focal osseous abnormality is present. The visualized portion of the paranasal sinuses and mastoid air cells appear clear. IMPRESSION: Normal CT of the brain.
[2016-10-16 07:59] VITALS: BP 122/66
--- NOTE | 2016-10-16 08:10 | RAD ---
INDICATION: Trauma, abdominal pain. COMPARISON: Comparison is made with a prior CT of the abdomen and pelvis from July 16, 2015. TECHNIQUE: A CT scan of the abdomen and pelvis was performed with intravenous and oral contrast following intravenous injection of 91 ml of Omnipaque 300 nonionic contrast. Contiguous axial sections were obtained from the lung bases through the symphysis pubis. Images were reconstructed in the coronal and sagittal planes. FINDINGS: The lung bases are clear. No pleural effusion is present. The liver is normal in size without significant focal abnormality. No intra or extra hepatic ductal distention is present. No calcified gallstones are seen. The spleen is mildly enlarged and unchanged in size from the prior exam. There are a couple clefts present within the spleen. No other focal abnormality is seen. The pancreas appears to be within normal limits. The kidneys and adrenal glands are normal in size. No hydronephrosis is seen. There is a small cyst in the upper pole of the left kidney measuring 0.7 cm in size. The aorta is normal in caliber and demonstrates homogeneous contrast opacification. There is a retroaortic left renal vein. No significant enlarged retroperitoneal lymph nodes are seen. The stomach, small and large bowel appear nondistended. The appendix is within normal limits. There is mild descending and sigmoid diverticulosis without evidence for diverticulitis. The uterus is anteverted and normal in size. There is a 3.0 x 1.8 x 2.0 cm left ovarian cyst. No free intraperitoneal air or fluid is seen. There is a mild lumbar scoliosis convex toward the left side. No significant focal osseous abnormality or fracture is seen. IMPRESSION: 1. NO EVIDENCE FOR ACUTE FINDING OR CAUSE FOR THE PATIENT'S ABDOMINAL PAIN IS SEEN. 2. 3 CENTIMETER LEFT OVARIAN CYST.
== END 2016-10-16 07:58 | disposition home or self-care (01) ==
LOC: ED 01:20
DX: N39.0 Urinary tract infection, site not specified (principal); R51 Headache; R10.84 Generalized abdominal pain; S01.81XA Laceration without foreign body of other part of head, initial encounter; Z87.891 Personal history of nicotine dependence; X58.XXXA Exposure to other specified factors, initial encounter; Y93.9 Activity, unspecified; Y92.89 Other specified places as the place of occurrence of the external cause
CPT/HCPCS: 36415; 70450; 74177; 80053; 81003; 81015; 83605; 83690; 83735; 84702; 85025; 86140; 87086; 96374; 96375; 99283; A9270-GY; J2270; Q9967

== ENCOUNTER 2016-11-09 08:17 | Emergency (ER) | payer MEDICAID, OTHER ==
[2016-11-09] MEDS ORDERED: LORazepam INJ* 2 MG/ML 1 ML VIAL IV PUSH ONE ×2 (08:23→11:04)
[2016-11-09] MEDS ORDERED: NS 0.9% 1000 ML* 1,000 ML IV ONE (08:24)
[2016-11-09] MEDS ORDERED: Ibuprofen TAB* 600 MG PO ONE (09:02)
[2016-11-09] MEDS ORDERED: HYDROmorphone* 1 MG/ML 1 ML SYR IV SLOW PU ONE (09:58)
[2016-11-09 10:12] LABS: Hematocrit 34 % (35-47); Hemoglobin 11.4 g/dl (12.0-16.0); Mean Corpuscular HGB Conc 34 g/dl (31-36); Mean Corpuscular Hemoglobin 30 pg (27-31); Mean Corpuscular Volume 88 fL (80-97); Red Blood Count 3.84 10^6/ul (4.0-5.4); White Blood Count 7.9 10^3/ul (3.5-10.8)
[2016-11-09 10:13] LABS: Mean Platelet Volume 9 um3 (7.4-10.4); Red Cell Distribution Width 14 % (10.5-15)
[2016-11-09 10:34] LABS: Anion Gap 7 mmol/L (2-11); CO2 Carbon Dioxide 24 mmol/L (22-32); Chloride 105 mmol/L (101-111); Potassium 3.6 mmol/L (3.5-5.0); Sodium 136 mmol/L (133-145)
[2016-11-09 10:35] LABS: ALT 7 U/L (7-52); AST 11 U/L (13-39); Albumin 3.6 g/dL (3.2-5.2); Alkaline Phosphatase 36 U/L (34-104); BUN/Creatinine Ratio 19.1 (8-20); Blood Urea Nitrogen 13 mg/dL (6-24); Calcium 8.9 mg/dL (8.6-10.3); EGFR African American 140.5 (>60); EGFR Non-African American 109.2 (>60); Globulin 2.3 g/dL (2-4); Glucose 90 mg/dL (70-100); Magnesium 1.9 mg/dL (1.9-2.7); Total Protein 5.9 g/dL (6.4-8.9)
--- NOTE | 2016-11-09 10:52 | RAD ---
Indication: Seizure activity, head injury. CT of the brain was performed without IV contrast. Comparison is made with previous exam. Ventricular structures are midline. No midline shift is noted. The extra-axial spaces are unremarkable. There is no evidence of intracranial mass or hemorrhage. No other high or low density lesions are identified. Mastoid air cells and paranasal sinuses are otherwise unremarkable. IMPRESSION: No intracranial mass or hemorrhage is identified.
--- NOTE | 2016-11-09 10:57 | RAD ---
INDICATION: Trauma, seizure activity. COMPARISON: Comparison is made with a prior CT of the cervical spine from December 12, 2005. TECHNIQUE: Contiguous axial sections were obtained from the skull base through the C7 vertebra. Images were reconstructed in the sagittal and coronal planes. FINDINGS: There is straightening of the cervical spine with loss of the normal cervical lordosis. No prevertebral soft tissue swelling or fracture is seen. There is an area of ossification in the soft tissues posterior to the C2 vertebra on the right side which is present on the prior study. There is no evidence for spinal canal narrowing. The intervertebral disc spaces appear maintained. This film is made of a tiny nodule within the right thyroid lobe measuring 3 mm in size. IMPRESSION: STRAIGHTENING OF THE CERVICAL SPINE, NO EVIDENCE FOR FRACTURE OR SUBLUXATION.
[2016-11-09 11:26] LABS: Alcohol < 10 mg/dL (<10)
--- NOTE | 2016-11-09 11:46 | PN ---
Progress Note - Progress Note Note: 11 simple interrupted sutures placed by oh for Dr Cross, in right anterior inner forearm without complication. Well-approximated and closed nicely. Area was irrigated with 100cc of normal saline and cleaned with Betadine. 1% lidocaine with Epi was used as local anesthetic. 4-0 nylon suture material used. Area was cleaned and dressed after suturing was complete.
--- NOTE | 2016-11-09 12:54 | RAD ---
Indication: Fall, back injury. 2 views of the thoracic spine demonstrates no fracture. No other bone or joint abnormality is noted. Disc spaces are well-preserved. Pedicles appear intact. IMPRESSION: No fracture of the thoracic spine is noted.
--- NOTE | 2016-11-09 12:54 | RAD ---
Indication: Back pain. 2 views of the lumbar spine reviewed. The vertebral bodies appear normal in height. Normal bone marrow signal is noted. Disc spaces all well-preserved. Pedicles appear intact. IMPRESSION: No fracture of the lumbar spine is noted.
--- NOTE | 2016-11-09 12:55 | RAD ---
Indication: Right forearm injury. 2 views of the right forearm demonstrates no fracture. No other bone or joint abnormality is identified. IMPRESSION: No fracture of the right forearm is noted.
[2016-11-09 14:08] VITALS: BP 116/64
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
--- NOTE | 2016-11-11 17:03 | EEG ---
ELECTROENCEPHALOGRAPHY: DATE OF STUDY: 11/09/16 LOCATION: The patient was an inpatient in the emergency department. The recording lasted 51 minutes. ORDERING PHYSICIAN: Dr. Cross. CLINICAL PROBLEM: Roma Leavitt is a 21-year-old woman with a history of depression and anxiety as well as a reported history of epilepsy since the age of 12. She presented to the emergency department this morning after having experienced at least 10 seizures between being at home, transport to the emergency department, and in the emergency department. She had received a total of 10 mg of Versed in the ambulance and 2 mg of Ativan and was being infused with a gram of Keppra at the time of this EEG. One of her episodes was witnessed which consisted of eyes rolling upward and fluttering and arching of her neck backward and irregular whole body shaking with irregular vocalizations and respirations lasting approximately 30 seconds. After this event, she was immediately back to normal. This event occurred prior to the EEG recording. EEG is requested to evaluate for epileptiform abnormalities. MEDICATIONS: 1. Depakote. 2. Keppra 1 g IV. 3. Ativan 2 mg prior to the recording. 4. Versed 10 mg prior to the recording. 5. Cymbalta. REPORT: The waking background showed appropriate organization with clearly defined anterior to posterior voltage and frequency gradients. There was excessive beta activity noted diffusely throughout the recording related to benzo-diazepines recently administered. As a result, a posterior dominant rhythm was not readily visualized. Anteriorly, there was an expected pattern of low voltage, irregular, mixed faster frequencies. Photic stimulation was performed and the response was unremarkable. The patient reported that she was seeing her typical rainbow aura throughout the recording. This did not progress into a typical shaking spell. There was no EEG correlate to these symptoms. Throughout the recording, there were no epileptiform discharges, focal features , paroxysmal features, or significant interhemispheric asymmetries. In addition , there was no significant slowing noted of the background. CLINICAL IMPRESSION: This is an essentially normal waking EEG. There was excessive beta activity related to medication effect. The patient reported a typical aura of seeing rainbow in her central vision throughout the EEG which did not have an EEG correlate. However, she did not have a typical shaking spell during this EEG. [id number]/[facility] #: [id number] [facility]
== END 2016-11-09 14:07 | disposition home or self-care (01) ==
LOC: ED 08:17
DX: G40.909 Epilepsy, unspecified, not intractable, without status epilepticus (principal); F41.9 Anxiety disorder, unspecified; F32.9 Major depressive disorder, single episode, unspecified; R73.03 Prediabetes; Z88.5 Allergy status to narcotic agent
CPT/HCPCS: 36415; 70450; 72070; 72100; 72125; 80053; 80320; 83605; 83735; 85025; 85610; 85730; 95812; 96374; 96375; 96376; 99282; A9270-GY; G0480; J1170; J2060

== ENCOUNTER 2016-11-10 14:05 | Emergency (ER) | payer OTHER ==
[2016-11-10 14:26] VITALS: BP 110/76
--- NOTE | 2016-11-10 16:22 | UC ---
Upper Extremity HPI - HPI Summary HPI Summary: PT HERE C/O SEVERE PAIN RIGHT FOREARM STEMMING FROM A LACERATION SHE SUSTAINED YESTERDAY. PT WITH KNOWN SEIZURE D/O REPORTS SHE HAD SEIZURE ACTIVITY YESTERDAY AND FELL INTO A PARTIALLY BUILT TV STAND. A PROTRUDING NAIL LACERATED HER RIGHT FOREARM. WENT TO [facility] [place] AND HAD 11 SIMPLE INTERRUPTED SUTURES PLACED. PT HERE C/ O EXCRUCIATING PAIN DUE TO THIS INJURY. STATES IBUPROFEN NOT HELPFUL. REPORTS ALLERGY TO TORADOL, TRAMADOL AND VICODIN. PT IS IN TEARS AND EXTREMELY DISTRESSED OUT OF PROPORTION TO EXAM FINDINGS. - History of Current Complaint Chief Complaint: UCWounds Stated Complaint: ARM PAIN Time Seen by Provider: 11/10/16 15:07 Hx Obtained From: Patient Hx Last Menstrual Period: 11/04/16 Onset/Duration: Sudden Onset, Lasting Days, Still Present Severity Initially: Moderate Severity Currently: Moderate Pain Intensity: 8 Pain Scale Used: 0-10 Numeric Location Of Pain: Is Discrete @ - RIGHT FOREARM Character: Sharp Aggravating Factor(s): Nothing Alleviating Factor(s): Nothing - Allergies/Home Medications Allergies/Adverse Reactions: Allergies Allergy/AdvReac Type Severity Reaction Status Date / Time Shellfish Allergy Allergy Unknown Verified 11/10/16 14:26 Reaction Details Ketorolac Tromethamine AdvReac Intermediate has Verified 11/10/16 14:26 [From Toradol] seizures Tramadol AdvReac Intermediate See Comment Verified 11/10/16 14:26 Hydrocodone [From Vicodin] AdvReac Mild Vomiting Verified 11/10/16 14:26 PMH/Surg Hx/FS Hx/Imm Hx Endocrine History Of: Denies: Diabetes, Thyroid Disease Cardiovascular History Of: Denies: Cardiac Disorders, Hypertension, Pacemaker/ICD Respiratory History Of: Denies: COPD, Asthma, Pneumonia GI/ History Of: Denies: Ulcer, Renal Disease Neurological History Of: Reports: Seizures - Pt has had history of sezures when Hypoglycemic Psychological History Of: Reports: Anxiety, Depression, Schizophrenia - Surgical History Surgical History: None - Family History Known Family History: Positive: Other - father -schizophrenia Negative: Cardiac Disease Family History: Biological father - Schizophrenia - Social History Alcohol Use: None Substance Use Type: Sedatives Substance Use Comment - Amount & Last Used: cymbalta 30mg , adderal 20mg qd. Smoking Status (MU): Former Smoker Type: Cigarettes Length of Time of Smoking/Using Tobacco: 3 years Have You Smoked in the Last Year: No Household Exposure Type: Cigarettes - Immunization History Most Recent Influenza Vaccination: March, Most Recent Tetanus Shot: UTD Most Recent Pneumonia Vaccination: n/a Review of Systems Constitutional: Negative Skin: Other - LACERATION RIGHT FOREARM WITH SUTURES Respiratory: Negative Cardiovascular: Negative Gastrointestinal: Negative Musculoskeletal: Other: - RIGHT FOREARM PAIN All Other Systems Reviewed And Are Negative: Yes Physical Exam Triage Information Reviewed: Yes Appearance: Well-Nourished, Pain Distress - PT IS TEARFUL, TREMULOUS AND C/O SEVERE RIGHT ARM PAIN. PT NOTED TO BE USING ARM WELL. NOT FAVORING IT. Vital Signs: Initial Vital Signs Temp 99.1 F 11/10/16 14:15 Pulse 100 11/10/16 14:15 Resp 20 11/10/16 14:15 BP 110/76 11/10/16 14:15 Pulse Ox 99 11/10/16 14:15 Vital Signs Reviewed: Yes Eyes: Positive: Conjunctiva Clear ENT: Positive: Hearing grossly normal Respiratory Exam: Normal Cardiovascular: Positive: Tachycardia Abdomen Description: Positive: Soft Musculoskeletal: Positive: No Edema Neurological: Positive: Alert Psychological: Positive: Age Appropriate Behavior, Inconsolable Skin: Positive: Other - HEALING LINEAR LACERATION RIGHT FOREARM WITH [address] MILD SURROUNDING ECCHYMOSIS. NO DRAINAGE OR ERYTHEMA. Upper Extremity Course/Dx - Course Course Of Treatment: PT REPORT OF PAIN IS OUT OF PROPORTION TO EXAM FINDINGS. PT ASKING FOR PAIN MEDS. NOTED TO HAVE ALLERGIES TO TORADOL, TRAMADOL AND VICODIN. ALSO - NARCOTICS KNOWN TO LOWER SEIZURE THRESHOLD SO WOULD NOT RX ANYWAY DUE TO PT HAVING RECURRENT SEIZURES. I HAD SOME CONCERNS ABOUT HER SUPPORT NETWORK AT HOME. SHE STATES THAT HER GRANDFATHER AND DO NOT APPROVE OF HER SEEKING MEDICAL ATTENTION AT THE ER OR AND THAT THEY ALSO DISAPPROVE OF HER TAKING IBUPROFEN OR TYLENOL. WHEN ASKED IF SHE FELT SAFE AT HOME SHE SAID SHE DID. I OFFERED HER TRANSFER TO ER FOR PAIN MANAGEMENT AND TO SEEK TOOLROOM MACHINIST/SOCIAL WORK ASSISTANCE. SHE DECLINED. - Differential Dx/Diagnosis Provider Diagnoses: PAIN DUE TO LACERATION RIGHT FOREARM Discharge - Discharge Plan Condition: Stable Disposition: HOME Referrals: Beth Perez MD [Primary Care Provider] - 3 Days Maria Miguel MD [Medical Doctor] - 1 Week Additional Instructions: THE PAIN STEMMING FROM YOUR ARM LACERATION SHOULD BE MANAGED WITH IBUPROFEN AND TYLENOL. PLEASE TAKE THESE MEDICATIONS NEEDED ACCORDING TO THE DOSING INDICATED BELOW. APPLY THIN LAYER ANTIBIOTIC OINTMENT UNDER BANDAGE FOR FIRST 2-3 DAYS ONLY. CHANGE BANDAGE DAILY AND NEEDED IF IT BECOMES SOILED OR WET. SEEK FOLLOW-UP IF YOU DEVELOP SPREADING REDNESS OF THE SKIN, PURULENT DRAINAGE, FEVER, INCREASED PAIN OR ANY OTHER CONCERNING SYMPTOMS. GET THE STITCHES OUT AFTER 10 DAYS INSTRUCTED YESTERDAY.
== END 2016-11-10 16:28 | disposition home or self-care (01) ==
LOC: UCEAST 14:05
DX: M79.631 Pain in right forearm (principal); S51.811A Laceration without foreign body of right forearm, initial encounter; R56.9 Unspecified convulsions; F41.9 Anxiety disorder, unspecified; F33.9 Major depressive disorder, recurrent, unspecified; F20.9 Schizophrenia, unspecified; Z88.5 Allergy status to narcotic agent; Z91.013 Allergy to seafood; Z87.891 Personal history of nicotine dependence; W18.39XA Other fall on same level, initial encounter
CPT/HCPCS: 99211; G0463

== ENCOUNTER 2016-11-15 09:02 | Emergency (ER) | payer OTHER ==
[2016-11-15 09:49] LABS: Hematocrit 36 % (35-47); Hemoglobin 11.6 g/dl (12.0-16.0); Mean Corpuscular HGB Conc 32 g/dl (31-36); Mean Corpuscular Hemoglobin 29 pg (27-31); Mean Corpuscular Volume 90 fL (80-97); Mean Platelet Volume 9 um3 (7.4-10.4); Red Cell Distribution Width 14 % (10.5-15); White Blood Count 6.8 10^3/ul (3.5-10.8)
[2016-11-15 10:14] LABS: ALT 9 U/L (7-52); AST 15 U/L (13-39); Albumin 3.6 g/dL (3.2-5.2); Alkaline Phosphatase 39 U/L (34-104); Anion Gap 6 mmol/L (2-11); BUN/Creatinine Ratio 10.1 (8-20); Blood Urea Nitrogen 7 mg/dL (6-24); CO2 Carbon Dioxide 30 mmol/L (22-32); Chloride 103 mmol/L (101-111); EGFR African American 138.1 (>60); EGFR Non-African American 107.4 (>60); Globulin 2.4 g/dL (2-4); Glucose 138 mg/dL (70-100); Magnesium 1.7 mg/dL (1.9-2.7); Potassium 3.4 mmol/L (3.5-5.0); Sodium 139 mmol/L (133-145)
[2016-11-15 10:19] LABS: Valproic Acid < 13.0 mcg/mL (50-100)
[2016-11-15 10:50] VITALS: BP 98/54
--- NOTE | 2016-11-15 12:36 | ED ---
Curt Ronquillo Billy, scribed for Julián Barton MD on 11/15/16 at 0944 . Neurological HPI - HPI Summary HPI Summary: Patient is a 21 year-old female coming to [facility] this morning for evaluation of multiple witnessed seizures over the night. The patient states that her fiancee witnessed 4 seizures; the patient herself says that she does not remember these episodes very well. However, she reports seeing colors prior to her seizures. She has a headache at this time. Patient takes Depakote 60mg BID regularly, and states that she has not missed doses. - History of Current Complaint Chief Complaint: EDSeizure Stated Complaint: MULTIPLE SEZUIRES Time Seen by Provider: 11/15/16 09:22 Hx Obtained From: Patient Hx Last Menstrual Period: 11/04/16 Onset/Duration: Sudden Onset Timing: Intermittent Episodes Lasting: Seizure Severity: Moderate Number of Seizures: 4 Neurological Deficit Location: Generalized Pain Intensity: 2 Pain Scale Used: 0-10 Numeric Seizure Character: Generalized Aggravating: Unknown Alleviating: Unknown Associated Signs and Symptoms: Positive: Headache - Additional Pertinent History Primary Care Physician: MARIBEL - Allergy/Home Medications Allergies/Adverse Reactions: Allergies Allergy/AdvReac Type Severity Reaction Status Date / Time Shellfish Allergy Allergy Unknown Verified 11/15/16 09:32 Reaction Details Ketorolac Tromethamine AdvReac Intermediate has Verified 11/15/16 09:32 [From Toradol] seizures Tramadol AdvReac Intermediate See Comment Verified 11/15/16 09:32 Hydrocodone [From Vicodin] AdvReac Mild Vomiting Verified 11/15/16 09:32 PMH/Surg Hx/FS Hx/Imm Hx Endocrine/Hematology History: Denies: Hx Diabetes, Hx Thyroid Disease, Hx Anemia, Hx Unexplained Bleeding Cardiovascular History: Denies: Hx Cardiac Arrest, Hx Embolism, Hx Hypertension, Hx Pacemaker/ICD Respiratory History: Denies: Hx Asthma, Hx Chronic Obstructive Pulmonary Disease (COPD), Hx Pneumonia GI History: Denies: Hx Ulcer History: Denies: Hx Renal Disease Sensory History: Denies: Hx Contacts or Glasses, Hx Hearing Aid, Hx Hearing Problem Opthamlomology History: Denies: Hx Contacts or Glasses Neurological History: Reports: Hx Seizures - Pt has had history of sezures when Hypoglycemic Psychiatric History: Reports: Hx Anxiety, Hx Depression, Hx Panic Disorder, Hx Inpatient Treatment, Hx Schizophrenia, Other Psychiatric Issues/Disorders - PANIC DISORDER Denies: Hx Eating Disorder, Hx of Violent Episodes Against Others - Immunization History Date of Tetanus Vaccine: less than a year ago Infectious Disease History: No Infectious Disease History: Denies: Hx Clostridium Difficile, Hx Hepatitis, Hx Human Immunodeficiency Virus (HIV), Hx of Known/Suspected MRSA, Hx Shingles, Hx Tuberculosis, Hx Known/ Suspected VRE, Hx Known/Suspected VRSA, History Other Infectious Disease, Traveled Outside the [place] in Last 30 Days - Family History Known Family History: Negative: Cardiac Disease Family History: Biological father - Schizophrenia - Social History Alcohol Use: None Hx Substance Use: Yes Substance Use Type: Reports: Prescribed Substance Use Comment - Amount & Last Used: cymbalta 30mg , adderal 20mg qd. Hx Tobacco Use: Yes Smoking Status (MU): Former Smoker Type: Cigarettes Length of Time of Smoking/Using Tobacco: 3 years Have You Smoked in the Last Year: No Review of Systems Negative: Fever Skin: Other - old laceration on right forearm Neurological: Other - seizures Positive: Headache All Other Systems Reviewed And Are Negative: Yes Physical Exam Triage Information Reviewed: Yes Vital Signs On Initial Exam: Initial Vitals Temp Pulse Resp BP Pulse Ox 98.6 F 98 15 88/55 100 11/15/16 09:03 11/15/16 09:03 11/15/16 09:03 11/15/16 09:03 11/15/16 09:03 Vital Signs Reviewed: Yes Appearance: Positive: Well-Appearing, No Pain Distress Skin: Positive: Warm, Skin Color Reflects Adequate Perfusion, Dry, Other - Clean wound on the right forearm with surrounding erythema. Head/Face: Positive: Normal Head/Face Inspection Eyes: Positive: Normal ENT: Positive: Normal ENT inspection Neck: Positive: Supple, Nontender Respiratory/Lung Sounds: Positive: Clear to Auscultation, Breath Sounds Present Cardiovascular: Positive: RRR Abdomen Description: Positive: Nontender, Soft Bowel Sounds: Positive: Present Musculoskeletal: Positive: Normal Neurological: Positive: Normal, Sensory/Motor Intact, Alert, Oriented to Person Place, Time Psychiatric: Positive: Affect/Mood Appropriate - Agustín Coma Scale Coma Scale Total: 15 Diagnostics - Vital Signs Vital Signs Temp Pulse Resp BP Pulse Ox 11/15/16 09:32 97 11/15/16 09:22 78 94 11/15/16 09:20 101/59 11/15/16 09:17 98.6 F 90 14 101/59 95 11/15/16 09:03 98.6 F 98 15 88/55 100 - Laboratory Lab Results: Lab Results 11/15/16 11/15/16 11/15/16 Range/Units 09:30 09:30 09:30 WBC 6.8 (3.5-10.8) 10^3/ul RBC 4.00 (4.0-5.4) 10^6/ul Hgb 11.6 L (12.0-16.0) g/dl Hct 36 (35-47) % MCV 90 (80-97) fL MCH 29 (27-31) pg MCHC 32 (31-36) g/dl RDW 14 (10.5-15) % Plt Count 255 (150-450) 10^3/ul MPV 9 (7.4-10.4) um3 Neut % (Auto) 49.4 (38-83) % Lymph % (Auto) 28.2 (25-47) % [place] % (Auto) 7.8 (1-9) % Eos % (Auto) 13.8 H (0-6) % Baso % (Auto) 0.8 (0-2) % Absolute Neuts (auto) 3.3 (1.5-7.7) 10^3/ul Absolute Lymphs (auto) 1.9 (1.0-4.8) 10^3/ul Absolute Monos (auto) 0.5 (0-0.8) 10^3/ul Absolute Eos (auto) 0.9 H (0-0.6) 10^3/ul Absolute Basos (auto) 0.1 (0-0.2) 10^3/ul Absolute Nucleated RBC 0.01 10^3/ul Nucleated RBC % 0.1 INR (Anticoag Therapy) 0.90 (0.89-1.11) Sodium 139 (133-145) mmol/L Potassium 3.4 L (3.5-5.0) mmol/L Chloride 103 (101-111) mmol/L Carbon Dioxide 30 (22-32) mmol/L Anion Gap 6 (2-11) mmol/L BUN 7 (6-24) mg/dL Creatinine 0.69 (0.51-0.95) mg/dL Est GFR ( Amer) 138.1 (>60) Est GFR (Non-Af Amer) 107.4 (>60) BUN/Creatinine Ratio 10.1 (8-20) Glucose 138 H (70-100) mg/dL Lactic Acid (0.5-2.0) mmol/L Calcium 9.0 (8.6-10.3) mg/dL Magnesium 1.7 L (1.9-2.7) mg/dL Total Bilirubin 0.30 (0.2-1.0) mg/dL AST 15 (13-39) U/L ALT 9 (7-52) U/L Alkaline Phosphatase 39 (34-104) U/L Total Protein 6.0 L (6.4-8.9) g/dL Albumin 3.6 (3.2-5.2) g/dL Globulin 2.4 (2-4) g/dL Albumin/Globulin Ratio 1.5 (1-3) Valproic Acid < 13.0 L (50-100) mcg/mL 11/15/16 Range/Units 09:30 WBC (3.5-10.8) 10^3/ul RBC (4.0-5.4) 10^6/ul Hgb (12.0-16.0) g/dl Hct (35-47) % MCV (80-97) fL MCH (27-31) pg MCHC (31-36) g/dl RDW (10.5-15) % Plt Count (150-450) 10^3/ul MPV (7.4-10.4) um3 Neut % (Auto) (38-83) % Lymph % (Auto) (25-47) % [place] % (Auto) (1-9) % Eos % (Auto) (0-6) % Baso % (Auto) (0-2) % Absolute Neuts (auto) (1.5-7.7) 10^3/ul Absolute Lymphs (auto) (1.0-4.8) 10^3/ul Absolute Monos (auto) (0-0.8) 10^3/ul Absolute Eos (auto) (0-0.6) 10^3/ul Absolute Basos (auto) (0-0.2) 10^3/ul Absolute Nucleated RBC 10^3/ul Nucleated RBC % INR (Anticoag Therapy) (0.89-1.11) Sodium (133-145) mmol/L Potassium (3.5-5.0) mmol/L Chloride (101-111) mmol/L Carbon Dioxide (22-32) mmol/L Anion Gap (2-11) mmol/L BUN (6-24) mg/dL Creatinine (0.51-0.95) mg/dL Est GFR ( Amer) (>60) Est GFR (Non-Af Amer) (>60) BUN/Creatinine Ratio (8-20) Glucose (70-100) mg/dL Lactic Acid 2.5 H* (0.5-2.0) mmol/L Calcium (8.6-10.3) mg/dL Magnesium (1.9-2.7) mg/dL Total Bilirubin (0.2-1.0) mg/dL AST (13-39) U/L ALT (7-52) U/L Alkaline Phosphatase (34-104) U/L Total Protein (6.4-8.9) g/dL Albumin (3.2-5.2) g/dL Globulin (2-4) g/dL Albumin/Globulin Ratio (1-3) Valproic Acid (50-100) mcg/mL Result Diagrams: 11/15/16 09:30 11/15/16 09:30 Lab Statement: Any lab studies that have been ordered have been reviewed, and results considered in the medical decision making process. - EKG 0917 EKG Interpretation: NSR 87 bpm, no STEMI Re-Evaluation - Re-Evaluation First Eval Re-Evaluation Time: 09:46 Comment: Patient is actively seizing. Second Eval Re-Evaluation Time: 10:40 Comment: Patient states that she wishes to be discharged home. Course/Dx - Course Course Of Treatment: Ms. Leavitt announced that she wanted to go home shortly after arrival. Her lactic acid was a bit elevated and her depakote level low and I tried to encourage her to stay. At that point Dr. Zapien had been paged but the paqtient was unwilling to wait. Dr. Zapien called back shortly thereafter and promised to F/u Roma up in the office. - Diagnoses Provider Diagnoses: Seizure - Physician Notifications Discussed Care of Patient With: Dr. Zapien (neurology) at 1100 Discharge - Discharge Plan Condition: Stable Disposition: HOME Patient Education Materials: Recurrent Seizures in Adults (ED) Referrals: Beth Perez MD [Primary Care Provider] - Carol Zapien MD [Medical Doctor] - As Soon As Possible Additional Instructions: TAKE YOUR MEDICATIONS PRESCRIBED. The documentation as recorded by the Curt long Billy accurately reflects the service I personally performed and the decisions made by me, Juláin Barton MD.
== END 2016-11-15 10:49 | disposition home or self-care (01) ==
LOC: ED 09:02
DX: R51 Headache (principal); Z87.891 Personal history of nicotine dependence; R56.9 Unspecified convulsions
CPT/HCPCS: 36415; 80053; 80164; 83605; 83735; 85025; 85610; 93005; 99282

== ENCOUNTER 2016-11-20 14:03 | Emergency (ER) | payer MEDICAID | END 2016-11-20 18:22 | disposition left against medical advice (07) | LOC: UCEAST 14:03 | DX: S51.819D Laceration without foreign body of unspecified forearm, subsequent encounter (principal); X58.XXXD Exposure to other specified factors, subsequent encounter; Y92.9 Unspecified place or not applicable; Z53.21 Procedure and treatment not carried out due to patient leaving prior to being seen by health care provider ==

== ENCOUNTER → 2016-12-05 22:20 | Emergency (ER) | payer SELFPAY ==
[2016-12-05 22:25] VITALS: BP 116/78
== END | disposition left against medical advice (07) ==
LOC: ED 22:20
DX: R11.10 Vomiting, unspecified (principal); Z53.21 Procedure and treatment not carried out due to patient leaving prior to being seen by health care provider

== ENCOUNTER 2017-02-26 20:33 | Emergency (ER) | payer OTHER ==
[2017-02-26 20:40] VITALS: BP 110/75
== END 2017-02-26 22:57 | disposition left against medical advice (07) ==
LOC: ED 20:33
DX: R10.9 Unspecified abdominal pain (principal); Z53.21 Procedure and treatment not carried out due to patient leaving prior to being seen by health care provider

== ENCOUNTER 2017-04-29 14:51 | Emergency (ER) | payer SELFPAY ==
[2017-04-29 14:58] VITALS: BP 116/50
--- NOTE | 2017-04-29 15:19 | UC ---
Ear Complaint HPI - HPI Summary HPI Summary: Patient presents with complaints of right ear pain that began on 04/06/17 and then the pain went away. She states it came back several day ago, and it is worse then when she first had pain. She states that she now has right ear pain, outside the ear, canal and right side of her neck. Denies any injury or trauma, decreased hearing, canal drainage, jaw or neck pain. Reports no difficulty swallowing, breathing or speaking. - History of Current Complaint Chief Complaint: UCEar Stated Complaint: R EAR INFECTION Time Seen by Provider: 04/29/17 15:04 Hx Obtained From: Patient Hx Last Menstrual Period: 04/27/17 ?: No Onset/Duration: Gradual Onset, Lasting Days Severity Initially: Moderate Severity Currently: Moderate Aggravating Factors: Nothing - touch to outside ear., Other Alleviating Factors: Nothing Associated Signs/Symptoms: Positive: Swelling @ - right outter ear - Allergies/Home Medications Allergies/Adverse Reactions: Allergies Allergy/AdvReac Type Severity Reaction Status Date / Time Shellfish Allergy Allergy Unknown Verified 04/29/17 14:58 Reaction Details Ketorolac Tromethamine AdvReac Intermediate has Verified 04/29/17 14:58 [From Toradol] seizures Tramadol AdvReac Intermediate See Comment Verified 04/29/17 14:58 Hydrocodone [From Vicodin] AdvReac Mild Vomiting Verified 04/29/17 14:58 Home Medications: Home Medications Etonogestrel [Nexplanon] 68 mg IMPLANT 04/29/17 [History] PMH/Surg Hx/FS Hx/Imm Hx Previously Healthy: Yes - Surgical History Surgical History: None - Family History Known Family History: Positive: Other - father -schizophrenia Negative: Cardiac Disease Family History: Biological father - Schizophrenia - Social History Occupation: Employed Full-time Lives: Alone Alcohol Use: Occasionally Substance Use Type: None Substance Use Comment - Amount & Last Used: cymbalta 30mg , adderal 20mg qd. Smoking Status (MU): Former Smoker Type: Cigarettes Length of Time of Smoking/Using Tobacco: 3 years Have You Smoked in the Last Year: No Household Exposure Type: Cigarettes - Immunization History Most Recent Influenza Vaccination: March, Most Recent Tetanus Shot: UTD Most Recent Pneumonia Vaccination: n/a Review of Systems Constitutional: Negative Skin: Negative Eyes: Negative ENT: Ear Ache Respiratory: Negative Cardiovascular: Negative Gastrointestinal: Negative Genitourinary: Negative Motor: Negative Neurovascular: Negative Musculoskeletal: Negative Neurological: Negative Psychological: Negative All Other Systems Reviewed And Are Negative: Yes Physical Exam Triage Information Reviewed: Yes Appearance: Well-Appearing Vital Signs: Initial Vital Signs Temp 99.0 F 04/29/17 14:54 Pulse 95 04/29/17 14:54 Resp 18 04/29/17 14:54 BP 116/50 04/29/17 14:54 Pulse Ox 100 04/29/17 14:54 Eye Exam: Normal ENT: Positive: TM bulging, TM dull, TM red, Other: - postive tragus pain, canal edematous, no drainage noted, no perforation seen. Neck exam: Normal Neck: Positive: 1 Respiratory Exam: Normal Cardiovascular Exam: Normal Abdominal Exam: Normal Musculoskeletal Exam: Normal Neurological Exam: Normal Psychological Exam: Normal Skin Exam: Normal Ear Complaint Course/Dx - Course Course Of Treatment: Patient presented with clinical findings consistent with otitis externa, and has associated lymphadenopathy. She was therefore treated with topical and with oral antibiotics. She was also encouraged to take tylenol and/or advil for pain. I discussed follow up with [facility] in two days if her symptoms persist. She was discharged home in stable condition and normal vital signs. - Differential Dx/Diagnosis Differential Diagnosis/HQI/PQRI: Other - otitis externa lymphadenopathy Provider Diagnoses: otitis externa. lymphadenoapthy Discharge - Discharge Plan Condition: Stable Disposition: HOME Prescriptions: Amoxicillin/Clavulanate TAB* [Augmentin TAB 500 mg*] 500 mg PO BID #20 tab Neomyc/Polym/HC 1% OTIC SUSP* [Cortisporin Otic Susp 1%*] 4 drop RIGHT EAR QID # 1 btl Patient Education Materials: Otitis Externa (ED) Referrals: No Primary Care Phys,NOPCP [Primary Care Provider] - El Howard MD [Medical Doctor] - Additional Instructions: Follow up with Dr. Howard within two days.
== END 2017-04-29 15:22 | disposition home or self-care (01) ==
LOC: UCEAST 14:51
DX: H60.90 Unspecified otitis externa, unspecified ear (principal); Z87.891 Personal history of nicotine dependence; R59.1 Generalized enlarged lymph nodes
CPT/HCPCS: 99212; G0463

== ENCOUNTER 2017-06-07 19:32 | Emergency (ER) | payer OTHER | END 2017-06-07 20:06 | disposition left against medical advice (07) | LOC: UCEAST 19:32 | DX: R09.89 Other specified symptoms and signs involving the circulatory and respiratory systems (principal); Z53.21 Procedure and treatment not carried out due to patient leaving prior to being seen by health care provider ==

== ENCOUNTER 2017-06-08 19:56 | Emergency (ER) | payer OTHER ==
[2017-06-08] MEDS ORDERED: Albuterol 2.5 MG/3 ML NEB.SOL* (0.083%) INH ONE (21:22)
[2017-06-08 21:23] LABS: Hematocrit 40 % (35-47); Mean Corpuscular HGB Conc 33 g/dl (31-36); Mean Corpuscular Hemoglobin 28 pg (27-31); Mean Corpuscular Volume 86 fL (80-97); Mean Platelet Volume 8 um3 (7.4-10.4); Red Blood Count 4.62 10^6/ul (4.0-5.4); Red Cell Distribution Width 14 % (10.5-15); White Blood Count 9.6 10^3/ul (3.5-10.8)
[2017-06-08 21:34] LABS: Urine Bacteria Absent (Absent); Urine Bilirubin Negative (Negative); Urine Glucose Negative (Negative); Urine Nitrite Negative (Negative)
[2017-06-08 21:35] LABS: ALT 8 U/L (7-52); AST 13 U/L (13-39); Alkaline Phosphatase 58 U/L (34-104); Anion Gap 6 mmol/L (2-11); BUN/Creatinine Ratio 9.8 (8-20); Blood Urea Nitrogen 6 mg/dL (6-24); CO2 Carbon Dioxide 26 mmol/L (22-32); Calcium 10.1 mg/dL (8.6-10.3); Chloride 102 mmol/L (101-111); EGFR African American 157.7 (>60); EGFR Non-African American 122.6 (>60); Globulin 3.1 g/dL (2-4); Glucose 91 mg/dL (70-100); Potassium 3.7 mmol/L (3.5-5.0); Sodium 134 mmol/L (133-145); Total Protein 7.1 g/dL (6.4-8.9)
[2017-06-08 21:36] LABS: Benzodiazepine Urine Screen None Detected (None Detect)
[2017-06-08 21:57] LABS: Acetaminophen < 15 mcg/mL; Alcohol < 10 mg/dL (<10); Salicylate < 2.50 mg/dL (<30)
[2017-06-08 22:13] LABS: TSH (Thyroid Stimulating Horm) 0.57 mcIU/mL (0.34-5.60)
[2017-06-08] MEDS ORDERED: Cephalexin CAP* 500 MG PO ONE (23:06)
--- NOTE | 2017-06-08 23:07 | ED ---
Yehuda Ronquillo Gabriel, scribed for Jean-Paul Corss MD on 06/08/17 at 2102 . Psychiatric Complaint - HPI Summary HPI Summary: This patient is a 22 year old F brought in by police to [facility] with a chief complaint of SI since earlier today. Pt states her and her boyfriend were arguing when she threatened to kill herself, she claims she did not mean it and only said it to get her boyfriend to care about her. She has previously been admitted for cutting herself and has self-inflicted lacerations on her arms from three weeks ago. She also reports believing she was and thinks had a miscarriage today. - History Of Current Complaint Chief Complaint: EDMentalHealth Time Seen by Provider: 06/08/17 20:42 Hx Obtained From: Patient Hx Last Menstrual Period: 05/26/17 Onset/Duration: Still Present Timing: Constant Related History: Positive For: Prior Psychiatric Issues - has previously cut herself Has Suicidal: Reports: Thoughts - Allergies/Home Medications Allergies/Adverse Reactions: Allergies Allergy/AdvReac Type Severity Reaction Status Date / Time Shellfish Allergy Allergy Unknown Verified 06/08/17 20:10 Reaction Details Ketorolac Tromethamine AdvReac Intermediate has Verified 06/08/17 20:10 [From Toradol] seizures Tramadol AdvReac Intermediate See Comment Verified 06/08/17 20:10 Hydrocodone [From Vicodin] AdvReac Mild Vomiting Verified 06/08/17 20:10 PMH/Surg Hx/FS Hx/Imm Hx Previously Healthy: No Endocrine/Hematology History: Denies: Hx Diabetes, Hx Thyroid Disease, Hx Anemia, Hx Unexplained Bleeding Cardiovascular History: Denies: Hx Cardiac Arrest, Hx Embolism, Hx Hypertension, Hx Pacemaker/ICD Respiratory History: Reports: Hx Asthma - A CHILD, NOT NOW Denies: Hx Chronic Obstructive Pulmonary Disease (COPD), Hx Pneumonia GI History: Denies: Hx Ulcer History: Denies: Hx Renal Disease Sensory History: Denies: Hx Contacts or Glasses, Hx Hearing Aid, Hx Hearing Problem Opthamlomology History: Denies: Hx Contacts or Glasses Neurological History: Reports: Hx Seizures - Pt has had history of sezures when Hypoglycemic Psychiatric History: Reports: Hx Anxiety, Hx Depression, Hx Panic Disorder, Hx Inpatient Treatment, Hx Schizophrenia, Other Psychiatric Issues/Disorders - PANIC DISORDER Denies: Hx Eating Disorder, Hx of Violent Episodes Against Others - Immunization History Date of Tetanus Vaccine: utd Date of Influenza Vaccine: 2017 Infectious Disease History: No Infectious Disease History: Denies: Hx Clostridium Difficile, Hx Hepatitis, Hx Human Immunodeficiency Virus (HIV), Hx of Known/Suspected MRSA, Hx Shingles, Hx Tuberculosis, Hx Known/ Suspected VRE, Hx Known/Suspected VRSA, History Other Infectious Disease, Traveled Outside the [place] in Last 30 Days - Family History Known Family History: Positive: Cardiac Disease - Mother had an NM, Other - father -schizophrenia Negative: Diabetes Family History: Biological father - Schizophrenia - Social History Alcohol Use: Occasionally Hx Substance Use: Yes Substance Use Type: Reports: Other - Takes Benzodiazepine and "any pills she can get her hands on" Substance Use Comment - Amount & Last Used: cymbalta 30mg , adderal 20mg qd. Hx Tobacco Use: No Smoking Status (MU): Former Smoker Type: Cigarettes Length of Time of Smoking/Using Tobacco: 3 years Have You Smoked in the Last Year: No Review of Systems Negative: Slurred Speech Positive: Other - SI All Other Systems Reviewed And Are Negative: Yes Physical Exam Triage Information Reviewed: Yes Vital Signs On Initial Exam: Initial Vitals Temp Pulse Resp BP Pulse Ox 99.9 F 112 16 136/84 99 06/08/17 20:02 06/08/17 20:02 06/08/17 20:02 06/08/17 20:02 06/08/17 20:02 Vital Signs Reviewed: Yes Appearance: Positive: Well-Appearing, No Pain Distress Skin: Positive: Warm, Skin Color Reflects Adequate Perfusion Head/Face: Positive: Normal Head/Face Inspection Eyes: Positive: EOMI Neck: Positive: Nontender Respiratory/Lung Sounds: Positive: Clear to Auscultation, Breath Sounds Present Cardiovascular: Positive: RRR. Negative: Murmur Abdomen Description: Positive: Nontender Musculoskeletal: Positive: Strength/ROM Intact Neurological: Positive: Sensory/Motor Intact, Alert, Oriented to Person Place, Time, CN Intact II-III Psychiatric: Positive: Anxious - [place] Coma Scale Best Eye Response: 4 - Spontaneous Best Motor Response: 6 - Obeys Commands Best Verbal Response: 5 - Oriented Coma Scale Total: 15 Diagnostics - Vital Signs Vital Signs Temp Pulse Resp BP Pulse Ox 06/08/17 20:02 99.9 F 112 16 136/84 99 - Laboratory Lab Results: Lab Results 06/08/17 06/08/17 06/08/17 Range/Units 20:21 20:21 21:10 WBC (3.5-10.8) 10^3/ul RBC (4.0-5.4) 10^6/ul Hgb (12.0-16.0) g/dl Hct (35-47) % MCV (80-97) fL MCH (27-31) pg MCHC (31-36) g/dl RDW (10.5-15) % Plt Count (150-450) 10^3/ul MPV (7.4-10.4) um3 Neut % (Auto) (38-83) % Lymph % (Auto) (25-47) % [place] % (Auto) (1-9) % Eos % (Auto) (0-6) % Baso % (Auto) (0-2) % Absolute Neuts (auto) (1.5-7.7) 10^3/ul Absolute Lymphs (auto) (1.0-4.8) 10^3/ul Absolute Monos (auto) (0-0.8) 10^3/ul Absolute Eos (auto) (0-0.6) 10^3/ul Absolute Basos (auto) (0-0.2) 10^3/ul Absolute Nucleated RBC 10^3/ul Nucleated RBC % Sodium 134 (133-145) mmol/L Potassium 3.7 (3.5-5.0) mmol/L Chloride 102 (101-111) mmol/L Carbon Dioxide 26 (22-32) mmol/L Anion Gap 6 (2-11) mmol/L BUN 6 (6-24) mg/dL Creatinine 0.61 (0.51-0.95) mg/dL Est GFR ( Amer) 157.7 (>60) Est GFR (Non-Af Amer) 122.6 (>60) BUN/Creatinine Ratio 9.8 (8-20) Glucose 91 (70-100) mg/dL Calcium 10.1 (8.6-10.3) mg/dL Total Bilirubin 0.50 (0.2-1.0) mg/dL AST 13 (13-39) U/L ALT 8 (7-52) U/L Alkaline Phosphatase 58 (34-104) U/L Total Protein 7.1 (6.4-8.9) g/dL Albumin 4.0 (3.2-5.2) g/dL Globulin 3.1 (2-4) g/dL Albumin/Globulin Ratio 1.3 (1-3) TSH 0.57 (0.34-5.60) mcIU/mL Urine Color Yellow Urine Appearance Cloudy Urine pH 5.0 (5-9) Ur Specific Almond 1.019 (1.010-1.030) Urine Protein 1+(30 mg/dl) H (Negative) Urine Ketones Negative (Negative) Urine Blood 3+ H (Negative) Urine Nitrate Negative (Negative) Urine Bilirubin Negative (Negative) Urine Urobilinogen Negative (Negative) Ur Leukocyte Esterase Negative (Negative) Urine WBC (Auto) 3+(>20/hpf) H (Absent) Urine RBC (Auto) 3+(>10/hpf) H (Absent) Ur Squamous Epith Cells Present H (Absent) Urine Bacteria Absent (Absent) Urine Glucose Negative (Negative) Salicylates < 2.50 (<30) mg/dL Urine Opiates Screen Presumptive positive H (None Detect) Acetaminophen < 15 mcg/mL Ur Barbiturates Screen None detected (None Detect) Ur Phencyclidine Scrn None detected (None Detect) Ur Amphetamines Screen None detected (None Detect) U Benzodiazepines Scrn None detected (None Detect) Urine Cocaine Screen None detected (None Detect) U Cannabinoids Screen Presumptive positive H (None Detect) Serum Alcohol < 10 (<10) mg/dL 06/08/17 Range/Units 21:10 WBC 9.6 (3.5-10.8) 10^3/ul RBC 4.62 (4.0-5.4) 10^6/ul Hgb 13.0 (12.0-16.0) g/dl Hct 40 (35-47) % MCV 86 (80-97) fL MCH 28 (27-31) pg MCHC 33 (31-36) g/dl RDW 14 (10.5-15) % Plt Count 386 (150-450) 10^3/ul MPV 8 (7.4-10.4) um3 Neut % (Auto) 72.3 (38-83) % Lymph % (Auto) 15.1 L (25-47) % Davidson % (Auto) 8.9 (1-9) % Eos % (Auto) 3.2 (0-6) % Baso % (Auto) 0.5 (0-2) % Absolute Neuts (auto) 6.9 (1.5-7.7) 10^3/ul Absolute Lymphs (auto) 1.5 (1.0-4.8) 10^3/ul Absolute Monos (auto) 0.9 H (0-0.8) 10^3/ul Absolute Eos (auto) 0.3 (0-0.6) 10^3/ul Absolute Basos (auto) 0.1 (0-0.2) 10^3/ul Absolute Nucleated RBC 0 10^3/ul Nucleated RBC % 0 Sodium (133-145) mmol/L Potassium (3.5-5.0) mmol/L Chloride (101-111) mmol/L Carbon Dioxide (22-32) mmol/L Anion Gap (2-11) mmol/L BUN (6-24) mg/dL Creatinine (0.51-0.95) mg/dL Est GFR ( Amer) (>60) Est GFR (Non-Af Amer) (>60) BUN/Creatinine Ratio (8-20) Glucose (70-100) mg/dL Calcium (8.6-10.3) mg/dL Total Bilirubin (0.2-1.0) mg/dL AST (13-39) U/L ALT (7-52) U/L Alkaline Phosphatase (34-104) U/L Total Protein (6.4-8.9) g/dL Albumin (3.2-5.2) g/dL Globulin (2-4) g/dL Albumin/Globulin Ratio (1-3) TSH (0.34-5.60) mcIU/mL Urine Color Urine Appearance Urine pH (5-9) Ur Specific Almond (1.010-1.030) Urine Protein (Negative) Urine Ketones (Negative) Urine Blood (Negative) Urine Nitrate (Negative) Urine Bilirubin (Negative) Urine Urobilinogen (Negative) Ur Leukocyte Esterase (Negative) Urine WBC (Auto) (Absent) Urine RBC (Auto) (Absent) Ur Squamous Epith Cells (Absent) Urine Bacteria (Absent) Urine Glucose (Negative) Salicylates (<30) mg/dL Urine Opiates Screen (None Detect) Acetaminophen mcg/mL Ur Barbiturates Screen (None Detect) Ur Phencyclidine Scrn (None Detect) Ur Amphetamines Screen (None Detect) U Benzodiazepines Scrn (None Detect) Urine Cocaine Screen (None Detect) U Cannabinoids Screen (None Detect) Serum Alcohol (<10) mg/dL Result Diagrams: 06/08/17 21:10 06/08/17 21:10 Lab Statement: Any lab studies that have been ordered have been reviewed, and results considered in the medical decision making process. - EKG 21:06 Cardiac Rate: NL EKG Rhythm: Sinus Rhythm - 93 BPM Course/Dx - Course Course Of Treatment: 22 yr old female with suicidal threat when argument with boyfriend. UTI keflex - Differential Dx/Clinical Impression Provider Diagnosis: Suicidal ideation, Adjustment disorder, UTI (urinary tract infection) Discharge - Discharge Plan Condition: Good Disposition: OTHER Discharge Disposition Comment: sign out Dr Mejias with eval pending Patient Education Materials: Urinary Tract Infection in Women (ED) Referrals: No Primary Care Phys,NOPCP [Primary Care Provider] - The documentation as recorded by the Yehuda long Gabriel accurately reflects the service I personally performed and the decisions made by me, Jean-Paul Cross MD.
--- NOTE | 2017-06-09 02:45 | ED ---
Paulina Ronquillo Alfonso, scribed for Jhony Santos MD on 06/09/17 at 0223 . Progress - Progress Note Progress Note: This patient was signed out from Dr. Cross, pending disposition, awaiting MHE. The patients condition is deemed stable by Dr. Vance (psychologist) and they will be discharged to home with Dx of adjustment disorder. pt shows UTI on labs, will be prescribed antibiotic - Consult/PCP Time Called: 12:00 Course/Dx - Course Course Of Treatment: 22 yr old female with suicidal threat when argument with boyfriend. UTI keflex - Diagnoses Provider Diagnoses: Suicidal ideation, Adjustment disorder, UTI (urinary tract infection) The documentation as recorded by the Paulina long Alfonso accurately reflects the service I personally performed and the decisions made by , Jhony Santos MD.
[2017-06-09] MEDS ORDERED: Cephalexin CAP* 500 MG PO ONE (02:46)
[2017-06-09 03:21] VITALS: BP 130/80
== END 2017-06-09 02:50 | disposition home or self-care (01) ==
LOC: ED 19:56
DX: R45.851 Suicidal ideations (principal); F43.20 Adjustment disorder, unspecified; N39.0 Urinary tract infection, site not specified; Z87.891 Personal history of nicotine dependence
CPT/HCPCS: 36415; 80053; 80307; 80320; 80329; 81003; 81015; 84443; 84702; 85025; 93005; 94640; 99284; A9270-GY; G0480

== ENCOUNTER 2017-06-15 10:12 | Emergency (ER) | payer MEDICAID, OTHER ==
[2017-06-15] MEDS ORDERED: Penicillin VK TAB* 250 MG PO ONE (11:15)
[2017-06-15] MEDS ORDERED: traMADol TAB* 50 MG PO ONE (11:16)
[2017-06-15] MEDS ORDERED: Ibuprofen TAB* 400 MG PO ONE (11:16)
--- NOTE | 2017-06-15 11:32 | ED ---
Throat Pain/Nasal Congestion - HPI Summary HPI Summary: 22 female presents with upper right dental pain #2. States the pain began last night when her crown fell off. Patient denies any fever, chills, nausea, vomiting, difficulty swallowing and difficulty breathing. Patient denies any other symptoms. Is able to eat and drink. Has been using orajel and ibuprofen without relief. States she has an appointment next week to have it fixed. No other complaints. No PMHx. - History of Current Complaint Chief Complaint: EDDentalPain Time Seen by Provider: 06/15/17 10:22 Hx Obtained From: Patient Onset/Duration: Sudden Onset, Lasting Days - 1 Severity: Mild Cough: None - Allergies/Home Medications Allergies/Adverse Reactions: Allergies Allergy/AdvReac Type Severity Reaction Status Date / Time Shellfish Allergy Allergy Unknown Verified 06/15/17 10:24 Reaction Details Ketorolac Tromethamine AdvReac Intermediate Swelling Verified 06/15/17 10:24 [From Toradol] Of Face,Lips,& Throat Hydrocodone [From Vicodin] AdvReac Mild Vomiting Verified 06/15/17 10:24 Home Medications: Home Medications Albuterol inh POWDER (NF) [Proair Respiclick] 1 puff INH .ONCE DAILY 06/15/17 [ History Confirmed 06/15/17] Nexplanon 1 imp IMPLANT .ONCE 06/15/17 [History Confirmed 06/15/17] PMH/Surg Hx/FS Hx/Imm Hx Endocrine/Hematology History: Denies: Hx Diabetes, Hx Thyroid Disease, Hx Anemia, Hx Unexplained Bleeding Cardiovascular History: Denies: Hx Cardiac Arrest, Hx Embolism, Hx Hypertension, Hx Pacemaker/ICD Respiratory History: Reports: Hx Asthma - A CHILD, NOT NOW Denies: Hx Chronic Obstructive Pulmonary Disease (COPD), Hx Pneumonia GI History: Denies: Hx Ulcer History: Denies: Hx Renal Disease Sensory History: Denies: Hx Contacts or Glasses, Hx Hearing Aid, Hx Hearing Problem Opthamlomology History: Denies: Hx Contacts or Glasses Neurological History: Reports: Hx Seizures - Pt has had history of sezures when Hypoglycemic Psychiatric History: Reports: Hx Anxiety, Hx Depression, Hx Panic Disorder, Hx Inpatient Treatment, Hx Schizophrenia, Other Psychiatric Issues/Disorders - PANIC DISORDER Denies: Hx Eating Disorder, Hx of Violent Episodes Against Others - Immunization History Date of Tetanus Vaccine: utd Date of Influenza Vaccine: 2017 Immunizations Up to Date: Yes Infectious Disease History: No Infectious Disease History: Denies: Hx Clostridium Difficile, Hx Hepatitis, Hx Human Immunodeficiency Virus (HIV), Hx of Known/Suspected MRSA, Hx Shingles, Hx Tuberculosis, Hx Known/ Suspected VRE, Hx Known/Suspected VRSA, History Other Infectious Disease, Traveled Outside the [place] in Last 30 Days - Family History Known Family History: Positive: Cardiac Disease - Mother had an [place], Other - father -schizophrenia Negative: Diabetes Family History: Biological father - Schizophrenia - Social History Alcohol Use: Occasionally Hx Substance Use: Yes Substance Use Type: Reports: None Substance Use Comment - Amount & Last Used: denies Hx Tobacco Use: No Smoking Status (MU): Former Smoker Type: Cigarettes Length of Time of Smoking/Using Tobacco: 3 years Have You Smoked in the Last Year: No Review of Systems Constitutional: Negative Positive: Dental Pain Cardiovascular: Negative Respiratory: Negative Neurological: Negative All Other Systems Reviewed And Are Negative: Yes Physical Exam Triage Information Reviewed: Yes Vital Signs On Initial Exam: Initial Vitals Temp Pulse Resp BP Pulse Ox 98.6 F 100 17 130/66 98 06/15/17 10:14 06/15/17 10:14 06/15/17 10:14 06/15/17 10:14 06/15/17 10:14 Vital Signs Reviewed: Yes Appearance: Positive: Well-Appearing, Well-Nourished, Pain Distress - mild holind right cheek Skin: Positive: Warm, Skin Color Reflects Adequate Perfusion, Dry. Negative: Cold, Numb, Cyanosis @, Pale, Erythema @ Head/Face: Positive: Normal Head/Face Inspection Eyes: Positive: Conjunctiva Clear ENT: Positive: Hearing grossly normal, Pharynx normal, TMs normal, Dental tenderness - #2 Dental: Positive: Gross Decay/Caries @ - throughout, Dental Fracture @ - right upper #2. Negative: Percussion Tenderness @, Abscess @, Cervical Lymphadenopathy Neck: Positive: Supple, Nontender, No Lymphadenopathy Respiratory/Lung Sounds: Positive: Clear to Auscultation, Breath Sounds Present. Negative: Rales, Rhonchi, Wheezes Cardiovascular: Positive: Normal, RRR, Pulses are Symmetrical in both Upper and Lower Extremities. Negative: Murmur, Rub Bowel Sounds: Positive: Present Musculoskeletal: Positive: Normal, Strength/ROM Intact Neurological: Positive: Normal, Sensory/Motor Intact, Alert, Oriented to Person Place, Time Psychiatric: Positive: Affect/Mood Appropriate Diagnostics - Vital Signs Vital Signs Temp Pulse Resp BP Pulse Ox 06/15/17 10:14 98.6 F 100 17 130/66 98 - Laboratory Lab Statement: Any lab studies that have been ordered have been reviewed, and results considered in the medical decision making process. EENT Course/Dx - Course Course Of Treatment: appears to be suffering from a toothache due to crown falling off. given ibuprofen while in ED and first dose of penicillin. continue at home with pain mangement. follow up at appointment next week with dentist. no concern for abscess or other etiology at this time as symptoms just began. antibiotics are preventative. any new or worsening symptoms please seek medical attention. patient agrees and understands plan. - Differential Diagnoses Differential Diagnoses: Dental Abscess, Dental Caries, Fractured Tooth - Diagnoses Provider Diagnoses: Toothache Discharge - Discharge Plan Condition: Stable Disposition: HOME Prescriptions: Penicillin VK TAB* [Penicillin VK 250 mg Tab*] 250 mg PO QID #40 tab traMADol TAB* [Ultram*] 50 mg PO Q6HR PRN #10 tab MDD 2 PRN Reason: Pain Patient Education Materials: Toothache (ED) Referrals: No Primary Care Phys,NOPCP [Primary Care Provider] - [facility]IAN REFERRAL [Outside] Additional Instructions: Take prescribed medication as directed. Continue use of ibuprofen/tylenol for pain. Also continue use of orajel especially before eating drinking. Avoid very cold or very hot foods Recommend salt water gargles. Continue good oral hygiene. Follow up with dentist on Sunday. Any new or worsening symptoms such as fever or difficulty swallowing please seek medical attention.
[2017-06-15 11:52] VITALS: BP 112/78
== END 2017-06-15 11:51 | disposition home or self-care (01) ==
LOC: ED 10:12
DX: K08.89 Other specified disorders of teeth and supporting structures (principal); Z87.891 Personal history of nicotine dependence
CPT/HCPCS: 99282; A9270-GY

== ENCOUNTER 2017-07-08 17:08 | Emergency (ER) | payer MEDICAID ==
[2017-07-08 17:21] VITALS: BP 96/56
--- NOTE | 2017-07-08 17:32 | UC ---
Respiratory Complaint HPI - HPI Summary HPI Summary: 22 year old asthmatic female presents with wheezing and shortness of breath. - History of Current Complaint Chief Complaint: UCGeneralIllness Stated Complaint: SOB Time Seen by Provider: 07/08/17 17:32 Hx Obtained From: Patient Hx Last Menstrual Period: 07/05/17 Onset/Duration: Sudden Onset Severity Initially: Moderate Severity Currently: Moderate Pain Scale Used: 0-10 Numeric - 5 - Allergies/Home Medications Allergies/Adverse Reactions: Allergies Allergy/AdvReac Type Severity Reaction Status Date / Time Tramadol Allergy Severe seizures Verified 07/08/17 17:14 Shellfish Allergy Allergy Unknown Verified 07/08/17 17:14 Reaction Details Ketorolac Tromethamine AdvReac Intermediate Swelling Verified 07/08/17 17:14 [From Toradol] Of Face,Lips,& Throat PMH/Surg Hx/FS Hx/Imm Hx Previously Healthy: Yes - Surgical History Surgical History: None - Family History Known Family History: Positive: Cardiac Disease - Mother had an [place], Other - father -schizophrenia Negative: Diabetes Family History: Biological father - Schizophrenia - Social History Alcohol Use: Occasionally Substance Use Type: None Substance Use Comment - Amount & Last Used: denies Smoking Status (MU): Former Smoker Type: Cigarettes Length of Time of Smoking/Using Tobacco: 1 year Have You Smoked in the Last Year: No Household Exposure Type: Cigarettes - Immunization History Most Recent Influenza Vaccination: fall 2016 Most Recent Tetanus Shot: UTD Most Recent Pneumonia Vaccination: n/a Review of Systems Constitutional: Negative Skin: Negative Eyes: Negative ENT: Negative Respiratory: Shortness Of Breath, Cough Cardiovascular: Negative Gastrointestinal: Negative Genitourinary: Negative Motor: Negative Neurovascular: Negative Musculoskeletal: Negative Neurological: Negative Psychological: Negative All Other Systems Reviewed And Are Negative: Yes Physical Exam Triage Information Reviewed: Yes Vital Signs: Initial Vital Signs Temp 36.7 C 07/08/17 17:16 Pulse 99 07/08/17 17:16 Resp 16 07/08/17 17:16 BP 96/56 07/08/17 17:16 Pulse Ox 95 07/08/17 17:16 Vital Signs Reviewed: Yes Eye Exam: Normal ENT Exam: Normal Dental Exam: Normal Neck exam: Normal Neck: Positive: 1 Respiratory: Positive: Wheezing Cardiovascular Exam: Normal Abdominal Exam: Normal Musculoskeletal Exam: Normal Neurological Exam: Normal Psychological Exam: Normal Skin Exam: Normal UC Diagnostic Evaluation - Laboratory O2 Sat by Pulse Oximetry: 95 Respiratory Course/Dx - Differential Dx/Diagnosis Provider Diagnoses: cough. wheezing. shortness of breath Discharge - Discharge Plan Condition: Stable Disposition: HOME Prescriptions: Albuterol HFA INHALER* [Ventolin HFA Inhaler*] 1 puff INH Q6H PRN #1 mdi PRN Reason: Wheezing Patient Education Materials: Wheezing (ED) Forms: *Work Release Referrals: No Primary Care Phys,NOPCP [Primary Care Provider] -
[2017-07-08] MEDS ORDERED: Albuterol HFA INHALER* 8 gm MDI INH ONE (18:19)
== END 2017-07-08 17:42 | disposition home or self-care (01) ==
LOC: UCEAST 17:08
DX: R05 Cough (principal); R06.2 Wheezing; R06.02 Shortness of breath; Z87.891 Personal history of nicotine dependence
CPT/HCPCS: 99212; A9270-GY; G0463

== ENCOUNTER 2017-07-27 18:38 | Emergency (ER) | payer MEDICAID ==
[2017-07-27 18:47] VITALS: BP 120/55
--- NOTE | 2017-07-27 19:07 | UC ---
Lower Extremity/Ankle HPI - HPI Summary HPI Summary: Pt presents with right ankle pain since this morning. She tells me that on her way to work this morning she slipped on the ice and "rolled" her right ankle. 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 After about an hour of work, she was having pain in her right ankle and her work told her to leave and be seen at which point she came to Urgent Care. She says she wouldn't be here except her work made her come. She denies hx of injury, numbness, tingling, or decreased ROM. She is ambulating without assistance and with mild pain. - History of Current Complaint Chief Complaint: UCLowerExtremity Stated Complaint: FOOT INJURY Time Seen by Provider: 07/27/17 18:55 Hx Obtained From: Patient Hx Last Menstrual Period: <1 WEEK AGO ?: No Onset/Duration: Sudden Onset Severity Initially: Mild Severity Currently: Mild Pain Intensity: 1 Pain Scale Used: 0-10 Numeric Aggravating Factor(s): Standing, Ambulation Alleviating Factor(s): Rest Able to Bear Weight: Yes - Allergies/Home Medications Allergies/Adverse Reactions: Allergies Allergy/AdvReac Type Severity Reaction Status Date / Time Tramadol Allergy Severe seizures Verified 07/27/17 18:47 Shellfish Allergy Allergy Unknown Verified 07/27/17 18:47 Reaction Details Ketorolac Tromethamine AdvReac Intermediate Swelling Verified 07/27/17 18:47 [From Toradol] Of Face,Lips,& Throat Home Medications: Home Medications Allergy Pill* 1 tab PO DAILY 07/27/17 [History Confirmed 07/27/17] PMH/Surg Hx/FS Hx/Imm Hx Previously Healthy: Yes Psychological History: Anxiety, Depression - Surgical History Surgical History: None - Family History Known Family History: Positive: Cardiac Disease - Mother had an [place], Other - father -schizophrenia Negative: Diabetes Family History: Biological father - Schizophrenia - Social History Occupation: Employed Full-time Lives: Alone Alcohol Use: Occasionally Substance Use Type: None Substance Use Comment - Amount & Last Used: denies Smoking Status (MU): Former Smoker Type: Cigarettes Length of Time of Smoking/Using Tobacco: 1 year Have You Smoked in the Last Year: No Household Exposure Type: Cigarettes - Immunization History Most Recent Influenza Vaccination: fall 2016 Most Recent Tetanus Shot: UTD Most Recent Pneumonia Vaccination: n/a Review of Systems Constitutional: Negative Skin: Negative Respiratory: Negative Cardiovascular: Negative Neurovascular: Negative Musculoskeletal: Other: - Right leg pain Neurological: Negative All Other Systems Reviewed And Are Negative: Yes Physical Exam Triage Information Reviewed: Yes Appearance: Well-Appearing, No Pain Distress, Well-Nourished Vital Signs: Initial Vital Signs Temp 98.9 F 07/27/17 18:44 Pulse 98 07/27/17 18:44 Resp 16 07/27/17 18:44 BP 120/55 07/27/17 18:44 Pulse Ox 99 07/27/17 18:44 Vital Signs Reviewed: Yes Respiratory: Positive: Chest non-tender, Lungs clear, Normal breath sounds Cardiovascular: Positive: RRR, No Murmur, Pulses Normal - Right DP and TP, Brisk Capillary Refill - Right foot and all toes Musculoskeletal: Positive: Strength Intact - Right foot and ankle, ROM Intact - Right foot and ankle, No Edema - Right foot and ankle, Other: - NTTP right ankle or foot. No obvious bony deformities. Neurological: Positive: Alert, Muscle Tone Normal, Other: - Sensations intact right lower leg, foot, and all toes Psychological: Positive: Age Appropriate Behavior Skin: Positive: Other - Mild ecchymosis on the posteromedial aspect of the right malleolus. No erythema or open wounds. Lower Extremity Course/Dx - Course Course Of Treatment: Lower Leg/Ankle XR: IMPRESSION: Negative for fracture or malalignment. Mild soft tissue swelling greatest over the medial aspect. I have MIKHAIL wrapped her ankle and advised RICE and ibuprofen prn. - Differential Dx/Diagnosis Differential Diagnosis/HQI/PQRI: Contusion, Dislocation, Fracture (Closed), Sprain, Strain Provider Diagnoses: Right ankle contusion Discharge - Discharge Plan Condition: Stable Disposition: HOME Patient Education Materials: Foot Contusion (ED) Forms: *Work Release Referrals: No Primary Care Phys,NOPCP [Primary Care Provider] - Additional Instructions: If you develop a fever, shortness of breath, chest pain, new or worsening symptoms - please call your PCP or go to the ED. 1) Rest, Ice, and Elevate your foot as much as possible for the next 24-48hours. 2) Activities as tolerated. May take tylenol for pain as needed.
--- NOTE | 2017-07-27 19:33 | RAD ---
Indication: RIGHT ankle medial malleolus pain post fall. Comparison: April 16, 2005 Technique: AP, mortise, and lateral views RIGHT ankle. REPORT AND IMPRESSION: Negative for fracture or malalignment. Mild soft tissue swelling greatest over the medial aspect.
== END 2017-07-27 19:48 | disposition home or self-care (01) ==
LOC: UCEAST 18:38
DX: S90.01XA Contusion of right ankle, initial encounter (principal); W18.49XA Other slipping, tripping and stumbling without falling, initial encounter; Y93.01 Activity, walking, marching and hiking; Y92.9 Unspecified place or not applicable; Y99.0 Civilian activity done for income or pay; F41.9 Anxiety disorder, unspecified; F32.9 Major depressive disorder, single episode, unspecified; Z88.5 Allergy status to narcotic agent; Z87.891 Personal history of nicotine dependence
CPT/HCPCS: 99212; G0463

== ENCOUNTER 2017-08-04 16:16 | Emergency (ER) | payer MEDICAID, OTHER ==
[2017-08-04 16:35] VITALS: BP 100/68
[2017-08-04] MEDS ORDERED: Ciprofloxacin 0.3% OPTH.SOL* 2.5 ML BTL LEFT EYE ONE (16:46)
[2017-08-04] MEDS ORDERED: HYDROcodone/ACETAMIN 5-325 MG* 1 TAB PO ONE (16:49)
--- NOTE | 2017-08-28 15:37 | UC ---
Ear Complaint HPI - HPI Summary HPI Summary: right ear is swollen shut and has pain radiating in to neck for 2 days - History of Current Complaint Chief Complaint: UCEar Stated Complaint: EAR & JAW PAIN,SWELLING Time Seen by Provider: 08/04/17 16:33 Hx Obtained From: Patient Hx Last Menstrual Period: 06/27/17 ?: No Onset/Duration: Sudden Onset Severity Initially: Moderate Severity Currently: Moderate Pain Intensity: 5 Pain Scale Used: Adult Non Verbal - Allergies/Home Medications Allergies/Adverse Reactions: Allergies Allergy/AdvReac Type Severity Reaction Status Date / Time MS Tramadol [Tramadol] Allergy Severe seizures Verified 08/06/17 07:56 MS Shellfish Allergy Allergy Unknown Verified 08/06/17 07:56 [Shellfish Allergy] Reaction Details MS Ketorolac Tromethamine AdvReac Intermediate Swelling Verified 08/06/17 07:56 [From Toradol] Of Face,Lips,& Throat Home Medications: Home Medications Acetaminophen TAB* [Tylenol TAB*] 650 mg PO DAILY PRN 08/04/17 [History Confirmed 08/04/17] Ibuprofen [Ibuprofen 200 MG] 600 mg PO DAILY PRN 08/04/17 [History Confirmed ] Medroxyprogesterone Acetate [Depo-Provera] 400 mg INJ MONTHLY 08/04/17 [History Confirmed 08/04/17] PMH/Surg Hx/FS Hx/Imm Hx - Surgical History Surgical History: None - Family History Known Family History: Positive: Cardiac Disease - Mother had an [place], Other - father -schizophrenia Negative: Diabetes Family History: Biological father - Schizophrenia - Social History Occupation: Employed Full-time Lives: With Family Alcohol Use: Weekly Substance Use Type: None Substance Use Comment - Amount & Last Used: denies Smoking Status (MU): Former Smoker Type: Cigarettes Length of Time of Smoking/Using Tobacco: 1 year Have You Smoked in the Last Year: No Household Exposure Type: Cigarettes - Immunization History Most Recent Influenza Vaccination: fall 2016 Most Recent Tetanus Shot: UTD Most Recent Pneumonia Vaccination: n/a Review of Systems Constitutional: Negative Skin: Negative Eyes: Negative ENT: Ear Ache - right Respiratory: Negative Cardiovascular: Negative Gastrointestinal: Negative Genitourinary: Negative Motor: Negative Neurovascular: Negative Musculoskeletal: Negative Neurological: Negative Psychological: Negative Is Patient Immunocompromised?: No All Other Systems Reviewed And Are Negative: Yes Physical Exam Triage Information Reviewed: Yes Appearance: Well-Appearing, No Pain Distress, Well-Nourished Vital Signs: Initial Vital Signs Temp 100.3 F 08/04/17 16:29 Pulse 109 08/04/17 16:29 Resp 14 08/04/17 16:29 BP 100/68 08/04/17 16:29 Pulse Ox 100 08/04/17 16:29 Vital Signs Reviewed: Yes Eye Exam: Normal Eyes: Positive: Conjunctiva Clear ENT Exam: Normal ENT: Positive: Normal ENT inspection, Hearing grossly normal, Pharynx normal, TMs normal - left, Uvula midline, Other - right tm ruptured. Negative: Nasal congestion, Tonsillar swelling, Tonsillar exudate, Trismus, Muffled voice, Hoarse voice, Dental tenderness, Sinus tenderness Dental Exam: Normal Neck exam: Normal Neck: Positive: Supple, Nontender, No Lymphadenopathy Respiratory Exam: Normal Respiratory: Positive: Chest non-tender, Lungs clear, Normal breath sounds, No respiratory distress, No accessory muscle use Cardiovascular Exam: Normal Cardiovascular: Positive: RRR, No Murmur, Pulses Normal, Brisk Capillary Refill Musculoskeletal Exam: Normal Musculoskeletal: Positive: Strength Intact, ROM Intact, No Edema Neurological Exam: Normal Neurological: Positive: Alert, Muscle Tone Normal Psychological Exam: Normal Skin Exam: Normal Ear Complaint Course/Dx - Course Course Of Treatment: keep ear dry, augmentin, tylenol, ibuprofen follow with pcp - Differential Dx/Diagnosis Provider Diagnoses: ruptured right tympanic membrane Discharge - Discharge Plan Condition: Stable Disposition: HOME Prescriptions: Amoxicillin/Clavulanate TAB* [Augmentin TAB 875*] 875 mg PO BID #20 tab Patient Education Materials: Ruptured Eardrum (ED), Ear Infection (ED) Referrals: [facility] [Outside] - 4 Days
== END 2017-08-04 17:10 | disposition home or self-care (01) ==
LOC: UCEAST 16:16
DX: H72.91 Unspecified perforation of tympanic membrane, right ear (principal); Z88.5 Allergy status to narcotic agent; Z91.013 Allergy to seafood; Z87.891 Personal history of nicotine dependence
CPT/HCPCS: 99212; A9270-GY; G0463

== ENCOUNTER 2017-08-06 07:49 | Emergency (ER) | payer MEDICAID ==
[2017-08-06] MEDS ORDERED: Ondansetron ODT TAB* 4 MG PO ONE (09:11)
[2017-08-06] MEDS ORDERED: oxyCODONE/Acetamin 5/325 MG* TAB PO ONE (09:11)
[2017-08-06] MEDS ORDERED: Neomyc/Polym/HC 1% OTIC SUSP* **OTIC RIGHT EAR ONE (10:31)
[2017-08-06 12:59] VITALS: BP 119/69
--- NOTE | 2017-08-06 14:13 | ED ---
Leydi Ronquillo Thomas, scribed for Julián Barton MD on 08/06/17 at 0907 . Throat Pain/Nasal Congestion - HPI Summary HPI Summary: The patient is a 22 year old female presenting to the ED complaining of right- sided ear pain that began a few days ago. She describes this pain as pressure and it is aggravated by touch. The patient has treated the pain with Tylenol prior to arrival. Patient additionally complaining of fever (101.2 yesterday), nausea, diarrhea, vomiting, and insomnia secondary to the pain. She was recently evaluated at urgent care and was diagnosed with a ruptured eardrum and otitis media. She is on antibiotics. - History of Current Complaint Chief Complaint: EDUpperRespComplaint Time Seen by Provider: 08/06/17 08:05 Hx Obtained From: Patient Onset/Duration: Lasting Days - a few days, Still Present Severity: Moderate Cough: None Related History: Other (Noted In Comments) - Recent urgent care visit - Allergies/Home Medications Allergies/Adverse Reactions: Allergies Allergy/AdvReac Type Severity Reaction Status Date / Time Tramadol Allergy Severe seizures Verified 08/06/17 07:56 Shellfish Allergy Allergy Unknown Verified 08/06/17 07:56 Reaction Details Ketorolac Tromethamine AdvReac Intermediate Swelling Verified 08/06/17 07:56 [From Toradol] Of Face,Lips,& Throat Home Medications: Home Medications HYDROcodone/ACETAMIN 5-325 MG* [[place] 5-325 TAB*] 1 tab PO Q6H PRN MDD 4 tabs [History Confirmed 08/06/17] PMH/Surg Hx/FS Hx/Imm Hx Previously Healthy: No Endocrine/Hematology History: Denies: Hx Diabetes, Hx Thyroid Disease, Hx Anemia, Hx Unexplained Bleeding Cardiovascular History: Denies: Hx Cardiac Arrest, Hx Embolism, Hx Hypertension, Hx Pacemaker/ICD Respiratory History: Reports: Hx Asthma - A CHILD, NOT NOW Denies: Hx Chronic Obstructive Pulmonary Disease (COPD), Hx Pneumonia GI History: Denies: Hx Ulcer History: Denies: Hx Renal Disease Sensory History: Denies: Hx Contacts or Glasses, Hx Hearing Aid, Hx Hearing Problem Opthamlomology History: Denies: Hx Contacts or Glasses Neurological History: Reports: Hx Seizures - Pt has had history of sezures when Hypoglycemic Psychiatric History: Reports: Hx Anxiety, Hx Depression, Hx Panic Disorder, Hx Inpatient Treatment, Hx Schizophrenia, Other Psychiatric Issues/Disorders - PANIC DISORDER Denies: Hx Eating Disorder, Hx of Violent Episodes Against Others - Immunization History Date of Tetanus Vaccine: utd Date of Influenza Vaccine: 2017 Infectious Disease History: No Infectious Disease History: Denies: Hx Clostridium Difficile, Hx Hepatitis, Hx Human Immunodeficiency Virus (HIV), Hx of Known/Suspected MRSA, Hx Shingles, Hx Tuberculosis, Hx Known/ Suspected VRE, Hx Known/Suspected VRSA, History Other Infectious Disease, Traveled Outside the [place] in Last 30 Days - Family History Known Family History: Positive: Cardiac Disease - Mother had an [place], Other - father -schizophrenia Negative: Diabetes Family History: Biological father - Schizophrenia - Social History Alcohol Use: Weekly Hx Substance Use: Yes Substance Use Type: Reports: None Substance Use Comment - Amount & Last Used: denies Hx Tobacco Use: No Smoking Status (MU): Former Smoker Type: Cigarettes Length of Time of Smoking/Using Tobacco: 1 year Have You Smoked in the Last Year: No Review of Systems Positive: Fever Positive: Ear Ache - right-sided Positive: Vomiting, Diarrhea, Nausea Neurological: Other - Insomnia secondary to pain All Other Systems Reviewed And Are Negative: Yes Physical Exam - Summary Physical Exam Summary: Appearance: The patient is well-nourished in no acute distress and in no acute pain. Skin: The skin is warm and dry and skin color reflects adequate perfusion. HEENT: The head is normocephalic and atraumatic. The pupils are equal and reactive. The conjunctivae are clear and without drainage. Nares are patent and without drainage. Mouth reveals moist mucous membranes and the throat is without erythema and exudate. The external ears are intact. The ear canals are patent and without drainage. She is tender to palpation to her tragus or auricle. The tympanic membranes are intact. Neck: the neck is supple with full range of motion and non-tender. There are no carotid bruits. There is no neck vein distension. Respiratory: Chest is non-tender. Lungs are clear to auscultation and breath sounds are symmetrical and equal. Cardiovascular: Heart is regular rate and rhythm. There is no murmur or rub auscultated. There is no peripheral edema and pulses are symmetrical and equal. Abdomen: The abdomen is soft and non-tender. There are normal bowel sounds heard in all four quadrants and there is no organomegaly palpated. Musculoskeletal: There is no back tenderness noted. Extremities are non-tender with full range of motion. There is good capillary refill. There is no peripheral edema or calf tenderness elicited. Neurological: Patient is alert and oriented to person, place and time. The patient has symmetrical motor strength in all four extremities. Cranial nerves are grossly intact. Deep tendon reflexes are symmetrical and equal in all four extremities. Psychiatric: The patient has an appropriate affect and does not exhibit any anxiety or depression. Triage Information Reviewed: Yes Vital Signs On Initial Exam: Initial Vitals Temp Pulse Resp BP Pulse Ox 98.6 F 90 20 102/51 100 08/06/17 07:50 08/06/17 07:50 08/06/17 07:50 08/06/17 07:50 08/06/17 07:50 Vital Signs Reviewed: Yes - Agustín Coma Scale Coma Scale Total: 15 Diagnostics - Vital Signs Vital Signs Temp Pulse Resp BP Pulse Ox 08/06/17 08:07 96 99 08/06/17 08:05 105/59 08/06/17 07:50 98.6 F 90 20 102/51 100 - Laboratory Lab Statement: Any lab studies that have been ordered have been reviewed, and results considered in the medical decision making process. EENT Course/Dx - Course Course Of Treatment: Ms. Leavitt presetned with a day or so of right ear pain which she describes as feeling like it will explode. She was seen at [facility] yesterday and reports that a culturette was inserted into her ear and came out with blood on it so it was presumed that she had ruptured her eardrum. She was given augmentin and norco but is not taking the norco because it doesn't help. Her main C/O is severe pain and nausea. Her exam was not really that remarkable. She has a lot of anxiety which she reports is chronic. She has tenderness to any palpation or movement of her tragus or auricle. Her canal looks clean though. Her TM is bulging and opaque. Either the norco or the augmentin could be causing her nausea and I recommended prescribing zofran and taking the norco for pain which she agreed to. She does not look toxic in any way. - Diagnoses Provider Diagnoses: Otitis media Discharge - Discharge Plan Condition: Stable Disposition: HOME Prescriptions: Ondansetron ODT TAB* [Zofran Odt TAB*] 4 mg PO Q6H PRN #20 tab.odt PRN Reason: Nausea/Vomiting Patient Education Materials: Otitis Media (ED) Referrals: [facility]IAN REFERRAL [Outside] - 3 Days Additional Instructions: Continue your medication as directed. Return to the emergency department for any new or worsening symptoms. Follow up with your primary care physician in three days. The documentation as recorded by the Leydi long Thomas accurately reflects the service I personally performed and the decisions made by me, Julián Barton MD.
== END 2017-08-06 12:57 | disposition home or self-care (01) ==
LOC: ED 07:49
DX: H66.91 Otitis media, unspecified, right ear (principal); R50.9 Fever, unspecified; R11.0 Nausea; R19.7 Diarrhea, unspecified; R11.10 Vomiting, unspecified; R56.9 Unspecified convulsions; F41.0 Panic disorder [episodic paroxysmal anxiety]; F32.9 Major depressive disorder, single episode, unspecified; Z88.5 Allergy status to narcotic agent; Z91.013 Allergy to seafood; Z87.891 Personal history of nicotine dependence
CPT/HCPCS: 99282; A9270-GY

== ENCOUNTER 2017-08-12 09:02 | Emergency (ER) | payer MEDICAID, OTHER ==
[2017-08-12] MEDS ORDERED: NS 0.9% 1000 ML* 1,000 ML IV ONE ×2 (09:30→16:17)
[2017-08-12] MEDS ORDERED: diPHENhydraMINE IV* 50 MG/ML 1 ml VIAL (BENADRYL) IV ONE ×2 (09:31→18:34)
[2017-08-12] MEDS ORDERED: PROCHLORPERAZINE INJ 5 MG/ML 2 ML VIAL IV ONE ×2 (09:34→18:35)
[2017-08-12 09:43] LABS: ABS Basophils 0.1 10^3/ul (0-0.2); ABS Eosinophils 0.7 10^3/ul (0-0.6); ABS Lymphocytes 1.5 10^3/ul (1.0-4.8); ABS Monocytes 0.8 10^3/ul (0-0.8); ABS Neutrophils 4.4 10^3/ul (1.5-7.7); ABS Nucleated RBC 0 10^3/ul; Eosinophil % 9.5 % (0-6); Hematocrit 42 % (35-47); Hemoglobin 13.8 g/dl (12.0-16.0); Lymphocyte % 19.9 % (25-47); Mean Corpuscular HGB Conc 33 g/dl (31-36); Mean Corpuscular Hemoglobin 28 pg (27-31); Mean Corpuscular Volume 85 fL (80-97); Mean Platelet Volume 8 um3 (7.4-10.4); Nucleated Red Blood Cells % 0; Platelet Count 354 10^3/ul (150-450); Red Blood Count 4.89 10^6/ul (4.0-5.4); Red Cell Distribution Width 17 % (10.5-15); White Blood Count 7.4 10^3/ul (3.5-10.8)
[2017-08-12] MEDS ORDERED: Morphine INJ* 4 MG/ML 1 ML CARPUJECT IV ONE ×2 (09:51→10:56)
--- NOTE | 2017-08-12 09:51 | ED ---
Abdominal Pain/Female - HPI Summary HPI Summary: Pt here w/ acute onset lower, central ab pain. This started last night around 18 :00 and has persisted since. She reports she feels like she "swallowed a razor blade". Tried not to come in but pain is so bad, she couldn't take it anymore. She reports multiple episodes of vomiting and last BM yesterday - normal for her. Has nausea now. Pain 8/10. Denies dysuria, urinary frequency, urgency, flank pain. Does admit last month she had increased urination and urine was very clear - this has stopped. No h/o UTI, stones. Denies GERD, ulcer, IBS, Crohns, UC. No previous ab surgery. Only medication condition is anxiety - takes xanax PRN - has not taken in a while. LMP 3 months ago. Has been taking seasonique for 7-8 months now. Has had 1 period in between 3 month packs - on 2nd pack now. Reports she's due for next period in 3 weeks. Had "spotting" this morning - ""wiped and noticed pink on TP ". Notes h/o implanon removed 8 months ago which is when she started seasonique. She is sexually active w/ her . Admits to dyspareunia in certain positions. No post coital bleeding. Has had 1 pap as she's only 22 y.o. No h/o STD, ovarian cyst, uterine fibroid, etc. Denies h/o sexual trauma (this was asked as she's quite anxious about the idea of a pelvic exam and has what appears to be healed self injury lacs over Lt forearm). - History of Current Complaint Chief Complaint: EDAbdPain Stated Complaint: ABD PAIN Time Seen by Provider: 08/12/17 09:08 Hx Obtained From: Patient Hx Last Menstrual Period: 06/27/17 Pain Intensity: 9 Allergies/Adverse Reactions: Allergies Allergy/AdvReac Type Severity Reaction Status Date / Time Tramadol Allergy Severe seizures Verified 08/06/17 07:56 Shellfish Allergy Allergy Unknown Verified 08/06/17 07:56 Reaction Details Ketorolac Tromethamine AdvReac Intermediate Swelling Verified 08/06/17 07:56 [From Toradol] Of Face,Lips,& Throat PMH/Surg Hx/FS Hx/Imm Hx Previously Healthy: Yes Endocrine/Hematology History: Denies: Hx Anticoagulant Therapy, Hx Blood Disorders, Hx Diabetes, Hx Thyroid Disease, Hx Anemia, Hx Unexplained Bleeding, Autoimmune Disease Cardiovascular History: Denies: Hx Cardiac Arrest, Hx Embolism, Hx Hypertension, Hx Pacemaker/ICD Respiratory History: Reports: Hx Asthma - A CHILD, NOT NOW Denies: Hx Chronic Obstructive Pulmonary Disease (COPD), Hx Pneumonia GI History: Denies: Hx Cirrhosis, Hx Crohn's Disease, Hx Diverticulosis, Hx Gall Bladder Disease, Hx Gastroesophageal Reflux Disease, Hx Gastrointestinal Bleed, Hx Hiatal Hernia, Hx Irritable Bowel, Hx Obstructive Bowel, Hx Ulcer History: Denies: Hx Renal Disease Sensory History: Denies: Hx Contacts or Glasses, Hx Hearing Aid, Hx Hearing Problem Opthamlomology History: Denies: Hx Contacts or Glasses Neurological History: Reports: Hx Seizures - Pt has had history of sezures when Hypoglycemic Psychiatric History: Reports: Hx Anxiety, Hx Depression, Hx Panic Disorder, Hx Inpatient Treatment, Hx Schizophrenia, Other Psychiatric Issues/Disorders - PANIC DISORDER Denies: Hx Eating Disorder, Hx of Violent Episodes Against Others - Immunization History Date of Tetanus Vaccine: utd Date of Influenza Vaccine: 2017 Infectious Disease History: No Infectious Disease History: Denies: Hx Clostridium Difficile, Hx Hepatitis, Hx Human Immunodeficiency Virus (HIV), Hx of Known/Suspected MRSA, Hx Shingles, Hx Tuberculosis, Hx Known/ Suspected VRE, Hx Known/Suspected VRSA, History Other Infectious Disease, Traveled Outside the [place] in Last 30 Days - Family History Known Family History: Positive: Cardiac Disease - Mother had an [place], Other - father -schizophrenia Negative: Diabetes Family History: Biological father - Schizophrenia - Social History Occupation: Student Lives: With Family - Alcohol Use: Weekly Hx Substance Use: Yes Substance Use Type: Reports: None Substance Use Comment - Amount & Last Used: denies Hx Tobacco Use: No Smoking Status (MU): Former Smoker Type: Cigarettes Length of Time of Smoking/Using Tobacco: 1 year Have You Smoked in the Last Year: No Review of Systems Constitutional: Negative Negative: Fever, Chills, Fatigue Cardiovascular: Negative Negative: Palpitations, Chest Pain Respiratory: Negative Negative: Shortness Of Breath, Cough Positive: Abdominal Pain, Vomiting, Nausea. Negative: Diarrhea Positive: see HPI Musculoskeletal: Negative Skin: Negative Neurological: Negative Positive: Anxious All Other Systems Reviewed And Are Negative: Yes Physical Exam Triage Information Reviewed: Yes Vital Signs On Initial Exam: Initial Vitals Temp Pulse Resp BP Pulse Ox 100 F 106 22 108/87 100 08/12/17 09:13 08/12/17 09:13 08/12/17 09:13 08/12/17 09:13 08/12/17 09:13 Vital Signs Reviewed: Yes Appearance: Positive: Well-Appearing, Well-Nourished, Pain Distress - anxious, tearful but is consolable for periods of time Skin: Positive: Warm, Skin Color Reflects Adequate Perfusion, Dry Head/Face: Positive: Normal Head/Face Inspection Eyes: Positive: Normal, EOMI, Conjunctiva Clear - anicteric sclera ENT: Positive: Normal ENT inspection, Hearing grossly normal, Pharynx normal - mucosa moist Neck: Positive: Supple - no gross thyromegaly Respiratory/Lung Sounds: Positive: Clear to Auscultation, Breath Sounds Present. Negative: Rales, Rhonchi, Stridor, Wheezes Cardiovascular: Positive: Normal, Pulses are Symmetrical in both Upper and Lower Extremities, Tachycardia, S1, S2. Negative: Murmur, Rub Abdomen Description: Positive: Guarding, McBurney's Point Tenderness, Other: - ab exam delayed as pt was hysterical and in a great deal of pain upon initial arrival - after 4mg morphine, ab exam revealed RLQ TTP w/ rebounding - LLQ pain referred to RLQ (+ Rovsing) - some pain w/ psoas test; neg obturator sign. Negative: Distended, Hernia @ Bowel Sounds: Positive: Present Pelvic Exam: Positive: external exam normal, speculum exam normal, discharge - mucous d/c -no aurora bleeding observed, tender adnexa - Rt internal adnexal pain greater then external hand palpation over RLQ. Negative: no cerv. motion tender, active bleeding Musculoskeletal: Positive: Normal, Strength/ROM Intact Neurological: Positive: Normal, Sensory/Motor Intact, Alert, Oriented to Person Place, Time, CN Intact II-III Psychiatric: Positive: Anxious - Agustín Coma Scale Coma Scale Total: 15 Diagnostics - Vital Signs Vital Signs Temp Pulse Resp BP Pulse Ox 08/12/17 09:13 100 F 106 22 108/87 100 - Laboratory Lab Results: Lab Results 08/12/17 Range/Units 09:13 WBC 7.4 (3.5-10.8) 10^3/ul RBC 4.89 (4.0-5.4) 10^6/ul Hgb 13.8 (12.0-16.0) g/dl Hct 42 (35-47) % MCV 85 (80-97) fL MCH 28 (27-31) pg MCHC 33 (31-36) g/dl RDW 17 H (10.5-15) % Plt Count 354 (150-450) 10^3/ul MPV 8 (7.4-10.4) um3 Neut % (Auto) 59.5 (38-83) % Lymph % (Auto) 19.9 L (25-47) % Castro % (Auto) 10.2 H (1-9) % Eos % (Auto) 9.5 H (0-6) % Baso % (Auto) 0.9 (0-2) % Absolute Neuts (auto) 4.4 (1.5-7.7) 10^3/ul Absolute Lymphs (auto) 1.5 (1.0-4.8) 10^3/ul Absolute Monos (auto) 0.8 (0-0.8) 10^3/ul Absolute Eos (auto) 0.7 H (0-0.6) 10^3/ul Absolute Basos (auto) 0.1 (0-0.2) 10^3/ul Absolute Nucleated RBC 0 10^3/ul Nucleated RBC % 0 Result Diagrams: 08/12/17 16:26 08/12/17 09:13 Lab Statement: Any lab studies that have been ordered have been reviewed, and results considered in the medical decision making process. Re-Evaluation - Re-Evaluation First Eval Change: Improved - 810-6/10 pain s/p 4mg morphine and anti-emetic meds. Pain worse after pelvic so 8mg moprhine ordered before TVUS. Second Eval Change: Worse - pain worse after TVUS - order dilaudid 1mg Third Eval Change: Unchanged - pt reports pain was better after morphine vs. dilaudid. Discussion about discerning between pain and anxiety. She reports both are 7/ 10. Will try ativan. Fourth Eval Change: Unchanged - pt reports her pain and anxiety are still bothersome. Nausea is creeping back and reports 1 x incident of "gagging"/dry heave - will order more compazine and benadryl as it's been many hours since last dose and she tolerated this well. 50mg of benadryl in the hopes of better alleviating anxiety. Abdominal Pain Fem Course/Dx - Course Course Of Treatment: Pt here w/ acute onset of ab pain which she reports as "razors in her ab" accompanied by vomiting starting last night around 18:00. She reports she vomited "20 times" last night and has nausea at presentation. Pt was initially hysterical w/ crying and pain so pain medication was ordered along with anti-emetic. Her pain improved from 8/10 to 6/10 and nausea resolved. Her exam was positive for gaurding, + Rovsing, + McBurney point tenderness w/ rebounding. HCG returned at 5706 (about 5-6 weeks ) - incidental finding and pt is quite upset about this. Suspicious for ectopic . TVUS ordered and ABO/Rh type d/t reported spotting. Nausea and pain controlled w/ compazine, benadryl and morphine. Pt indicates that if she has a viable , she does not want to maintain it - would like through [facility] in [place] as they are most familiar w/ her care. Pending TVUS for final results (diff: IUP, ectopic, molar, etc). Pt aware of these many other options and encouraged to avoid excess communication w/ many people until more results are available. She agrees w/ plan. UPDATE: TVUS report reveals single IUP w/o pole at 5 weeks and 2 days. Small subchorionic hemorrhage. No ectopic reported, torsion or extrauterine hemorrhage noted by tech or radiologist. Clinical concern for appendicitis. Discussed w/ Dr. Salazar who agrees external appendix U/S should be performed. After speaking w/ pt about confirmed IUP, she reports she does not want to keep viable and has already made an appt at [facility] for consult tomorrow at 13:00. She is again requesting anxiety medication. Discussed with Dr. Salazar - will consult OBGYN before further action is taken given the possible legal ramifications of providing medications that could be harmful in prior to pt's actual . She states she will sign papers to show her comittement to this procedure however given her physical findings of self harm and chart review of multiple ED visits, many for MH issues, do not feel pt is making a clear decision. Spoke w/ Dr. Schultz, OBGYN on-call. Recommends continuation of treating this as a viable . He came in to see pt. Assessed TVUS and reports she has a corpus luteum on the Rt which could be causing her pain and feels her risk of appendicitis is low given her other findings however cannot say with confidence that she does not have appendicitis as she is reporting periumbilical pain radiating into RLQ and when he pushes on LLQ, she reports pain in RLQ and pain is worse w/ release of palpation (ie. rebounding) - these findings are present after pt has been medicated with morphine x 2 and dilaudid. He does not recommend CT for his purposes in evaluating the pt as an OBGYN as she is not a reliable source for termination at this time - anxiety high. Defers further assessment of appendicitis to Dr. Alvarez, surgeon on- call. Spoke w/ Dr. Alvarez who requests to speak with my attending, Dr. Salazar. Dr. Salazar in to see the pt (see progress note). Agrees surgical consult is appropriate as pt has had morphine 4mg followed by morphine 8 mg followed by dilaudid 1mg and ativan 1 mg and still reporting great deal of pain and positive acute ab on exam. Dr. Salazar spoke w/ Dr. Alvarez who reports he will come in to evaluate pt (delay in this consult added time to length of stay). In the meantime, nursing reminded that a urine was ordered at 9:30am today and still pending. Pt provided urine and returns with + blood (she reports "spotting " earlier today and has small hemorrhage on TVUS which could be source) and she has + bacteria but also has + BV on vaginal swab attained earlier in the day which could be the source. Also of note, Dr. Salazar reports CVA TTP. These findings could represent a urinary tract stone however she denies dysuria, urinary frequency, hesitation, aurora hematuria, flank pain earlier today and upon my repeat exam CVA are NTTP. Dr. Alvarez in to see pt and reports he does not feel she needs his intervention at this time and has dictated a note to indicate such. With new findings of hematuria and bacteria in blood (which may be from causes already explained) will order U/S to r/o hydronephrosis from urinary tract stone as she continues to report pain. If positive, will consult urology. *If negative and pain still intractable, will admit for pain control through Dr. Schultz as discussed with Dr. Salazar. *If nothing found and pain is controlled, she may be d/c'd and pain may be from corpus luteum or passed stone/ passing stone - needs strainer and pain meds as necessary. Danger s/sx reviewed with pt and she will return to ED if they present. Signed out to Sintia Rowe PA-C pending renal U/S. - Diagnoses Provider Diagnoses: Intrauterine , incidental, RLQ abdominal pain Discharge - Discharge Plan Condition: Stable Disposition: OTHER Discharge Disposition Comment: signed out
--- NOTE | 2017-08-12 11:36 | RAD ---
HISTORY: Right lower quadrant pain, right adnexal pain, positive hCG COMPARISONS: None TECHNIQUE: Multiple transverse and longitudinal ultrasound images were obtained of the pelvis using grayscale and color Doppler imaging using the endovaginal transducer. FINDINGS: UTERUS: The uterus is normal in shape, size, contour, and echotexture. GESTATION: A gestational sac is identified with a yolk sac. No pole is identified.. The mean sac diameter measures 0.72 cm for a gestational age of 5 weeks and 2 days. The CORAL is April 12, 2018. cardiac motion is not detected. Gross movement is not identified. anatomy cannot be assessed secondary to early dates. The amniotic fluid is qualitatively normal. There is a small subchorionic fluid collection measuring 0.2 cm in size.. CUL-DE-SAC: There is no free fluid within the cul-de-sac. RIGHT OVARY: The right ovary measures 3.5 x 2 x 3.1 cm. LEFT OVARY: The left ovary measures 3.5 x 2.9 x 2.6 cm. BLADDER: The bladder is not well visualized. IMPRESSION: 1. SINGLE INTRAUTERINE GESTATION WITHOUT POLE AT 5 WEEKS AND 2 DAYS BY MEAN SAC DIAMETER. RECOMMEND CORRELATION WITH SERIAL BETA-HCG LEVELS AND FOLLOW-UP IMAGING. 2. SMALL SUBCHORIONIC HEMORRHAGE.
--- NOTE | 2017-08-12 13:01 | RAD ---
HISTORY: Right lower quadrant pain, COMPARISONS: None TECHNIQUE: Multiple transverse and longitudinal ultrasound images were obtained of the right lower quadrant using grayscale and color Doppler imaging. FINDINGS: The appendix is not visualized. There is no free or loculated fluid within the right lower quadrant. IMPRESSION: THE APPENDIX IS NOT VISUALIZED. THERE IS NO FREE OR LOCULATED FLUID WITHIN THE RIGHT LOWER QUADRANT.
[2017-08-12] MEDS ORDERED: HYDROmorphone INJ* 2 MG/ML CARPUJECT SYRINGE IV SLOW PU ONE (13:26)
[2017-08-12] MEDS ORDERED: LORazepam INJ* 2 MG/ML 1 ML VIAL IV PUSH ONE (15:31)
[2017-08-12 16:21] LABS: Urine Appearance Clear; Urine Blood 2+ (Negative); Urine Color Yellow; Urine Ketones Negative (Negative); Urine Protein Negative (Negative); Urine Specific Gravity 1.023 (1.010-1.030); Urine Urobilinogen Negative (Negative)
[2017-08-12 16:39] LABS: ABS Basophils 0.1 10^3/ul (0-0.2); ABS Eosinophils 0.7 10^3/ul (0-0.6); ABS Lymphocytes 2.1 10^3/ul (1.0-4.8); ABS Monocytes 0.7 10^3/ul (0-0.8); ABS Neutrophils 3.6 10^3/ul (1.5-7.7); ABS Nucleated RBC 0 10^3/ul; Eosinophil % 9.2 % (0-6); Hematocrit 38 % (35-47); Hemoglobin 12.8 g/dl (12.0-16.0); Lymphocyte % 28.6 % (25-47); Mean Corpuscular HGB Conc 33 g/dl (31-36); Mean Corpuscular Hemoglobin 28 pg (27-31); Mean Corpuscular Volume 84 fL (80-97); Mean Platelet Volume 8 um3 (7.4-10.4); Nucleated Red Blood Cells % 0; Platelet Count 337 10^3/ul (150-450); Red Blood Count 4.57 10^6/ul (4.0-5.4); Red Cell Distribution Width 17 % (10.5-15); White Blood Count 7.2 10^3/ul (3.5-10.8)
[2017-08-12] MEDS ORDERED: diPHENhydraMINE IV* 50 MG/ML 1 ml VIAL (BENADRYL) ONE (18:45)
--- NOTE | 2017-08-12 19:47 | RAD ---
HISTORY: Right lower quadrant pain, hematuria, COMPARISONS: CT dated October 16, 2016 TECHNIQUE: Multiple transverse and longitudinal ultrasound images were obtained of the kidneys using grayscale and color Doppler imaging. FINDINGS: RIGHT KIDNEY: The right kidney is normal in shape, size, contour, and echogenicity. There is no hydronephrosis or nephrolithiasis. The right kidney measures 13.5 x 4.7 x 4.2 cm. LEFT KIDNEY: The left kidney is normal in shape, size, contour, and echogenicity. There is no hydronephrosis or nephrolithiasis. The left kidney measures 13 x 4.9 x 5.6 cm. BLADDER: No images are submitted of the bladder. AORTA AND IVC: No images are submitted of the vasculature. RETROPERITONEUM: Unremarkable. OTHER: None. IMPRESSION: NO HYDRONEPHROSIS OR NEPHROLITHIASIS
--- NOTE | 2017-08-12 20:10 | CONS ---
SURGICAL CONSULTATION FOR THE EMERGENCY ROOM: DATE OF CONSULT: 08/12/17 REASON FOR CONSULT: Right lower quadrant abdominal pain. HISTORY OF PRESENT ILLNESS: This is a 22-year-old female who presented to [facility] emergency room with a history of sudden onset stabbing right lower quadrant abdominal pain beginning at 6 p.m. on the . The patient states prior to that she had felt ill since awakening at 6 a.m., and had experienced multiple episodes of nausea and vomiting with any food that she ate. She did try taking Tums without relief. At some point, she did take her temperature and she noted a temperature of 101 for which she took Tylenol. She reports that she slept poorly due to the pain and finds sitting up in position most comfortable. This morning she presented to the [facility] Emergency Room and she was noted to have right lower quadrant tenderness and was treated with intravenous pain medication which the patient states did not seem to help for more than half an hour. The patient underwent laboratory evaluation revealing normal CBC and normal chemistry except for mild hyponatremia with normal lactic acid, normal lipase, normal c-reactive protein and she was found to be . The patient denies any dysuria or hematuria. She did have a loose bowel movement this morning. She denies any vaginal bleeding or discharge. The patient underwent ultrasounds both transvaginal and abdominal to evaluate for the appendix. On the transvaginal ultrasound, she had a reported single intrauterine gestation without pole at 5 weeks and 2 days by mean sac diameter and a small subchorionic hemorrhage. Appendix ultrasound revealed nonvisualization of the appendix and no evidence of free fluid in the right lower quadrant. The patient was subsequently evaluated by Dr. Schultz from [facility] with whom I spoke earlier. His impression was that she had a corpus luteum cyst. While the intention had been for the patient to be discharged home, due to the patient's pain, it was felt that she was going to need to be admitted. Per theED provider, Dr. Schultz asked for surgical consultation to rule out appendicitis. At present, the patient reports pain in the right lower quadrant. She is not experiencing nausea or vomiting. She last received Dilaudid 1 mg at 1:30 p.m. and she received 1 mg Ativan at 4 p.m. PAST MEDICAL HISTORY: The patient reports a history of asthma only. She denies any hospitalizations and reports that her last emergency room visit was approximately 1 month ago. She reports she does not have a primary care provider. Reviewing her history and the computerized medical record, it was noted that she was seen approximately 1 week ago in the emergency department for an ear problem in that she has had previous admission to [facility] for evaluation of seizures 1 year ago. PAST SURGICAL HISTORY: She denies. MEDICATIONS: 1. Tums p.r.n. 2. Tylenol p.r.n. 3. Oral contraceptive. 4. Inhaler for asthma. ALLERGIES: TRAMADOL, which causes seizures, SHELL FISH unknown allergy and KETOROLAC which causes swelling of the face, lips and throat. FAMILY HISTORY: She denies knowledge of her father's history. Her mother had appendicitis and has heart disease. SOCIAL HISTORY: She is . 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 She is an ex-smoker and reports weekly alcohol use and denies drug use. REVIEW OF SYSTEMS: Constitutional: As above. Cardiac: Denies chest pain, palpitation, shortness of breath, hypertension. Pulmonary: Asthma. Denies current wheezing cough or dyspnea. GI: As above. Denies hepatitis, ulcer disease or inflammatory bowel disease. : As above. Denies kidney stones. Endocrine: Denies thyroid or diabetes symptoms. PHYSICAL EXAM: Temperature 100 degrees Fahrenheit. Pulse 77, respirations 16, blood pressure 103/73, O2 sat 97% on room air. Head is normocephalic and atraumatic. Sclera anicteric and mucous membranes are moist. There is no otorrhea or rhinorrhea. Her neck is symmetrical. Her trachea is midline. There is no palpable cervical lymphadenopathy or masses. Her lungs are clear to auscultation bilaterally. There is no wheezing, rales or rhonchi. Her heart is regular, S1, S2. I appreciate no murmurs. Her abdomen is nondistended and without scars. Bowel sounds are present. It is soft. There is tenderness in the right lower quadrant with no guarding or rigidity. There is no Rovsing sign. Heel strike was negative. There is no costovertebral angle tenderness. Extremities: Warm without cyanosis, clubbing, or edema. Pelvic and rectal as per other providers, was not repeated. DIAGNOSTIC STUDIES/LAB DATA: Repeat WBCs at 4:30 p.m. 08/12/17: WBCs at 7.2, hemoglobin 12.8, platelet count 337, there is no left shift. Chemistries showed C- reactive protein of less than 1. Urinalysis did show 2+ blood, 3+ rbc 's with squamous cell present and 1+ bacteria. No leukocyte esterase or nitrites. Radiographic data as above. IMPRESSION: A 22-year-old female with early and right lower quadrant abdominal pain whose symptoms are atypical for acute appendicitis and laboratory data does not support this diagnosis. There is no indication for surgical intervention. PLAN/RECOMMENDATIONS: Management of her pain as per Dr. Schultz/[facility]. Please re-call as needed. [id number]/CPS #: [id number] ADA
[2017-08-12] MEDS ORDERED: HYDROcodone/ACETAMIN 5-325 MG* 1 TAB PO ONE (20:33)
[2017-08-12 21:16] VITALS: BP 114/69
--- NOTE | 2017-08-12 21:54 | PN ---
Progress Note - Progress Note Date of Service: 08/12/17 Note: patient was a sign out from Ashlee STRATTON at shift change pending US results. US report:NO HYDRONEPHROSIS OR NEPHROLITHIASIS. patient was eating and laying comfortably upon arrival. updated on results. patient's pain is under control at this time. no significant findings. already full work up and consults by Ashlee STRATTON has appointment tomorrow with OBGYN for new . Follow up. given pain medicine to take at home during night. no other concerns at this time. patient agrees and understands, updated on all imaging and results. discussed possibility of corpeus luteum and sources of pain. emergent etiologies ruled out at this time. DIAGNOSIS: abdominal pain intrauterine DISCHARGE condition: stable disposition: home
== END 2017-08-12 21:14 | disposition home or self-care (01) ==
LOC: ED 09:02
DX: Z33.1 Pregnant state, incidental (principal); R10.31 Right lower quadrant pain; R10.9 Unspecified abdominal pain; R11.2 Nausea with vomiting, unspecified
CPT/HCPCS: 36415; 76705; 76775; 76817; 80053; 81003; 81015; 83605; 83690; 83735; 84702; 85025; 86140; 86900; 86901; 87086; 87480; 87491; 87510; 87591; 93005; 96374; 96375; 99284; J0780; J1170; J1200; J2060; J2270

== ENCOUNTER 2017-08-26 09:55 | Emergency (ER) | payer OTHER ==
--- NOTE | 2017-08-26 10:15 | ED ---
Abdominal Pain/Female - HPI Summary HPI Summary: Patient presents to the ED 1 day status post suction curretage 7 weeks along with severe 10 out of 10 abdominal pain. She states she passed a blood clot over the size of a quarter this morning and has been having pain ever since. She was able to call [facility] and they suggested she come to the ED for evaluation. She denies any bleeding currently or other vaginal discharge. Pain is cramping and radiates to the bilateral flanks. Denies any urinary symptoms. Symptoms are aggravated by nothing and relieved with nothing. She is extremely tearful on exam and is a poor historian. She was seen recently here for right lower quadrant pain with several imaging studies and other labs obtained on that day. She denies any fevers, sweats, chills. Denies headache. She has been otherwise healthy, allergic to Toradol and tramadol. - History of Current Complaint Chief Complaint: EDOBProblems Stated Complaint: ABD PAIN Time Seen by Provider: 08/26/17 10:07 Hx Obtained From: Patient Hx Last Menstrual Period: 06/27/17 ?: No Onset/Duration: Sudden Onset Severity Initially: Moderate Severity Currently: Moderate Pain Intensity: 8 Pain Scale Used: 0-10 Numeric Location: Other - Diffuse abdominal pain with radiation to the back Radiates: Yes Radiates to: Back Character: Cramping Aggravating Factor(s): Nothing Alleviating Factor(s): Nothing Allergies/Adverse Reactions: Allergies Allergy/AdvReac Type Severity Reaction Status Date / Time MS Tramadol [Tramadol] Allergy Severe seizures Verified 08/06/17 07:56 MS Shellfish Allergy Allergy Unknown Verified 08/06/17 07:56 [Shellfish Allergy] Reaction Details MS Ketorolac Tromethamine AdvReac Intermediate Swelling Verified 08/06/17 07:56 [From Toradol] Of Face,Lips,& Throat PMH/Surg Hx/FS Hx/Imm Hx Previously Healthy: Yes Endocrine/Hematology History: Denies: Hx Anticoagulant Therapy, Hx Blood Disorders, Hx Diabetes, Hx Thyroid Disease, Hx Anemia, Hx Unexplained Bleeding Cardiovascular History: Denies: Hx Cardiac Arrest, Hx Embolism, Hx Hypertension, Hx Pacemaker/ICD Respiratory History: Reports: Hx Asthma - A CHILD, NOT NOW Denies: Hx Chronic Obstructive Pulmonary Disease (COPD), Hx Pneumonia GI History: Denies: Hx Cirrhosis, Hx Crohn's Disease, Hx Diverticulosis, Hx Gall Bladder Disease, Hx Gastroesophageal Reflux Disease, Hx Gastrointestinal Bleed, Hx Hiatal Hernia, Hx Irritable Bowel, Hx Obstructive Bowel, Hx Ulcer History: Denies: Hx Renal Disease Sensory History: Denies: Hx Contacts or Glasses, Hx Hearing Aid, Hx Hearing Problem Opthamlomology History: Denies: Hx Contacts or Glasses Neurological History: Reports: Hx Seizures - Pt has had history of sezures when Hypoglycemic Psychiatric History: Reports: Hx Anxiety, Hx Depression, Hx Panic Disorder, Hx Inpatient Treatment, Hx Schizophrenia, Other Psychiatric Issues/Disorders - PANIC DISORDER Denies: Hx Eating Disorder, Hx of Violent Episodes Against Others - Immunization History Date of Tetanus Vaccine: utd Date of Influenza Vaccine: 2016 Infectious Disease History: No Infectious Disease History: Denies: Hx Clostridium Difficile, Hx Hepatitis, Hx Human Immunodeficiency Virus (HIV), Hx of Known/Suspected MRSA, Hx Shingles, Hx Tuberculosis, Hx Known/ Suspected VRE, Hx Known/Suspected VRSA, History Other Infectious Disease, Traveled Outside the [place] in Last 30 Days - Family History Known Family History: Positive: Cardiac Disease - Mother had an [place], Other - father -schizophrenia Negative: Diabetes Family History: Biological father - Schizophrenia - Social History Occupation: Unemployed Lives: With Family Alcohol Use: Weekly Hx Substance Use: Yes Substance Use Type: Reports: None Substance Use Comment - Amount & Last Used: denies Hx Tobacco Use: No Smoking Status (MU): Former Smoker Type: Cigarettes Length of Time of Smoking/Using Tobacco: 1 year Have You Smoked in the Last Year: No Review of Systems Constitutional: Negative Negative: Fever, Chills, Fatigue Eyes: Negative Cardiovascular: Negative Positive: Abdominal Pain Genitourinary: Negative Positive: no symptoms reported, see HPI Musculoskeletal: Negative Skin: Negative Positive: Anxious All Other Systems Reviewed And Are Negative: Yes Physical Exam Triage Information Reviewed: Yes Vital Signs On Initial Exam: Initial Vitals Temp Pulse Resp BP Pulse Ox 99.8 F 98 18 129/67 98 08/26/17 09:57 08/26/17 09:57 08/26/17 09:57 08/26/17 09:57 08/26/17 09:57 Vital Signs Reviewed: Yes Appearance: Positive: Pain Distress Skin: Positive: Skin Color Reflects Adequate Perfusion Head/Face: Positive: Normal Head/Face Inspection Eyes: Positive: Normal, PADMINI Neck: Positive: Supple, No Lymphadenopathy Respiratory/Lung Sounds: Positive: Clear to Auscultation, Breath Sounds Present Cardiovascular: Positive: RRR, Pulses are Symmetrical in both Upper and Lower Extremities Abdomen Description: Positive: Other: - Tenderness throughout the lower abdomen Bowel Sounds: Positive: Present Pelvic Exam: Positive: other - Not performed no active bleeding Musculoskeletal: Positive: Strength/ROM Intact Neurological: Positive: Speech Normal Psychiatric: Positive: Affect/Mood Appropriate AVPU Assessment: Alert Diagnostics - Vital Signs Vital Signs Temp Pulse Resp BP Pulse Ox 08/26/17 09:57 99.8 F 98 18 129/67 98 - Laboratory Result Diagrams: 08/26/17 10:20 08/26/17 10:20 Lab Statement: Any lab studies that have been ordered have been reviewed, and results considered in the medical decision making process. Abdominal Pain Fem Course/Dx - Course Course Of Treatment: During the course of treatment, the patient was evaluated for 10 at 10 pain status post curettage and suction . She was not placed on any antibiotics or pain control. Labs obtained and unremarkable. She is not experiencing any active bleed. Dr. Kelley ([facility]) called who suggested doxycycline 100 mg twice a day 5 days. I have discussed ultrasound with Dr. Kelley in the patient. Due to no active bleed, I believe ultrasound would be nondiagnostic for anything and uterine perforation is most likely out of the window of symptoms. On reevaluation, patient is requesting discharge and she is experiencing X Solange attack. I have offered her some ibuprofen for her pain she is a chronic opioid user/abuser. Again she is angry with this and would like to be discharged at this time. Pelvic exam not performed due to patient's request to be discharged. Doxycycline sent to her pharmacy and she is okay for discharge at this time. - Diagnoses Provider Diagnoses: Abdominal pain Discharge - Discharge Plan Condition: Stable Disposition: HOME Patient Education Materials: Dilation and Curettage (DC) Referrals: No Primary Care Phys,NOPCP [Primary Care Provider] - Additional Instructions: Ibuprofen 600 mg 3 times daily Please follow up with [facility] tomorrow Heat to the abdomen
[2017-08-26] MEDS ORDERED: Ondansetron INJ* 2 MG/ML VIAL IV ONE (10:16)
[2017-08-26] MEDS ORDERED: Morphine INJ* 4 MG/ML 1 ML CARPUJECT IV ONE (10:16)
[2017-08-26 10:29] LABS: ABS Basophils 0.1 10^3/ul (0-0.2); ABS Eosinophils 0.7 10^3/ul (0-0.6); ABS Lymphocytes 1.2 10^3/ul (1.0-4.8); ABS Monocytes 0.6 10^3/ul (0-0.8); ABS Neutrophils 2.4 10^3/ul (1.5-7.7); ABS Nucleated RBC 0 10^3/ul; Eosinophil % 13.7 % (0-6); Hematocrit 42 % (35-47); Mean Corpuscular HGB Conc 33 g/dl (31-36); Mean Corpuscular Hemoglobin 29 pg (27-31); Mean Corpuscular Volume 86 fL (80-97); Mean Platelet Volume 8 um3 (7.4-10.4); Nucleated Red Blood Cells % 0.1; Platelet Count 263 10^3/ul (150-450); Red Blood Count 4.88 10^6/ul (4.0-5.4); Red Cell Distribution Width 17 % (10.5-15)
[2017-08-26 10:34] VITALS: BP 109/70
[2017-08-26 10:40] LABS: INR 1.02 (0.77-1.02)
[2017-08-26 10:43] LABS: EGFR Non-African American 110.1 (>60)
[2017-08-26] MEDS ORDERED: Ibuprofen TAB* 600 MG PO ONE (10:53)
[2017-08-26] MEDS ORDERED: Ibuprofen TAB* 600 MG ONE (10:55)
== END 2017-08-26 10:57 | disposition home or self-care (01) ==
LOC: ED 09:55
DX: R10.9 Unspecified abdominal pain (principal); Z98.890 Other specified postprocedural states; Z87.891 Personal history of nicotine dependence
CPT/HCPCS: 36415; 80053; 83605; 85025; 85610; 99283; A9270-GY; J2270; J2405

== ENCOUNTER 2017-09-11 14:08 | Emergency (ER) | payer OTHER ==
[2017-09-11] MEDS ORDERED: Albuterol 2.5 MG/3 ML NEB.SOL* (0.083%) INH ONE (14:09)
[2017-09-11] MEDS ORDERED: Ipratropium 0.5MG/2.5ML NEB* 0.5 MG/2.5 ML NEB.SOLN INH ONE (14:09)
[2017-09-11 14:26] VITALS: BP 126/82
--- NOTE | 2017-09-11 14:37 | UC ---
Respiratory Complaint HPI - HPI Summary HPI Summary: Pt presents with SOB and chest tightness. She tells me that her apartment building is undergoing construction and there is a lot of dust flying around. She has a history of asthma and recently ran out of her symbicort and albuterol inhalers. She believes her symptoms today are due to the construction at her house. Has been feeling well otherwise and denies fevers, chills, sore throat, headache, dizziness, or chest pain. - History of Current Complaint Chief Complaint: UCAsthma Stated Complaint: ASTHMA ATTACK Time Seen by Provider: 09/11/17 14:23 Hx Obtained From: Patient Hx Last Menstrual Period: 3 days ago Onset/Duration: Sudden Onset Pain Intensity: 0 - Allergies/Home Medications Allergies/Adverse Reactions: Allergies Allergy/AdvReac Type Severity Reaction Status Date / Time ketorolac Allergy Severe Swelling Verified 09/11/17 14:16 Of Face,Lips,& Throat shellfish derived Allergy Severe Anaphylatic Verified 09/11/17 14:26 Shock tramadol Allergy Severe See Comment Verified 09/11/17 14:16 Home Medications: Home Medications Albuterol HFA INHALER* [Ventolin HFA Inhaler*] 2 puff INH Q4H PRN 09/11/17 [ History Confirmed 09/11/17] PMH/Surg Hx/FS Hx/Imm Hx Previously Healthy: Yes Respiratory History: Asthma Other History Of: Negative For: Anticoagulant Therapy - Surgical History Surgical History: None - Family History Known Family History: Positive: Cardiac Disease - Mother had an [place], Other - father -schizophrenia Negative: Diabetes Family History: Biological father - Schizophrenia - Social History Occupation: Employed Full-time Lives: With Family Alcohol Use: Weekly Substance Use Type: None Substance Use Comment - Amount & Last Used: denies Smoking Status (MU): Never Smoked Tobacco Type: Cigarettes Length of Time of Smoking/Using Tobacco: 1 year Have You Smoked in the Last Year: No Household Exposure Type: Cigarettes - Immunization History Most Recent Influenza Vaccination: fall 2016 Most Recent Tetanus Shot: UTD Most Recent Pneumonia Vaccination: n/a Review of Systems Constitutional: Negative Skin: Negative Eyes: Negative ENT: Negative Respiratory: Shortness Of Breath Cardiovascular: Negative Gastrointestinal: Negative Neurological: Negative Psychological: Negative All Other Systems Reviewed And Are Negative: Yes Physical Exam Triage Information Reviewed: Yes Appearance: Well-Appearing, No Pain Distress, Well-Nourished Vital Signs: Initial Vital Signs Temp 98.1 F 09/11/17 14:22 Pulse 82 09/11/17 14:22 Resp 34 09/11/17 14:22 BP 126/82 09/11/17 14:22 Pulse Ox 96 09/11/17 14:22 Vital Signs Reviewed: Yes Eyes: Positive: Conjunctiva Clear. Negative: Conjunctiva Inflamed, Discharge ENT: Positive: Hearing grossly normal, Pharynx normal, TMs normal, Uvula midline. Negative: Pharyngeal erythema, Nasal congestion, Nasal drainage, TM bulging, TM dull, TM red, Tonsillar swelling, Tonsillar exudate, Hoarse voice, Sinus tenderness Neck: Positive: Supple, Nontender, No Lymphadenopathy Respiratory: Positive: Chest non-tender, Lungs clear, Normal breath sounds, No respiratory distress, No accessory muscle use, Wheezing - Mild throughout. Negative: Crackles Cardiovascular: Positive: RRR, No Murmur, Pulses Normal Neurological: Positive: Alert Psychological: Positive: Age Appropriate Behavior Skin: Negative: rashes UC Diagnostic Evaluation - Laboratory O2 Sat by Pulse Oximetry: 96 Re-Evaluation - Re-Evaluation First Eval Re-Evaluation Time: 15:00 Change: Improved Comment: Duoneb with significant improvement. No lung wheezes. Pt reports feeling 100% better. Respiratory Course/Dx - Course Course Of Treatment: Pt significantly improved after one course of nebulizer treatment. Will dc with a refill for her albuterol and symbicort. - Differential Dx/Diagnosis Provider Diagnoses: Asthma exacerbation Discharge - Discharge Plan Condition: Stable Disposition: HOME Prescriptions: Albuterol HFA INHALER* [Ventolin HFA Inhaler*] 2 puff INH Q4H PRN #1 mdi PRN Reason: Wheezing Budesonide/Formote 80/4.5(NF) [Symbicort 80/4.5 (NF)] 2 puff INH DAILY #1 aer Patient Education Materials: Asthma (DC) Referrals: No Primary Care Phys,NOPCP [Primary Care Provider] - Additional Instructions: If you develop a fever, shortness of breath, chest pain, new or worsening symptoms - please call your PCP or go to the ED.
== END 2017-09-11 14:42 | disposition home or self-care (01) ==
LOC: UCEAST 14:08
DX: J45.901 Unspecified asthma with (acute) exacerbation (principal); Z88.5 Allergy status to narcotic agent; Z87.891 Personal history of nicotine dependence
CPT/HCPCS: 99213; G0463

== ENCOUNTER 2017-10-12 21:38 | Emergency (ER) | payer OTHER ==
[2017-10-12] MEDS ORDERED: Valproic Acid IV(*) 1,000 MG in NS 0.9% 100 ML* 100 ML IVPB ONE (21:39)
[2017-10-12] MEDS ORDERED: NS 0.9% 1000 ML* 1,000 ML IV ONE (21:39)
[2017-10-12] MEDS ORDERED: LORazepam INJ* 2 MG/ML 1 ML VIAL IV ONE (21:39)
[2017-10-12] MEDS ORDERED: Morphine INJ* 4 MG/ML 1 ML SYRINGE (NEW SYRINGE VERSION) IV ONE (22:35)
[2017-10-12 22:36] LABS: ABS Basophils 0.1 10^3/ul (0-0.2); ABS Eosinophils 0.7 10^3/ul (0-0.6); ABS Lymphocytes 1.6 10^3/ul (1.0-4.8); ABS Monocytes 0.6 10^3/ul (0-0.8); ABS Neutrophils 3.9 10^3/ul (1.5-7.7); ABS Nucleated RBC 0 10^3/ul; Eosinophil % 10.8 % (0-6); Hematocrit 37 % (35-47); Hemoglobin 12.3 g/dl (12.0-16.0); Mean Corpuscular HGB Conc 33 g/dl (31-36); Mean Corpuscular Hemoglobin 29 pg (27-31); Mean Corpuscular Volume 87 fL (80-97); Mean Platelet Volume 8.4 um3 (7.4-10.4); Nucleated Red Blood Cells % 0; Platelet Count 310 10^3/ul (150-450); Red Blood Count 4.25 10^6/ul (4.0-5.4); Red Cell Distribution Width 16 % (10.5-15); White Blood Count 6.9 10^3/ul (3.5-10.8)
[2017-10-12 22:53] LABS: EGFR Non-African American 101.3 (>60)
[2017-10-12] MEDS ORDERED: Acetaminophen TAB* 325 MG PO ONE (22:54)
[2017-10-12] MEDS ORDERED: ALPRAZolam TAB* 0.25 MG PO ONE (23:30)
[2017-10-12 23:39] LABS: Urine Appearance Cloudy; Urine Blood 3+ (Negative); Urine Color Yellow; Urine Ketones Trace (Negative); Urine Protein 2+(100 mg/dL) (Negative); Urine Specific Gravity 1.023 (1.010-1.030); Urine Urobilinogen Negative (Negative)
[2017-10-12 23:53] VITALS: BP 115/70
--- NOTE | 2017-10-13 20:03 | ED ---
Fritz Ronquillo Sixian, scribed for Claudio Kapoor MD on 10/12/17 at 2148 . Complex/Multi-Sys Presentation - HPI Summary HPI Summary: This patient is a 22 year old F BIBA to ED with a chief complaint of seizure disorder since 2030 today. Each seizure episode lasts about 30 seconds each, she had a total of 6 seizures today. She had one seizure in the ambulance which lasted 20 seconds and one more at [facility] [place]. Currently the pt is alert and awake. The patient rates the pain 0/10 in severity. Pt states prior to seizure activity she was feeling anxiety and stress while at work. Pt states she also has been off of her seizure and anxiety medication for several years. Pt denies any recent alcohol or drug use. - History Of Current Complaint Chief Complaint: EDSeizure Time Seen by Provider: 10/12/17 21:39 Hx Obtained From: Patient Onset/Duration: Sudden Onset, Lasting Hours, Still Present Timing: Intermittent, Lasting: - 30 seconds Aggravating Factor(s): nothing Alleviating Factor(s): nothing - Allergies/Home Medications Allergies/Adverse Reactions: Allergies Allergy/AdvReac Type Severity Reaction Status Date / Time ketorolac Allergy Severe Swelling Verified 09/11/17 14:16 Of Face,Lips,& Throat shellfish derived Allergy Severe Anaphylatic Verified 09/11/17 14:26 Shock tramadol Allergy Severe See Comment Verified 09/11/17 14:16 PMH/Surg Hx/FS Hx/Imm Hx Endocrine/Hematology History: Denies: Hx Anticoagulant Therapy, Hx Blood Disorders, Hx Diabetes, Hx Thyroid Disease, Hx Anemia, Hx Unexplained Bleeding Cardiovascular History: Denies: Hx Cardiac Arrest, Hx Embolism, Hx Hypertension, Hx Pacemaker/ICD Respiratory History: Reports: Hx Asthma Denies: Hx Chronic Obstructive Pulmonary Disease (COPD), Hx Pneumonia GI History: Denies: Hx Cirrhosis, Hx Crohn's Disease, Hx Diverticulosis, Hx Gall Bladder Disease, Hx Gastroesophageal Reflux Disease, Hx Gastrointestinal Bleed, Hx Hiatal Hernia, Hx Irritable Bowel, Hx Obstructive Bowel, Hx Ulcer History: Denies: Hx Renal Disease Sensory History: Denies: Hx Contacts or Glasses, Hx Hearing Aid, Hx Hearing Problem Opthamlomology History: Denies: Hx Contacts or Glasses Neurological History: Reports: Hx Seizures - Pt has had history of sezures when Hypoglycemic Psychiatric History: Reports: Hx Anxiety, Hx Depression, Hx Panic Disorder, Hx Inpatient Treatment, Hx Schizophrenia, Other Psychiatric Issues/Disorders - PANIC DISORDER Denies: Hx Eating Disorder, Hx of Violent Episodes Against Others - Immunization History Date of Tetanus Vaccine: utd Date of Influenza Vaccine: 2016 Infectious Disease History: No Infectious Disease History: Denies: Hx Clostridium Difficile, Hx Hepatitis, Hx Human Immunodeficiency Virus (HIV), Hx of Known/Suspected MRSA, Hx Shingles, Hx Tuberculosis, Hx Known/ Suspected VRE, Hx Known/Suspected VRSA, History Other Infectious Disease, Traveled Outside the [place] in Last 30 Days - Family History Known Family History: Positive: Cardiac Disease - Mother had an [place], Other - father -schizophrenia Negative: Diabetes Family History: Biological father - Schizophrenia - Social History Alcohol Use: Weekly Hx Substance Use: Yes Substance Use Type: Reports: None Substance Use Comment - Amount & Last Used: denies Hx Tobacco Use: No Smoking Status (MU): Never Smoked Tobacco Type: Cigarettes Length of Time of Smoking/Using Tobacco: 1 year Have You Smoked in the Last Year: No Review of Systems Negative: Chills Neurological: Other - seizures All Other Systems Reviewed And Are Negative: Yes Physical Exam - Summary Physical Exam Summary: Appearance: Well-appearing, no distress, Well-nourished Skin: Warm, color reflects adequate perfusion Head: Normal Head/Face inspection Eyes: Conjunctiva clear. EOMI, PERRLA ENT: Normal inspection Neck: Supple, no nodes, Respiratory: Lungs clear, Normal breath sounds, no respiratory distress Cardio: RRR, No murmur, pulses normal, brisk capillary refill Abdomen: soft, nontender, no guarding, no rebound Bowel sounds: present Musculoskeletal: Strength Intact/ ROM intact. No calf tenderness. No edema. Neuro: Alert, muscle tone normal, facial symmetry, speech normal, sensory/motor intact; CN intact II-XII Psychological: anxious Triage Information Reviewed: Yes Vital Signs On Initial Exam: Initial Vitals Temp Pulse Resp BP Pulse Ox 97.4 F 123 26 117/69 96 10/12/17 21:38 10/12/17 21:38 10/12/17 21:38 10/12/17 21:38 10/12/17 21:38 Vital Signs Reviewed: Yes Diagnostics - Vital Signs Vital Signs Temp Pulse Resp BP Pulse Ox 10/12/17 21:38 97.4 F 123 26 117/69 96 - Laboratory Lab Results: Lab Results 10/12/17 Range/Units 22:22 WBC 6.9 (3.5-10.8) 10^3/ul RBC 4.25 (4.0-5.4) 10^6/ul Hgb 12.3 (12.0-16.0) g/dl Hct 37 (35-47) % MCV 87 (80-97) fL MCH 29 (27-31) pg MCHC 33 (31-36) g/dl RDW 16 H (10.5-15) % Plt Count 310 (150-450) 10^3/ul MPV 8.4 (7.4-10.4) um3 Neut % (Auto) 56.1 (38-83) % Lymph % (Auto) 23.0 L (25-47) % Sampson % (Auto) 9.0 H (0-7) % Eos % (Auto) 10.8 H (0-6) % Baso % (Auto) 1.1 (0-2) % Absolute Neuts (auto) 3.9 (1.5-7.7) 10^3/ul Absolute Lymphs (auto) 1.6 (1.0-4.8) 10^3/ul Absolute Monos (auto) 0.6 (0-0.8) 10^3/ul Absolute Eos (auto) 0.7 H (0-0.6) 10^3/ul Absolute Basos (auto) 0.1 (0-0.2) 10^3/ul Absolute Nucleated RBC 0 10^3/ul Nucleated RBC % 0 Result Diagrams: 10/12/17 22:22 10/12/17 22:22 Lab Statement: Any lab studies that have been ordered have been reviewed, and results considered in the medical decision making process. Re-Evaluation - Re-Evaluation First Eval Re-Evaluation Time: 22:36 Change: Improved Comment: Pt now complaining of lower abdominal pain and cramping. Pt states she has been having this intermittent discomfort for months. Pt states she was also having this discomfort prior to her seizure activity. Second Eval Re-Evaluation Time: 23:27 Change: Improved - Pt seizures resolved. pt states she is now having more anxiety from being in the hospital and is requesting d/c home. pt AOOX3; pt CN exam intact II-XII; pt loaded with depakote and givcen anxiolytic. Complex Multi-Symp Course/Dx Assessment/Plan: Pt with two episodes of seizure activity in the ED last less than 15 seconds. Pt with no postictal period. Pt answering questions appropriately and following copmmands immediately after episodes. pt with atypical seizure activity. pt symptoms likely exacerbated by anxiety/stress. Plan for d/c home with f/u with her PCP. - Diagnoses Provider Diagnoses: Seizure, Anxiety Discharge - Sign-Out/Discharge Documenting (check all that apply): Discharge - Discharge Plan Condition: Improved Disposition: HOME Patient Education Materials: Recurrent Seizures in Adults (ED), Anxiety (ED) Referrals: No Primary Care Phys,NOPCP [Primary Care Provider] - Additional Instructions: RETURN TO THE EMERGENCY DEPARTMENT FOR CHANGING OR WORSENING SYMPTOMS. - Billing Disposition and Condition Condition: IMPROVED Disposition: HOME The documentation as recorded by the Fritz long Sixian accurately reflects the service I personally performed and the decisions made by Antwon christina Omari A, MD.
== END 2017-10-13 00:03 | disposition home or self-care (01) ==
LOC: ED 21:38
DX: G40.909 Epilepsy, unspecified, not intractable, without status epilepticus (principal); J45.909 Unspecified asthma, uncomplicated; F41.0 Panic disorder [episodic paroxysmal anxiety]; F32.9 Major depressive disorder, single episode, unspecified; Z88.5 Allergy status to narcotic agent
CPT/HCPCS: 36415; 80053; 80307; 80320; 81003; 81015; 83735; 85025; 87086; 96365; 96375; 99283; A9270-GY; G0480; J2060

== ENCOUNTER 2017-12-11 16:08 | Emergency (ER) | payer OTHER ==
[2017-12-11] MEDS ORDERED: NS 0.9% 1000 ML* 1,000 ML IV ONE (17:03)
[2017-12-11] MEDS ORDERED: Metoclopramide IV* 5 MG/ML 2 ML VIAL IV ONE (17:03)
[2017-12-11 17:28] LABS: EGFR Non-African American 122.6 (>60)
[2017-12-11 18:01] VITALS: BP 106/71
--- NOTE | 2017-12-11 18:20 | ED ---
Yehuda Ronquillo Gabriel, scribed for Jean-Paul Salazar MD on 12/11/17 at 1715 . GI/ HPI - HPI Summary HPI Summary: This patient is a 22 year old F presenting to [facility] with a chief complaint of vomiting that began 2 days ago, pt states she has vomiting 10-15 times today. The patient rates the pain 3/10 in severity. Patient reports nausea, diarrhea, ABD pain, and intermittent fever. LNMP 3 weeks ago denies any chance of . - History of Current Complaint Chief Complaint: EDAbdPain Time Seen by Provider: 12/11/17 16:52 Stated Complaint: VOMITING Hx Obtained From: Patient Hx Last Menstrual Period: 3 days ago Onset/Duration: Still Present Timing: Constant Severity: Moderate Current Severity: Moderate Pain Intensity: 3 Location of Pain: Diffuse Associated Signs and Symptoms: Positive: Other: - ABD pain, fever, n/v/d - Additional Pertinent History Primary Care Physician: MARIBEL - Allergy/Home Medications Allergies/Adverse Reactions: Allergies Allergy/AdvReac Type Severity Reaction Status Date / Time ketorolac Allergy Severe Swelling Verified 12/11/17 16:13 Of Face,Lips,& Throat shellfish derived Allergy Severe Anaphylatic Verified 12/11/17 16:13 Shock tramadol Allergy Severe See Comment Verified 12/11/17 16:13 PMH/Surg Hx/FS Hx/Imm Hx Endocrine/Hematology History: Denies: Hx Anticoagulant Therapy, Hx Blood Disorders, Hx Diabetes, Hx Thyroid Disease, Hx Anemia, Hx Unexplained Bleeding Cardiovascular History: Denies: Hx Cardiac Arrest, Hx Embolism, Hx Hypertension, Hx Pacemaker/ICD Respiratory History: Reports: Hx Asthma Denies: Hx Chronic Obstructive Pulmonary Disease (COPD), Hx Pneumonia GI History: Denies: Hx Cirrhosis, Hx Crohn's Disease, Hx Diverticulosis, Hx Gall Bladder Disease, Hx Gastroesophageal Reflux Disease, Hx Gastrointestinal Bleed, Hx Hiatal Hernia, Hx Irritable Bowel, Hx Obstructive Bowel, Hx Ulcer History: Denies: Hx Renal Disease Sensory History: Denies: Hx Contacts or Glasses, Hx Hearing Aid, Hx Hearing Problem Opthamlomology History: Denies: Hx Contacts or Glasses Neurological History: Reports: Hx Seizures - Pt has had history of sezures when Hypoglycemic Psychiatric History: Reports: Hx Anxiety, Hx Depression, Hx Panic Disorder, Hx Inpatient Treatment, Hx Schizophrenia, Other Psychiatric Issues/Disorders - PANIC DISORDER Denies: Hx Eating Disorder, Hx of Violent Episodes Against Others - Immunization History Date of Tetanus Vaccine: utd Date of Influenza Vaccine: 2017 Infectious Disease History: No Infectious Disease History: Denies: Hx Clostridium Difficile, Hx Hepatitis, Hx Human Immunodeficiency Virus (HIV), Hx of Known/Suspected MRSA, Hx Shingles, Hx Tuberculosis, Hx Known/ Suspected VRE, Hx Known/Suspected VRSA, History Other Infectious Disease, Traveled Outside the [place] in Last 30 Days - Family History Known Family History: Positive: Cardiac Disease - Mother had an [place], Other - father -schizophrenia Negative: Diabetes Family History: Biological father - Schizophrenia - Social History Alcohol Use: Weekly Hx Substance Use: Yes Substance Use Type: Reports: None Substance Use Comment - Amount & Last Used: denies Hx Tobacco Use: No Smoking Status (MU): Never Smoked Tobacco Type: Cigarettes Length of Time of Smoking/Using Tobacco: 1 year Have You Smoked in the Last Year: No Review of Systems Positive: Fever Positive: Abdominal Pain, Vomiting, Diarrhea, Nausea All Other Systems Reviewed And Are Negative: Yes Physical Exam - Summary Physical Exam Summary: VITAL SIGNS: Reviewed. GENERAL: Patient is a well-developed and nourished female who is lying comfortable in the stretcher. Patient is not in any acute respiratory distress. Pt is anxious HEAD AND FACE: No signs of trauma. No ecchymosis, hematomas or skull depressions. No sinus tenderness. EYES: PERRLA, EOMI x 2, No injected conjunctiva, no nystagmus. EARS: Hearing grossly intact. Ear canals and tympanic membranes are within normal limits. MOUTH: Oropharynx within normal limits. NECK: Supple, trachea is midline, no adenopathy, no JVD, no carotid bruit, no c- spine tenderness, neck with full ROM. CHEST: Symmetric, no tenderness at palpation LUNGS: Clear to auscultation bilaterally. No wheezing or crackles. CVS: Regular rate and rhythm, S1 and S2 present, no murmurs or gallops appreciated. ABDOMEN: Soft, non-tender. No signs of distention. No rebound no guarding, and no masses palpated. Bowel sounds are normal. EXTREMITIES: FROM in all major joints, no edema, no cyanosis or clubbing. NEURO: Alert and oriented x 3. No acute neurological deficits. Speech is normal and follows commands. SKIN: Dry and warm Triage Information Reviewed: Yes Vital Signs On Initial Exam: Initial Vitals Temp Pulse Resp BP Pulse Ox 99.0 F 96 16 124/75 99 12/11/17 16:10 12/11/17 16:10 12/11/17 16:10 12/11/17 16:10 12/11/17 16:10 Vital Signs Reviewed: Yes Diagnostics - Vital Signs Vital Signs Temp Pulse Resp BP Pulse Ox 12/11/17 16:10 99.0 F 96 16 124/75 99 - Laboratory Lab Results: Lab Results 12/11/17 Range/Units 17:01 Sodium 134 L (139-145) mmol/L Potassium 3.9 (3.5-5.0) mmol/L Chloride 99 L (101-111) mmol/L Carbon Dioxide 26 (22-32) mmol/L Anion Gap 9 (2-11) mmol/L BUN 10 (6-24) mg/dL Creatinine 0.61 (0.51-0.95) mg/dL Est GFR ( Amer) 157.7 (>60) Est GFR (Non-Af Amer) 122.6 (>60) BUN/Creatinine Ratio 16.4 (8-20) Glucose 100 (70-100) mg/dL Calcium 9.0 (8.6-10.3) mg/dL Total Bilirubin 0.50 (0.2-1.0) mg/dL AST 28 (13-39) U/L ALT 16 (7-52) U/L Alkaline Phosphatase 60 (34-104) U/L C-Reactive Protein < 1.00 (< 5.00) mg/L Total Protein 7.4 (6.4-8.9) g/dL Albumin 4.4 (3.2-5.2) g/dL Globulin 3.0 (2-4) g/dL Albumin/Globulin Ratio 1.5 (1-3) Lipase 12 (11.0-82.0) U/L Beta HCG, Quant < 0.60 mIU/mL Result Diagrams: 12/11/17 17:01 Lab Statement: Any lab studies that have been ordered have been reviewed, and results considered in the medical decision making process. GIGU Course/Dx - Course Assessment/Plan: This patient is a 22-year-old female who presents to the emergency room with a chief complaint of nausea and vomiting. She reports that the symptoms started yesterday as severe with a slight diarrhea. He is aware we diarrhea with no blood or mucus. Denies any recent traveling or antibiotic use. Today she continued to have nausea and vomiting therefore she decided to come to the emergency room for further workup and management. In the ED course the patient was given IV fluids and Reglan for nausea and vomiting. Blood work without any significant abnormality. test is negative. She denies any vaginal discharge or bleeding. Blood test results shows that the patients sodium is 134 and chloride 99. The beta hCG is negative. At this time or the test results are not available. The patient was given IV fluids and Reglan for nausea and vomiting. Patient reports that she needs to go home because her dog was hit by a car therefore she was to go home. The patient would be signing AGAINST MEDICAL ADVICE. I extensively discussed with the patient the benefits and risk of leaving AMA. I also discussed the alternatives to leaving AMA, however, the patient still insist to leave the hospital AMA.. The primary nurse and the charge nurse also strongly recommended that the patient should not leave AMA. Patient understands the risk of leaving AMA, which includes but is not restricted to . Patient is Alert and oriented times three and patient verbalizes understanding. Patient has full capacity and is cognitively intact. Patient signed the AMA form. Patient was also advised to return to ED if he changes his mind or if the symptoms worsen or other symptoms appear. Patient understands and agrees. - Diagnoses Differential Diagnoses - Female: Gastritis, Gastroenteritis (Viral), Vomiting Provider Diagnoses: Left against medical advice, Vomiting Discharge - Sign-Out/Discharge Documenting (check all that apply): Discharge/Admit/Transfer - Discharge Plan Condition: Fair Disposition: AGAINST MEDICAL ADVICE Prescriptions: Ondansetron TAB* [Zofran 4 MG Tab*] 4 mg PO Q6H PRN #10 tab PRN Reason: Vomiting Referrals: No Primary Care Phys,NOPCP [Primary Care Provider] - - Billing Disposition and Condition Condition: FAIR Disposition: AMA The documentation as recorded by the Yehuda long Gabriel accurately reflects the service I personally performed and the decisions made by me, Jean-Paul Salazar MD.
== END 2017-12-11 17:59 | disposition left against medical advice (07) ==
LOC: ED 16:08
DX: R11.2 Nausea with vomiting, unspecified (principal); R19.7 Diarrhea, unspecified; R50.9 Fever, unspecified; R10.9 Unspecified abdominal pain; J45.909 Unspecified asthma, uncomplicated; R56.9 Unspecified convulsions; F41.0 Panic disorder [episodic paroxysmal anxiety]; F32.9 Major depressive disorder, single episode, unspecified; F20.9 Schizophrenia, unspecified; Z88.5 Allergy status to narcotic agent
CPT/HCPCS: 36415; 80053; 83690; 84702; 86140; 96374; 99283; J2765

== ENCOUNTER 2018-01-29 10:22 | Emergency (ER) | payer OTHER ==
--- NOTE | 2018-01-29 11:27 | ED ---
Neck Pain - HPI Summary HPI Summary: This pt is a 22 y/o female [facility] c/o neck pain s/p possible seizure today at approx 10:00. Pt reports she has a hx of seizures and has had 3 seizures since she was 14 years old, her last one was 4 months ago while at work. Pt states this morning she was getting into the bathtub when she woke up on the bathroom floor at approximately 10:00. She notes she had vomited and had epistaxis when she woke up. She thinks she might have had a seizure and fell. Pt notes she landed outside the bathtub. Currently c/o neck pain, headache, and "feeling out of it." She describes her neck pain as very sharp, it is aggravated with movement and states "I can't even keep my head straight." Pt took Naproxen 45 min [employer]ERC[employer]. - History of Current Complaint Chief Complaint: EDDizziness Stated Complaint: SEIZURE/VOMITED/NECK PAIN FROM FALL Time Seen by Provider: 01/29/18 11:12 Hx Obtained From: Patient Hx Last Menstrual Period: 3 days ago Onset/Duration Of Injury/Symptoms: Hours Mechanism Of Injury: Blunt Trauma Timing: Lasting Hours Onset/Duration: Started hours ago Severity Currently: Moderate Pain Intensity: 4 Pain Scale Used: 0-10 Numeric Aggravating Factors: Movement Alleviating Factors: Position Associated Signs & Symptoms: Positive: Headache. Negative: Fever Related History: Other - s/p seizure today - Allergies/Home Medications Allergies/Adverse Reactions: Allergies Allergy/AdvReac Type Severity Reaction Status Date / Time ketorolac Allergy Severe Swelling Verified 01/29/18 10:29 Of Face,Lips,& Throat shellfish derived Allergy Severe Anaphylatic Verified 01/29/18 10:29 Shock tramadol Allergy Severe See Comment Verified 01/29/18 10:29 Home Medications: Home Medications Divalproex ER TAB(*) [Depakote ER TAB(*)] 250 mg PO DAILY 01/29/18 [History Confirmed 01/29/18] PMH/Surg Hx/FS Hx/Imm Hx Endocrine/Hematology History: Denies: Hx Anticoagulant Therapy, Hx Blood Disorders, Hx Diabetes, Hx Thyroid Disease, Hx Anemia, Hx Unexplained Bleeding Cardiovascular History: Denies: Hx Cardiac Arrest, Hx Embolism, Hx Hypertension, Hx Pacemaker/ICD Respiratory History: Reports: Hx Asthma Denies: Hx Chronic Obstructive Pulmonary Disease (COPD), Hx Pneumonia GI History: Denies: Hx Cirrhosis, Hx Crohn's Disease, Hx Diverticulosis, Hx Gall Bladder Disease, Hx Gastroesophageal Reflux Disease, Hx Gastrointestinal Bleed, Hx Hiatal Hernia, Hx Irritable Bowel, Hx Obstructive Bowel, Hx Ulcer History: Denies: Hx Renal Disease Sensory History: Denies: Hx Contacts or Glasses, Hx Hearing Aid, Hx Hearing Problem Opthamlomology History: Denies: Hx Contacts or Glasses Neurological History: Reports: Hx Seizures - Pt has had history of sezures when Hypoglycemic Psychiatric History: Reports: Hx Anxiety, Hx Depression, Hx Panic Disorder, Hx Inpatient Treatment, Hx Schizophrenia, Other Psychiatric Issues/Disorders - PANIC DISORDER Denies: Hx Eating Disorder, Hx of Violent Episodes Against Others - Immunization History Date of Tetanus Vaccine: utd Date of Influenza Vaccine: 2016 Infectious Disease History: No Infectious Disease History: Denies: Hx Clostridium Difficile, Hx Hepatitis, Hx Human Immunodeficiency Virus (HIV), Hx of Known/Suspected MRSA, Hx Shingles, Hx Tuberculosis, Hx Known/ Suspected VRE, Hx Known/Suspected VRSA, History Other Infectious Disease, Traveled Outside the [place] in Last 30 Days - Family History Known Family History: Positive: Cardiac Disease - Mother had an CA, Other - father -schizophrenia Negative: Diabetes Family History: Biological father - Schizophrenia - Social History Alcohol Use: Weekly Hx Substance Use: Yes Substance Use Type: Reports: None Substance Use Comment - Amount & Last Used: denies Hx Tobacco Use: No Smoking Status (MU): Never Smoked Tobacco Type: Cigarettes Length of Time of Smoking/Using Tobacco: 1 year Have You Smoked in the Last Year: No Review of Systems Negative: Fever Positive: Epistaxis Positive: Vomiting Musculoskeletal: Other - neck pain Neurological: Other - POS: seizure, "feeling out of it" Positive: Headache All Other Systems Reviewed And Are Negative: Yes Physical Exam - Summary Physical Exam Summary: Appearance: The patient is well-nourished in no acute distress. Skin: The skin is warm and dry and skin color reflects adequate perfusion. HEENT: The head is normocephalic and atraumatic. The pupils are equal and reactive. The conjunctivae are clear and without drainage. Nares are patent and without drainage. Mouth reveals moist mucous membranes and the throat is without erythema and exudate. The external ears are intact. The ear canals are patent and without drainage. The tympanic membranes are intact. Neck: the neck is supple with full range of motion and non-tender. There are no carotid bruits. There is no neck vein distension. Respiratory: Chest is non-tender. Lungs are clear to auscultation and breath sounds are symmetrical and equal. Cardiovascular: Heart is regular rate and rhythm. There is no murmur or rub auscultated. There is no peripheral edema and pulses are symmetrical and equal. Abdomen: The abdomen is soft and non-tender. There are normal bowel sounds heard in all four quadrants and there is no organomegaly palpated. Musculoskeletal: There is no back tenderness noted. Extremities are non-tender with full range of motion. There is good capillary refill. There is no peripheral edema or calf tenderness elicited. Pt has tenderness under her neck, on her right rhomboid area. Neurological: Patient is alert and oriented to person, place and time. The patient has symmetrical motor strength in all four extremities. Cranial nerves are grossly intact. Deep tendon reflexes are symmetrical and equal in all four extremities. Psychiatric: The patient has an appropriate affect and does not exhibit any anxiety or depression. Triage Information Reviewed: Yes Vital Signs On Initial Exam: Initial Vitals Temp Pulse Resp BP Pulse Ox 99.6 F 91 14 106/80 99 01/29/18 10:26 01/29/18 10:26 01/29/18 10:26 01/29/18 10:26 01/29/18 10:26 Vital Signs Reviewed: Yes Diagnostics - Vital Signs Vital Signs Temp Pulse Resp BP Pulse Ox 01/29/18 10:26 99.6 F 91 14 106/80 99 - Laboratory Lab Statement: Any lab studies that have been ordered have been reviewed, and results considered in the medical decision making process. - Radiology Cervical spine XR Xray Interpretation: No Acute Changes - IMPRESSION: Reversal of the normal cervical lordosis, otherwise negative. Dr. Barton has reviewed this radiology report. Radiology Interpretation Completed By: Radiologist Re-Evaluation - Re-Evaluation First Eval Re-Evaluation Time: 12:54 Change: Improved Comment: Reviewed XR results with the pt. She is feeling better. Neck Course/Dx - Course Course Of Treatment: Ms. Leavitt found herself on the bathroom floor this morning and thinks she had a seizure or fainted. Her primary complaint at this point is neck pain; it hurts to move her neck. Her exam was unremarkable except for tenderness in the C-spine and the rhomboid area and plain films were negative for any acute pathology. - Diagnoses Provider Diagnoses: Cervical strain Discharge - Sign-Out/Discharge Documenting (check all that apply): Patient Departure - Discharge - Discharge Plan Condition: Stable Disposition: HOME Patient Education Materials: Cervical Strain (ED) Referrals: [facility] [Outside] Additional Instructions: Please establish a primary care provider and follow up in 2-3 days. RETURN TO THE ED FOR ANY WORSENING SYMPTOMS. - Billing Disposition and Condition Condition: STABLE Disposition: Home
--- NOTE | 2018-01-29 12:08 | RAD ---
INDICATION: Fell. Neck pain COMPARISON: November 09, 2016 CT cervical spine TECHNIQUE: Routine five-view imaging was performed FINDINGS: Bones: There are no acute bony findings. There are no significant osteoarthritic findings. Craniocervical junction: The odontoid and atlantodental interval are normal. Alignment: There is reversal of normal cervical lordosis Disc spaces: The disc spaces are well-maintained Soft tissues: The prevertebral soft tissues are normal. IMPRESSION: REVERSAL OF THE NORMAL CERVICAL LORDOSIS, OTHERWISE NEGATIVE.
[2018-01-29 13:02] VITALS: BP 118/71
== END 2018-01-29 13:01 | disposition home or self-care (01) ==
LOC: ED 10:22
DX: S16.1XXA Strain of muscle, fascia and tendon at neck level, initial encounter (principal); W19.XXXA Unspecified fall, initial encounter; Y92.9 Unspecified place or not applicable; Z88.5 Allergy status to narcotic agent
CPT/HCPCS: 72050; 99283

== ENCOUNTER 2018-03-06 15:03 | Emergency (ER) | payer OTHER ==
[2018-03-06 15:16] VITALS: BP 116/63
--- NOTE | 2018-03-06 15:20 | UC ---
Ear Complaint HPI - HPI Summary HPI Summary: left ear pain, pain in left jaw no fevers chills, - History of Current Complaint Chief Complaint: UCEar Stated Complaint: EAR COMPLAINT SWELLING Time Seen by Provider: 03/06/18 15:19 Hx Obtained From: Patient Hx Last Menstrual Period: 03/01/18 ?: No Onset/Duration: Sudden Onset, Lasting Days Pain Intensity: 6 Pain Scale Used: 0-10 Numeric Aggravating Factors: Nothing Alleviating Factors: Nothing - Allergies/Home Medications Allergies/Adverse Reactions: Allergies Allergy/AdvReac Type Severity Reaction Status Date / Time ketorolac Allergy Severe Swelling Verified 03/06/18 15:16 Of Face,Lips,& Throat shellfish derived Allergy Severe Anaphylatic Verified 03/06/18 15:16 Shock tramadol Allergy Severe See Comment Verified 03/06/18 15:16 Home Medications: Home Medications Divalproex ER TAB(*) [Depakote ER TAB(*)] 250 mg PO DAILY 03/06/18 [History Confirmed 03/06/18] PMH/Surg Hx/FS Hx/Imm Hx Previously Healthy: No Neurological History: Seizures Other History Of: Negative For: Anticoagulant Therapy - Surgical History Surgical History: None - Family History Known Family History: Positive: Cardiac Disease - Mother had an CT, Other - father -schizophrenia Negative: Diabetes Family History: Biological father - Schizophrenia - Social History Occupation: Employed Full-time Lives: With Family Alcohol Use: None Substance Use Type: None Substance Use Comment - Amount & Last Used: denies Smoking Status (MU): Never Smoked Tobacco Type: Cigarettes Length of Time of Smoking/Using Tobacco: 1 year Have You Smoked in the Last Year: No Household Exposure Type: Cigarettes - Immunization History Most Recent Influenza Vaccination: fall 2016 Most Recent Tetanus Shot: UTD Most Recent Pneumonia Vaccination: n/a Review of Systems Constitutional: Negative Skin: Negative Eyes: Negative ENT: Sore Throat - right side, Ear Ache - right ear Respiratory: Negative Cardiovascular: Negative Gastrointestinal: Negative Genitourinary: Negative Motor: Negative Neurovascular: Negative Musculoskeletal: Negative Neurological: Negative Psychological: Negative Is Patient Immunocompromised?: No All Other Systems Reviewed And Are Negative: Yes Physical Exam Triage Information Reviewed: Yes Appearance: Well-Appearing, No Pain Distress, Well-Nourished Vital Signs: Initial Vital Signs Temp 98.0 F 03/06/18 15:11 Pulse 87 03/06/18 15:11 Resp 18 03/06/18 15:11 BP 116/63 03/06/18 15:11 Pulse Ox 100 03/06/18 15:11 Vital Signs Reviewed: Yes Eye Exam: Normal Eyes: Positive: Conjunctiva Clear ENT Exam: Normal ENT: Positive: Normal ENT inspection, Hearing grossly normal, Pharynx normal, Nasal congestion, TMs normal - left, TM bulging - right, TM dull - right, Uvula midline. Negative: Tonsillar swelling, Trismus, Muffled voice, Hoarse voice, Dental tenderness, Sinus tenderness Dental Exam: Normal Neck exam: Normal Neck: Positive: Supple, Nontender, No Lymphadenopathy Respiratory Exam: Normal Respiratory: Positive: Chest non-tender, No respiratory distress, No accessory muscle use Cardiovascular Exam: Normal Cardiovascular: Positive: RRR, Pulses Normal, Brisk Capillary Refill Musculoskeletal Exam: Normal Musculoskeletal: Positive: Strength Intact, ROM Intact, No Edema Neurological Exam: Normal Neurological: Positive: Alert, Muscle Tone Normal Psychological Exam: Normal Skin Exam: Normal Ear Complaint Course/Dx - Course Course Of Treatment: amoxicillin, tylenol, ibuprofen, increase fluids follow with pcp - Differential Dx/Diagnosis Provider Diagnoses: Right otitis media Discharge - Sign-Out/Discharge Documenting (check all that apply): Patient Departure - Discharge Plan Condition: Stable Disposition: HOME Prescriptions: Amoxicillin PO (*) [Amoxicillin 875 MG (*)] 875 mg PO BID #20 tab Patient Education Materials: Ibuprofen (By mouth), Ear Infection (ED), Warm Compress or Soak (ED) Referrals: [facility] [Outside] - If Needed No Primary Care Phys,NOPCP [Primary Care Provider] - - Billing Disposition and Condition Condition: STABLE Disposition: Home
== END 2018-03-06 15:40 | disposition home or self-care (01) ==
LOC: UCEAST 15:03
DX: H66.91 Otitis media, unspecified, right ear (principal); R56.9 Unspecified convulsions; Z88.5 Allergy status to narcotic agent; Z91.013 Allergy to seafood
CPT/HCPCS: 99212; G0463

== ENCOUNTER 2018-05-05 14:46 | Emergency (ER) | payer SELFPAY ==
[2018-05-05 14:56] VITALS: BP 98/66
--- NOTE | 2018-05-05 15:11 | UC ---
Throat Pain/Nasal Eduardo HPI - HPI Summary HPI Summary: 8 day sore throat and cough in a nonsmoker, controlled asthmatic. cold air makes it worse, and nothing makes it better. has used tylenol which helps reduce fever. - History of Current Complaint Chief Complaint: UCRespiratory Stated Complaint: COUGH Time Seen by Provider: 05/05/18 14:59 Hx Obtained From: Patient Hx Last Menstrual Period: one week ago ?: No Onset/Duration: Gradual Onset - 8 days ago Severity: Mild Pain Intensity: 0 Cough: Other: - +peurisy Associated Signs & Symptoms: Positive: Dysphagia, Fever - Epiglottits Risk Factors Epiglottis Risk Factors: Negative - Allergies/Home Medications Allergies/Adverse Reactions: Allergies Allergy/AdvReac Type Severity Reaction Status Date / Time ketorolac Allergy Severe Swelling Verified 05/05/18 14:57 Of Face,Lips,& Throat shellfish derived Allergy Severe Anaphylatic Verified 05/05/18 14:57 Shock tramadol Allergy Severe See Comment Verified 05/05/18 14:57 Home Medications: Home Medications medroxyPROGESTERone ACETATE* [DEPO-Provera*] 1 dose IM SEE INSTRUCTIONS [History Confirmed 05/05/18] PMH/Surg Hx/FS Hx/Imm Hx Previously Healthy: Yes Respiratory History: Asthma - usually controlled, never uses inhaler Other History Of: Negative For: Anticoagulant Therapy - Surgical History Surgical History: None - Family History Known Family History: Positive: Cardiac Disease - Mother had an [place], Other - father -schizophrenia Negative: Diabetes Family History: Biological father - Schizophrenia - Social History Alcohol Use: None Substance Use Type: None Substance Use Comment - Amount & Last Used: denies Smoking Status (MU): Never Smoked Tobacco Type: Cigarettes Length of Time of Smoking/Using Tobacco: 1 year Have You Smoked in the Last Year: No Household Exposure Type: Cigarettes - Immunization History Most Recent Influenza Vaccination: fall 2016 Most Recent Tetanus Shot: UTD Most Recent Pneumonia Vaccination: n/a Review of Systems Constitutional: Fever Skin: Negative ENT: Sore Throat, Sinus Congestion Respiratory: Cough, Other - +peluritic chest pain Cardiovascular: Negative Gastrointestinal: Negative Is Patient Immunocompromised?: No All Other Systems Reviewed And Are Negative: Yes Physical Exam Triage Information Reviewed: Yes Appearance: Well-Appearing Vital Signs: Initial Vital Signs Temp 98.9 F 10/14/18 14:54 Pulse 103 05/05/18 14:54 Resp 18 05/05/18 14:54 BP 98/66 05/05/18 14:54 Pulse Ox 99 05/05/18 14:54 Vital Signs Reviewed: Yes Eyes: Positive: Conjunctiva Clear ENT: Positive: Pharyngeal erythema, Nasal congestion, TMs normal, Tonsillar swelling. Negative: Tonsillar exudate Dental: Positive: Cervical Lymphadenopathy Neck: Positive: Tenderness @ - cervical lymphadenopathy Respiratory: Positive: Lungs clear, No respiratory distress. Negative: Crackles , Rhonchi, Stridor, Wheezing Cardiovascular Exam: Normal Skin: Negative: rashes Throat Pain/Nasal Course/Dx - Course Assessment/Plan: acute cough in a usually controlled asthmatic. has not used albuterol in many months, will restart. no signs of pneumonia or wheezing. vitals good. tender lymphadenopathy and erythematous pharynx but rapid strep neg. viral in etiology. - Differential Dx/Diagnosis Provider Diagnoses: bronchitis/pharyngitis. Discharge - Sign-Out/Discharge Documenting (check all that apply): Patient Departure All imaging exams completed and their final reports reviewed: No Studies - Discharge Plan Condition: Good Disposition: HOME Prescriptions: Albuterol HFA INHALER* [Ventolin HFA Inhaler*] 2 puff INH Q6H PRN #1 mdi PRN Reason: Cough Patient Education Materials: Pharyngitis (ED), Acute Bronchitis (ED) Forms: *Work Release Referrals: No Primary Care Phys,NOPCP [Primary Care Provider] - - Billing Disposition and Condition Condition: GOOD Disposition: Home
== END 2018-05-05 15:42 | disposition home or self-care (01) ==
LOC: UCEAST 14:46
DX: J40 Bronchitis, not specified as acute or chronic (principal); J02.9 Acute pharyngitis, unspecified; Z88.5 Allergy status to narcotic agent; Z91.013 Allergy to seafood; Z88.6 Allergy status to analgesic agent
CPT/HCPCS: 87651; 99212; G0463

== ENCOUNTER 2018-09-04 19:16 | Emergency (ER) | payer MEDICAID ==
--- NOTE | 2018-09-04 19:49 | ED ---
Neurological HPI - HPI Summary HPI Summary: This patient is a 23 year old F brought in by ambulance to [facility] accompanied by boyfriend with a chief complaint of seizure like activity that occurred [employer]. The patient states her seizure like activity was witnessed by her boyfriend, and lasted approximately 45 seconds. The patient rates the pain 7/10 in severity. Symptoms aggravated by nothing. Symptoms alleviated by nothing. Patient reports tongue injury (she states she bit her tongue). Patient denies uncontrolled urination. Patient states she has a history of seizure, with her last seizure occurring two years ago. Patient states she stopped taking her Depakote approximately 6 months ago. - History of Current Complaint Chief Complaint: EDSeizure Stated Complaint: SEIZURE Time Seen by Provider: 09/04/18 19:40 Hx Obtained From: Patient Hx Last Menstrual Period: one week ago Onset/Duration: Sudden Onset, Started hours ago, Resolved Timing: Intermittent Episodes Lasting: - 45 Seconds Onset Severity: Moderate Current Severity: Moderate Number of Seizures: 1 Pain Intensity: 7 Pain Scale Used: 0-10 Numeric Aggravating: Nothing Alleviating: Nothing Related Hx: Seizure - Additional Pertinent History Primary Care Physician: MARIBEL - Allergy/Home Medications Allergies/Adverse Reactions: Allergies Allergy/AdvReac Type Severity Reaction Status Date / Time ketorolac Allergy Severe Swelling Verified 05/05/18 14:57 Of Face,Lips,& Throat shellfish derived Allergy Severe Anaphylatic Verified 05/05/18 14:57 Shock tramadol Allergy Severe See Comment Verified 05/05/18 14:57 PMH/Surg Hx/FS Hx/Imm Hx Previously Healthy: No Endocrine/Hematology History: Denies: Hx Anticoagulant Therapy, Hx Blood Disorders, Hx Diabetes, Hx Thyroid Disease, Hx Anemia, Hx Unexplained Bleeding Cardiovascular History: Denies: Hx Cardiac Arrest, Hx Embolism, Hx Hypertension, Hx Pacemaker/ICD Respiratory History: Reports: Hx Asthma Denies: Hx Chronic Obstructive Pulmonary Disease (COPD), Hx Pneumonia GI History: Denies: Hx Cirrhosis, Hx Crohn's Disease, Hx Diverticulosis, Hx Gall Bladder Disease, Hx Gastroesophageal Reflux Disease, Hx Gastrointestinal Bleed, Hx Hiatal Hernia, Hx Irritable Bowel, Hx Obstructive Bowel, Hx Ulcer History: Denies: Hx Renal Disease Sensory History: Denies: Hx Contacts or Glasses, Hx Hearing Aid, Hx Hearing Problem Opthamlomology History: Denies: Hx Contacts or Glasses Neurological History: Reports: Hx Seizures - Pt has had history of sezures when Hypoglycemic Psychiatric History: Reports: Hx Anxiety, Hx Depression, Hx Panic Disorder, Hx Inpatient Treatment, Hx Schizophrenia, Other Psychiatric Issues/Disorders - PANIC DISORDER Denies: Hx Eating Disorder, Hx of Violent Episodes Against Others - Immunization History Date of Tetanus Vaccine: utd Date of Influenza Vaccine: 2016 Infectious Disease History: No Infectious Disease History: Denies: Hx Clostridium Difficile, Hx Hepatitis, Hx Human Immunodeficiency Virus (HIV), Hx of Known/Suspected MRSA, Hx Shingles, Hx Tuberculosis, Hx Known/ Suspected VRE, Hx Known/Suspected VRSA, History Other Infectious Disease, Traveled Outside the [place] in Last 30 Days - Family History Known Family History: Positive: Cardiac Disease - Mother had an [place], Other - father -schizophrenia Negative: Diabetes Family History: Biological father - Schizophrenia - Social History Occupation: Employed Full-time Lives: With Family Alcohol Use: None Hx Substance Use: Yes Substance Use Type: Reports: None Substance Use Comment - Amount & Last Used: denies Hx Tobacco Use: No Smoking Status (MU): Never Smoked Tobacco Type: Cigarettes Length of Time of Smoking/Using Tobacco: 1 year Have You Smoked in the Last Year: No Review of Systems Positive: Other - Positive tongue injury Genitourinary: Other - Negative uncontrolled urination Neurological: Other - Positive seizure like activity All Other Systems Reviewed And Are Negative: Yes Physical Exam - Summary Physical Exam Summary: VITAL SIGNS: Reviewed. GENERAL: Patient is a well-developed and nourished female who is lying comfortable in the stretcher. Patient is not in any acute respiratory distress. HEAD AND FACE: No signs of trauma. No ecchymosis, hematomas or skull depressions. No sinus tenderness. EYES: PERRLA, EOMI x 2, No injected conjunctiva, no nystagmus. EARS: Hearing grossly intact. Ear canals and tympanic membranes are within normal limits. MOUTH: Oropharynx within normal limits. NECK: Supple, trachea is midline, no adenopathy, no JVD, no carotid bruit, no c- spine tenderness, neck with full ROM. CHEST: Symmetric, no tenderness at palpation LUNGS: Clear to auscultation bilaterally. No wheezing or crackles. CVS: Regular rate and rhythm, S1 and S2 present, no murmurs or gallops appreciated. ABDOMEN: Soft, non-tender. No signs of distention. No rebound no guarding, and no masses palpated. Bowel sounds are normal. EXTREMITIES: FROM in all major joints, no edema, no cyanosis or clubbing. Old self-inflicted wounds on both forearms NEURO: Alert and oriented x 3. No acute neurological deficits. Speech is normal and follows commands. SKIN: Dry and warm Triage Information Reviewed: Yes Vital Signs On Initial Exam: Initial Vitals Temp Pulse Resp BP Pulse Ox 98 F 106 18 96/78 95 09/04/18 19:20 09/04/18 19:20 09/04/18 19:20 09/04/18 19:20 09/04/18 19:20 Vital Signs Reviewed: Yes - [place] Coma Scale Best Eye Response: 4 - Spontaneous Best Motor Response: 6 - Obeys Commands Best Verbal Response: 5 - Oriented Coma Scale Total: 15 Diagnostics - Vital Signs Vital Signs Temp Pulse Resp BP Pulse Ox 09/04/18 19:20 98 F 106 18 96/78 95 - Laboratory Result Diagrams: 09/04/18 20:27 09/04/18 20:27 Lab Statement: Any lab studies that have been ordered have been reviewed, and results considered in the medical decision making process. - CT Brain CT CT Interpretation Completed By: Radiologist Summary of CT Findings: Brain CT reveals, per radiologist, no acute intracranial abnormality. No interval changes. ED physician has reviewed this radiology report. Course/Dx - Course Course Of Treatment: This patient is a 23 year old F brought in by ambulance to [facility] accompanied by boyfriend with a chief complaint of seizure like activity that occurred [employer]. Patient denies uncontrolled urination. Patient states she has a history of seizure, with her last seizure occurring two years ago. Patient states she stopped taking her Depakote approximately 6 months ago. Physical Exam Findings: Old self-inflicted wounds on both forearms. Brain CT reveals, per radiologist, no acute intracranial abnormality. No interval changes. Bloodwork obtained. In the ED course the patient was given Keppra. Patient will be discharged with prescription for Keppar and follow up from neurology. The patient is agreeable with this plan. - Diagnoses Provider Diagnoses: Seizure Discharge - Sign-Out/Discharge Documenting (check all that apply): Patient Departure - Discharge home Patient Received Moderate/Deep Sedation with Procedure: No - Discharge Plan Condition: Stable Disposition: HOME Prescriptions: levETIRAcetam TAB* [Keppra TAB*] 500 mg PO BID #60 tab Patient Education Materials: Levetiracetam (By mouth), Epilepsy (ED) Referrals: Doris Rios MD [Medical Doctor] - 1 Day Additional Instructions: Follow up with neurologist in 1-2 days. No driving, no swimming, no sports until you follow up with the neurologist. RETURN TO THE EMERGENCY DEPARTMENT FOR NEW OR WORSENING SYMPTOMS - Attestation Statements Document Initiated by Scribe: Yes Documenting Scribe: Leigha Borja Provider For Whom Scribe is Documenting (Include Credential): Dr. Leland Staples MD Scribe Attestation: I, Leigha Borja, scribed for Dr. Leland Staples MD on 09/04/18 at 2104. Status of Scribe Document: Ready
[2018-09-04] MEDS ORDERED: levETIRAcetam IV* 1,000 MG in NS 0.9% 100 ML* 100 ML IVPB SCH (20:00)
[2018-09-04 20:34] LABS: ABS Basophils 0.1 10^3/ul (0-0.2); ABS Eosinophils 0.2 10^3/ul (0-0.6); ABS Lymphocytes 1.3 10^3/ul (1.0-4.8); ABS Monocytes 0.8 10^3/ul (0-0.8); ABS Neutrophils 11.9 10^3/ul (1.5-7.7); ABS Nucleated RBC 0 10^3/ul; Eosinophil % 1.4 %; Hematocrit 40 % (35-47); Hemoglobin 13.5 g/dl (12.0-16.0); Lymphocyte % 9.2 %; Mean Corpuscular HGB Conc 34 g/dl (31-36); Mean Corpuscular Hemoglobin 30 pg (27-31); Mean Corpuscular Volume 88 fL (80-97); Mean Platelet Volume 7.4 fL (7.4-10.4); Nucleated Red Blood Cells % 0; Platelet Count 479 10^3/ul (150-450); Red Blood Count 4.59 10^6/ul (4.00-5.40); Red Cell Distribution Width 14 % (10.5-15); White Blood Count 14.3 10^3/ul (3.5-10.8)
[2018-09-04 20:52] LABS: ALT 10 U/L (7-52); AST 12 U/L (13-39); Alkaline Phosphatase 58 U/L (34-104); Anion Gap 5 mmol/L (2-11); BUN/Creatinine Ratio 13.2 (8-20); Blood Urea Nitrogen 9 mg/dL (6-24); CO2 Carbon Dioxide 27 mmol/L (22-32); Chloride 103 mmol/L (101-111); EGFR African American 129.7 (>60); EGFR Non-African American 107.2 (>60); Globulin 4.2 g/dL (2-4); Glucose 114 mg/dL (70-100); Magnesium 1.9 mg/dL (1.9-2.7); Potassium 4.1 mmol/L (3.5-5.0); Sodium 135 mmol/L (135-145); Total Protein 8.2 g/dL (6.4-8.9)
[2018-09-04 20:59] LABS: HCG Pregnancy < 0.60 mIU/mL
[2018-09-04 21:18] VITALS: BP 110/77
== END 2018-09-04 21:17 | disposition home or self-care (01) ==
LOC: ED 19:16
DX: R56.9 Unspecified convulsions (principal); Z88.5 Allergy status to narcotic agent; Z91.013 Allergy to seafood
CPT/HCPCS: 36415; 70450; 80053; 83735; 84702; 85025; 96365; 99283

== ENCOUNTER 2019-03-25 19:49 | Emergency (ER) | payer SELFPAY ==
[2019-03-25 20:01] VITALS: BP 110/67
[2019-03-25] MEDS ORDERED: Naproxen TAB* 250 MG PO ONE (20:36)
[2019-03-25] MEDS ORDERED: Carisoprodol TAB* 350 MG PO ONE (21:23)
--- NOTE | 2019-03-25 21:33 | UC ---
Shoulder Pain HPI - HPI Summary HPI Summary: 23 yo female has "had issues" with her left trpezius muscle since the age of 16 worse past few weeks today at work it hurt so bad she had a "spell" Gets yearly valproic acid shots from a neurologist for sz hurts to use left arm and turn head - History of Current Complaint Chief Complaint: UCUpperExtremity Stated Complaint: shoulder pain Time Seen by Provider: 03/25/19 20:26 Hx Obtained From: Patient Hx Last Menstrual Period: implant Onset/Duration: Gradual Onset, Lasting Weeks Timing: Constant Severity Initially: Moderate Severity Currently: Severe Location Of Pain: Is Discrete @ - left trap Pain Intensity: 10 Pain Scale Used: 0-10 Numeric Character: Throbbing Aggravating Factor(s): Movement Alleviating Factor(s): Nothing Associated Signs And Symptoms: Positive: Negative Related History: Dominant Hand Right Torso: 1 - tender - Allergies/Home Medications Allergies/Adverse Reactions: Allergies Allergy/AdvReac Type Severity Reaction Status Date / Time ketorolac Allergy Severe Swelling Verified 03/25/19 20:02 Of Face,Lips,& Throat shellfish derived Allergy Severe Anaphylatic Verified 03/25/19 20:02 Shock tramadol Allergy Severe See Comment Verified 03/25/19 20:02 PMH/Surg Hx/FS Hx/Imm Hx Previously Healthy: Yes Neurological History: Seizures - ? Psychological History: Anxiety, Depression, Bipolar Disorder Other History Of: Negative For: Anticoagulant Therapy - Surgical History Surgical History: None - Family History Known Family History: Positive: Cardiac Disease - Mother had an [place], Other - father -schizophrenia Negative: Diabetes Family History: Biological father - Schizophrenia - Social History Alcohol Use: Weekly Substance Use Type: Marijuana Substance Use Comment - Amount & Last Used: monthly Smoking Status (MU): Never Smoked Tobacco Type: Cigarettes Length of Time of Smoking/Using Tobacco: 1 year Have You Smoked in the Last Year: No Household Exposure Type: Cigarettes - Immunization History Most Recent Influenza Vaccination: fall 2016 Most Recent Tetanus Shot: UTD Most Recent Pneumonia Vaccination: n/a Review of Systems All Other Systems Reviewed And Are Negative: Yes Constitutional: Positive: Negative Skin: Positive: Negative Eyes: Positive: Negative ENT: Positive: Negative Respiratory: Positive: Negative Cardiovascular: Positive: Negative Gastrointestinal: Positive: Negative Genitourinary: Positive: Negative Motor: Positive: Negative Neurovascular: Positive: Negative Musculoskeletal: Positive: Myalgia - L trap Neurological: Positive: Negative Psychological: Positive: Negative Physical Exam Triage Information Reviewed: Yes Appearance: Well-Appearing, No Pain Distress, Well-Nourished Vital Signs: Initial Vital Signs Temp 99.1 F 03/25/19 19:55 Pulse 100 03/25/19 19:55 Resp 16 03/25/19 19:55 BP 110/67 03/25/19 19:55 Pulse Ox 99 03/25/19 19:55 Vital Signs Reviewed: Yes Eyes: Positive: Conjunctiva Clear ENT: Positive: Normal ENT inspection Neck: Positive: Other: - decreased ROM, tender left trap Respiratory: Positive: Lungs clear, Normal breath sounds, No respiratory distress, No accessory muscle use Cardiovascular: Positive: RRR, No Murmur Abdominal Exam: Normal Bowel Sounds: Positive: Present Musculoskeletal: Positive: ROM Intact, No Edema Neurological: Positive: Alert Psychological Exam: Normal Skin Exam: Normal Shoulder Course/Dx - Differential Dx/Diagnosis Provider Diagnosis: Strain of left trapezius muscle Discharge ED - Sign-Out/Discharge Documenting (check all that apply): Patient Departure All imaging exams completed and their final reports reviewed: No - Discharge Plan Condition: Stable Disposition: HOME Prescriptions: Carisoprodol TAB* [Soma TAB*] 350 mg PO Q6H PRN #20 tab MDD 4 PRN Reason: Spasms - Muscle Naproxen [Naproxen 500 mg tab] 500 mg PO BID PRN #28 tablet PRN Reason: Pain Patient Education Materials: Muscle Strain (ED), Soft Cervical Collar (ED) Forms: *Work Release Additional Instructions: Follow up for new or worsening symptoms - Billing Disposition and Condition Condition: STABLE Disposition: Home
--- NOTE | 2019-03-26 08:05 | UC ---
- Progress Note Progress Note: Reviewed radioligy interpretation of cervical spine films. No fracture seen, no change from Dr. Cummings's reading. Course/Dx - Diagnoses Provider Diagnoses: Strain of left trapezius muscle Discharge ED - Sign-Out/Discharge Documenting (check all that apply): Patient Departure All imaging exams completed and their final reports reviewed: Yes - Discharge Plan Condition: Stable Disposition: HOME Prescriptions: Carisoprodol TAB* [Soma TAB*] 350 mg PO Q6H PRN #20 tab MDD 4 PRN Reason: Spasms - Muscle Naproxen [Naproxen 500 mg tab] 500 mg PO BID PRN #28 tablet PRN Reason: Pain Patient Education Materials: Muscle Strain (ED), Soft Cervical Collar (ED) Forms: *Work Release Referrals: No Primary Care Phys,NOPCP [Primary Care Provider] - Additional Instructions: Follow up for new or worsening symptoms - Billing Disposition and Condition Condition: STABLE Disposition: Home
== END 2019-03-25 21:40 | disposition home or self-care (01) ==
LOC: UCEAST 19:49
DX: S29.012A Strain of muscle and tendon of back wall of thorax, initial encounter (principal); X58.XXXA Exposure to other specified factors, initial encounter; Y92.89 Other specified places as the place of occurrence of the external cause; Y99.0 Civilian activity done for income or pay
CPT/HCPCS: 72050; 99213; A9270-GY; G0463

== ENCOUNTER 2019-07-13 03:50 | Emergency (ER) | payer MEDICAID ==
[2019-07-13] MEDS ORDERED: LORazepam TAB(*) 1 MG PO ONE ×2 (03:59→04:40)
--- OUTSIDE RECORDS SUMMARY | 2019-07-13 04:03 | XMS REPORT | Continuity of Care Document ---
:1995 Author Organization [facility] Address [address] [place] [address] Phone Care Team Providers Name Role Phone Radha Webber Unavailable Unavailable Allergies, Adverse Reactions, Alerts Substance Reaction Status tramadol (mild to moderate) Active hydrocodone Nausea/Vomiting Active acetaminophen SWELLING OF MOUTH & LIPS Active POTASSIUM CLAVULANATE SWELLING OF BODY PARTS Active AMOXICILLIN TRIHYDRATE SWELLING OF BODY PARTS Active Medications Medication Instructions Dosage Effective Dates Status Comments (start - stop) azithromycin 500 mg 2 tabs po x 1 for - Active tablet infection Nexplanon 68 mg Insert in clinic - Active subdermal implant Xanax 0.5 mg tablet take 1 tablet by - Active oral route as needed EFFEXOR XR (unknown take 1 capsule by Not Available - Active strength) oral route every day with food Problems Condition Effective Dates (start - Clinical Status Comments stop) Human immunodeficiency virus [HIV] - counseling Encounter for screening for human - immunodeficiency virus Contact w and exposure to infect w a sexl mode of transmiss Enctr srvlnc implantable subdermal contraceptive Body mass index (BMI) 25.0-25.9, adult Enctr for init prescription of implntbl subdermal contracep Encounter for elective termination of Encntr screen for dis of the bld/bld-form org/immun mechnsm Encounter for test, result positive Encounter for oth general cnsl and advice on contraception Encntr screen for infections w sexl mode of transmiss Nausea Anxiety disorder, unspecified Human immunodeficiency virus [HIV] - counseling Encntr screen for infections w sexl mode of transmiss Encounter for oth general cnsl and advice on contraception Encounter for screening for human - immunodeficiency virus Encounter for oth general cnsl and - advice on contraception Enctr srvlnc implantable subdermal contraceptive Encounter for initial prescription of contraceptive pills Encounter for initial prescription of other contraceptives BCM Other, Start Implant, Surveillance EC Counseling Or RX OCP, Start PT, Negative Implant, Surveillance Implant, Insertion RhD positive - Active Depressive disorder - Active Procedures Procedure Date No information Results Test Name Date and Time Measure Units Reference Range Abnormal Flag Status Comments No information Advance Directives Directive Yes / No Effective Date File Name No information Encounters Encounter Practice Location Reason(s) Diagnoses Date Provider Providers Description For Visit Copied on Encounter [facility] [place] 4-201 [place]. Southern [address] [place], [address] [place], [place], [place], [address], [id number], [place]. [place] tel: tel: [phone] [facility] Human May- Chris Referring [facility] [place] immunodeficiency 2 Irais. Provider: [facility] virus [HIV] [address] Irais [address] counselingEncounte [place] Chris J, [address], [address], [address] [place] for human [place], St, [place], St, [place], [place], [address]. [place], [place] [address], tel:[phone], exposure [place] infect [place]. [id number] [place] w a sexl mode of tel: tel:+72 transmissEnctr [phone] srvlnc implantable subdermal contraceptive [facility] Body mass index White [facility] ([facility] 25.0-25.9, 0-201 Aliyah. Provider: Annie adultEnctr for 9 [address] Aliyah [address] init prescription [place], [address], [address], [address] [place] [address] [place] subdermal [place], St, [place], St, [place], [place], [address]. [place], [address], [id number], [place]. [place] tel:+ [phone] [facility] Encounter for Citlalli Referring [facility] [place] elective Jocelyn. Provider: [facility] termination of 8 [address] [place] Citlalli R, [facility], [address], [address] [place], [address], [place], [place], [place], [place], [address]. [address]. [id number], tel:+ tel:+[phone] [place] [phone] tel:+ [phone] [facility] Encntr screen for White [facility] [place] dis of the Aliyah. [facility] bld/bld-form 8 [address] org/immun [place] [facility], [address], [address] [place] for [place], , [place], [place], [place], positiveEncounter [address], [id number], for oth general [place]. [place] cnsl and advice on tel:+72 contraceptionEncnt [phone] r screen for infections w sexl mode of transmissNauseaAnx iety disorder, unspecified [facility] Human Nov- [facility] [place] immunodeficiency [facility] virus [HIV] 7 Sueane. Finger counselingEncntr [address] [facility], [address] screen for [place] [address] [place] infections w sexl , , [place], mode [place], trans[place]ounter [place], [id number], for oth general [address]. [place] cnsl and advice on tel:+ tel:+72 contraceptionEncou [phone] nter for screening for human immunodeficiency virus [facility] Encounter for oth Guggino Referring [facility] [place] general cnsl and Val Provider: [facility] advice on 7 . [address] contraceptionEnctr [place] Guggino F, [facility], [address], [address] [place] subdermal [place], [address], , [place], contrace[place]Encou [place], [place], [place] [address], [address]. [id number], prescription of [place]. tel:+[phone] [place] contraceptive tel:[phone] tel:+[phone] pills [phone] [facility] Encounter for Leif-2 White Referring [facility] [place] initial 1 Aliyah. Provider: [facility] prescription of 6 [address] other [place] Citlalli R, [facility], [address], [address] [place], [address], St, [place], [place], [place], [address], [address]. [id number], [place]. tel:+[phone] [place] [phone] tel:[phone] [facility] BCM Other, Start Leif-0 Avidano Referring [facility] [place] 4 Danni. Provider: [facility] 5 [address] [place], [facility], [address], [address] [place], [address], St, [place], [place], [place], [address]. [address]. [id number], tel:+60 tel:+[phone] [place] [phone] tel:[phone] [facility] Implant, Apr-2 [facility] [place] SurveillanceEC Popeye. [facility] Counseling Or RX 5 [address] [place], [address], [address] [place], St, [place], [address], [id number], [place]. [place] tel:+60 tel:[phone] [facility] OCP, Start Apr-2 [facility] [place] 2- Mimi. Southern 5 [address] [place], [address], [address] [place], St, [place], [address]. [id number], tel:+[phone] [place] [phone] tel:[phone] [facility] PT, Negative Apr-2 [place] [facility] [place] 0- Danni. Provider: [facility] 5 [address] [place] [address] [place] [facility]. [facility], [address], [address] [place], St, [place], [address]. [id number], tel:+ [phone] tel:[phone] [facility] Implant, [facility] SurveillanceImplan Angelica. Southern t, Insertion 4 [address] [place], [address], [address] [place], , [place], [address]. [id number], tel:[phone] tel:[phone] [facility] Apr-0 [facility] [place] 3-201 Angelica. Southern 4 [address] [place], [address], [address] [place], St, [place], [address]. [id number], tel:+ [phone] tel:[phone] Family History Family Member Diagnosis Age At Onset 1st degree relative No hx of coronary heart disease (female <65, male <55) Mother No history of Myocardial infarction Brother No history of Stroke 1st degree relative No hx of cancer of breast, colon, endometrium or ovary Father No history of Stroke 1st degree relative No hx of venous thromboembolism Brother No history of Myocardial infarction Sister No history of Stroke Father No history of Myocardial infarction Mother No history of Stroke Sister No history of Myocardial infarction Immunizations Vaccine Date Status Comments MMR administered Source: New Immunization Record HPV administered Source: New Immunization Record Hepatitis B administered Source: New Immunization Record Hepatitis A administered Source: New Immunization Record Payers Payer name Insurance type Covered constitution party ID Authorization(s) FPBP PRESUMPTIVE ELIGIBILITY [id number] Social History Type Description Quantity Date Captured Comments Alcohol Use Details Unknown Caffeine Use Details Unknown Tobacco Use Status Unknown Smoking Status Never smoker Sex Female Vital Signs Date / Height Weight BMI Pulse Blood Temperature Respiratory Body Head BMI Pulse Inhaled Time: Rate Pressure Rate Surface Circumference percentile [place] Area No information Chief Complaint And Reason For Visit No information Reason For Referral Reason For Referral No information Plan Of Treatment Date Type Action Status No information History Of Present Illness Encounter Date Complaint History Of Present Illness No information Functional Status Date Functional Assessment No information Medications Administered Medication Instructions Dosage Effective Dates (start - stop) Status Comments No information Instructions Date Instruction Additional Information No information Assessments Type Assessment Date No information Goals Health Concern Goal Type Priority Status Date No information Medical Equipment Description Device [place] Device Identifier Effective Dates (start - stop ) Status No information Mental Status Date Cognitive Assessment No information Health Concerns Observation Date No information Concern Status Date No information
[2019-07-13] MEDS ORDERED: hydrOXYzine HCL TAB* 50 MG PO ONE (04:04)
--- OUTSIDE RECORDS SUMMARY | 2019-07-13 04:04 | XMS REPORT | Continuity of Care Document ---
:1995 Author Organization [facility] Address [address] [place] [address] Phone Care Team Providers Name Role Phone Irais Perez NP Unavailable Unavailable Allergies, Adverse Reactions, Alerts Substance Reaction Status tramadol (mild to moderate) Active hydrocodone Nausea/Vomiting Active acetaminophen SWELLING OF MOUTH & LIPS Active POTASSIUM CLAVULANATE SWELLING OF BODY PARTS Active AMOXICILLIN TRIHYDRATE SWELLING OF BODY PARTS Active Medications Medication Instructions Dosage Effective Dates Status Comments (start - stop) azithromycin 500 2 tabs po x 1 for - Active mg tablet infection Nexplanon 68 mg Insert in clinic - Active subdermal implant Xanax 0.5 mg take 1 tablet by - Active tablet oral route as needed EFFEXOR XR take 1 capsule by Not Available - Active (unknown strength) oral route every day with food Reglan 10 mg take 1 tablet by 10 MG - No Longer tablet oral route 4 times Active every day 30 minutes before meals and at bedtime Problems Condition Effective Dates (start - Clinical [...] screen for dis of the bld/bld-form org/immun [facility] Encounter for test, result positive Encounter for [...] Depressive disorder - Active Procedures Procedure Date PREVENTIVE COUNSELING, 8-14 Minutes HIV-1/HIV-2, SINGLE ASSAY N.GONORRHOEAE, DNA, AMP PROB CHYLMD DNA, AMP PROBE OFFICE/OUTPATIENT VISIT, EST AZITHROMYCIN 500 MG #2 OTHER Medical Services Contraceptive Paper Handler.Svc. Other Paper Handler.Svc. STI Results Test Name Date and Time Measure Units Reference Range Abnormal Flag Status Comments No information Advance Directives Directive Yes / No Effective Date File Name No information Encounters Encounter Practice Location Reason(s) Diagnoses Date Provider Providers Description For Visit Copied on Encounter PREVENTIVE [facility] STI Human Chris Referring COUNSELING, [facility] [place] Testing No immunodeficiency 2-201 Irais. Provider: 8-14 Minutes [facility] Symptoms virus [HIV] 9 [address] (M) (chief counselingEncounte [place] Chris J, [address], [address] complaint) r for screening St, W [place] for human [place], St, [place], St, [place], [place], [address]. [place], [place] [address], tel:+ [phone], exposure [place] infect [place]. [id number] [place] w a sexl mode of tel: tel: transmissEnctr [phone] srvlnc implantable subdermal contraceptive [facility] Body mass index Jul- White Referring [facility] [place] (BMI) 25.0-25.9, 0-201 Aliyah. Provider: [facility] adultEnctr for 9 [address] init prescription [place], [address], [address], W [place] subdermal [place], , [place], St, [place], [place], [address]. [place], [address], [id number], [place]. [place] tel: [phone] [facility] Encounter for Citlalli Referring [facility] [place] elective 2 Jocelyn. Provider: [facility] termination of 8 [address] [place] R, [place], [address], [address] [place], [address] [address], St, [place], [place], [place], [address]. [address]. [id number], tel: tel:+ [phone] tel: [phone] [facility] Encntr screen for White [facility] [place] dis of the Aliyah. [facility] bld/bld-form 8 [address] org/immun [place], [address], W [place] for [place], , [place], [place], [place], positiveEncounter [address], [id number], for oth general [place]. [place] cnsl and advice on tel:+ contraceptionEncnt [phone] r screen for infections w sexl mode of transmissNauseaAnx iety disorder, unspecified [facility] Human Nov- [facility] [place] immunodeficiency 5- [facility] virus [HIV] 7 Sueane. [address]inger counselingEncntr [address], [address] screen for [place] W [place] infections w sexl St, St, [place], mode of [place], trans[place]ounter [place], [id number], for oth general [address]. [place] cnsl and advice on tel:60 tel:+72 contraceptionEncou [phone] nter for screening for human immunodeficiency virus [facility] Encounter for oth Apr- Guggino Referring [facility] [place] general cnsl and Val Provider: [facility] advice on 7 . [address] contraceptionEnctr [place] Guggino F, [facility], [address], [address] [place] subdermal [place], [place] St, St, [place], contrace[place]Encou [place], [place], [place], [place] [address], [address]. [id number], prescription of [place]. tel:+[phone] [place] contraceptive tel:[phone] tel:[phone] pills [phone] [facility] Encounter for Dec- White Referring [facility] [place] initial Aliyah. Provider: [facility] prescription of 6 [address] other [place] Citlalli R, [facility], [address], [address] [place], [place] St, St, [place], [place], [place], [address], [address]. [id number], [place]. tel:+[phone] [place] [phone] tel:[phone] [facility] BCM Other, Start Dec-0 Avidano Referring [facility] [place] Danni. Provider: [facility] 5 [address] [place], [facility], [address], [address] [place], [place] St, St, [place], [place], [place], [address]. [address]. [id number], tel:+60 tel:+[phone] [place] [phone] tel:[phone] [facility] Implant, Apr- [facility] [place] SurveillanceEC Popeye. [facility] Counseling Or RX 5 [address] [place], [address], W [place], St, [place], [address], [id number], [place]. [place] tel:+60 tel:[phone] [facility] OCP, Start Oct- [facility] Mimi. [facility] 5 [address] [place], [address] St, [address] [place], St, [place], [address]. [id number], tel:+60 [place] [phone] tel:[phone] [facility] PT, Negative Oct-2 Avid[place] [facility] 0-201 Danni. Provider: [facility] 5 [address] [place] [address] [place] [facility]. [facility], [address], [address] [place], , [place], [address]. [id number], tel:+60 [place] [phone] tel:[phone] [facility] Implant, Amador [facility] [place] SurveillanceImplan 4201 Angelica. [facility] t, Insertion 4 [address] [place] [facility], [address], [address] [place], , [place], [address]. [id number], tel:+60 [place] [phone] tel:[phone] [facility] Apr-0 [facility] 3-201 Angelica. [facility] 4 [address] [place] [facility], [address], [address] [place], , [place], [address]. [id number], tel:+60 [place] [phone] tel:[phone] Family History Family Member Diagnosis Age At [...] Record Payers Payer name Insurance type Covered republican ID Authorization(s) FPBP PRESUMPTIVE ELIGIBILITY [id number] Social History Type Description Quantity Date Captured Comments Alcohol Use Details Unknown Caffeine Use Details Unknown Tobacco Use Status Unknown Smoking Status Never smoker Non-Smoking Tobacco : No Details Available : No Details Available 2018 Use Details Sex Female Vital Signs Date / Height Weight BMI Pulse Blood Temperature Respiratory Body Head BMI Pulse Inhaled Time: Rate Pressure Rate Surface Circumference percentile [place] Area No information Chief Complaint And Reason For Visit Most recent encounter only, dated 06/13/2019 13:50'. STI Testing No Symptoms (M) (chief complaint) Reason For Referral Reason For Referral No information Plan Of Treatment Date Type Action Status No information History Of Present Illness Encounter Date Complaint History Of Present Illness No information Functional Status Date Functional Assessment No information Medications Administered Medication Instructions Dosage Effective Dates (start - stop) Status Comments No information Instructions Date Instruction Additional Information No information Assessments Type Assessment Date assessment Human immunodeficiency virus [HIV] counseling assessment Encounter for screening for human immunodeficiency virus 2018 assessment Contact w and exposure to infect w a sexl mode of transmiss assessment Enctr srvlnc implantable subdermal contraceptive Goals Health Concern Goal Type Priority Status Date No information Medical Equipment Description Device [place] Device Identifier Effective Dates (start - stop ) Status No information Mental Status Date Cognitive Assessment Normal Orientation Health Concerns Observation Date No information Concern Status Date No information
--- OUTSIDE RECORDS SUMMARY | 2019-07-13 04:04 | XMS REPORT | Continuity of Care Document ---
:1995 Author Organization [facility] Address [address] [place] [address] Phone Care Team Providers Name Role Phone [...] For Visit Copied on Encounter [facility] [place] 5- Irais. Southern 9 [address] [place], [address], [address] [place], , [place], [address], [id number], [place]. [place] tel: tel: [phone] [facility] Human May- Chris Referring [facility] [place] immunodeficiency Irais. Provider: Annie virus [HIV] 9 [address]is [address] counselingEncounte [place] Chris J, [address], [address], [address] [place] for human [place], St, [place], St, [place], [place], [address]. [place], [place] [address], tel:[phone], exposure [place] infect [place]. [id number] [place] w a sexl mode of tel: tel:+72 transmissEnctr [phone] srvlnc implantable subdermal contraceptive [facility] Body mass index White Referring [facility] [place] (BMI) 25.0-25.9, 0-201 Aliyah. Provider: Annie adultEnctr for 9 [address] Aliyah [address] init prescription [place], [address], [address], W [place] W [place] subdermal [place], St, [place], St, [place], [place], [address]. [place], [address], [id number], [place]. [place] tel:[phone] [facility] Encounter for Citlalli Referring [facility] [place] elective Jocelyn. Provider: [facility] termination of 8 [address] [place] R, [place], [address], [address] [place], [address] [place], St, [place], [place], [place], [address]. [address]. [id number], tel:+60 tel:+72 [place] [phone] tel:[phone] [facility] Encntr screen for White [facility] [place] dis of the Aliyah. [facility] bld/bld-form 8 [address] org/immun [place], [address], W [place] for [place], , [place], [place], [place], positiveEncounter [address], [id number], for oth general [place]. [place] cnsl and advice on tel:+72 contraceptionEncnt [phone] r screen for infections w sexl mode of transmissNauseaAnx iety disorder, unspecified [facility] Human Nov-1 [facility] [place] [facility] 7 Sueane. Finger counselingEncntr 620 W [facility], [address] screen for [place] W [place] infections w sexl , , [place], mode of [place], trans[place]Encounter [place], [id number], for oth general [address]. [place] cnsl and advice on tel:+60 tel:+[phone] contraceptionEncou [phone] nter for screening for human immunodeficiency virus [facility] Encounter for oth Guggino Referring [facility] [place] general cnsl and Val Provider: [facility] advice on 7 . [address] contraceptionEnctr [place] Guggino F, [facility], [address], [address] [place] subdermal [place], [address], St, [place], contrace[place]Encou [place], [place], [place], [place] [address], [address]. [id number], prescription of [place]. tel:+[phone] [place] contraceptive tel:[phone] tel:+[phone] pills [phone] [facility] Encounter for Leif-2 White Referring [facility] [place] initial 1 Aliyah. Provider: [facility] prescription of 6 [address] other [place] Citlalli R, [facility], [address], [address] [place], [address], St, [place], [place], [place], [address], [address]. [id number], [place]. tel:+[phone] [place] [phone] tel:[phone] [facility] BCM Other, Start Leif-0 Avidano Referring [facility] [place] 4 Danni. Provider: [facility] 5 [address] [place], [facility], [address], [address] [place], [address], St, [place], [place], [place], [address]. [address]. [id number], tel:+60 tel:+[phone] [place] [phone] tel:[phone] [facility] Implant, Apr-2 [facility] [place] SurveillanceEC 7 Popeye. [facility] Counseling Or RX 5 [address] [place] [facility], [address], [address] [place], St, [place], [address], [id number], [place]. [place] tel:+60 tel:[phone] [facility] OCP, Start Apr-2 [facility] [place] 2- Mimi. Southern 5 [address] [place] [facility], [address], [address] [place], St, [place], [address]. [id number], tel:+[phone] [place] [phone] tel:[phone] [facility] PT, Negative Apr-2 [place] [facility] [place] 0- Danni. Provider: [facility] 5 [address] [place] [address]inger [place] [facility]. [facility], [address], [address] [place], St, [place], [address]. [id number], tel:[phone] tel:[phone] [facility] Implant, [facility] [place] SurveillanceImplan Angelica. Southern t, Insertion 4 [address] [place], [address], W [place], St, [place], [address]. [id number], tel:+[phone] tel:[phone] [facility] Oct-0 [facility] [place] 3-201 Angelica. Southern 4 [address] [place], [address], [address] [place], St, [place], [address]. [id number], tel:+[phone] tel:[phone] Family History Family Member Diagnosis Age At [...] Record Payers Payer name Insurance type Covered libertarian ID Authorization(s) FPBP PRESUMPTIVE ELIGIBILITY [id number] Social History Type Description Quantity Date Captured [...] Date No information Medical Equipment Description Device [place] Device Identifier Effective Dates (start - stop ) Status No information Mental Status Date Cognitive Assessment No information Health Concerns Observation Date No information Concern Status Date No information
--- OUTSIDE RECORDS SUMMARY | 2019-07-13 04:04 | XMS REPORT | Continuity of Care Document ---
:1995 Author Organization [facility] Address [address] [place] [address] Phone Care Team Providers Name Role Phone Aliyah Stevens NP Unavailable Unavailable Allergies, Adverse Reactions, Alerts [...] For Visit Copied on Encounter [facility] [place] 3-201 Aliyah. Southern [address] [place], [address] [place], [place], [place], [address], [id number], [place]. [place] tel:[phone] [facility] Human May-2 Chris [facility] [place] immunodeficiency 2 Irais. Provider: Annie virus [HIV] W Irais Finger counselingEncounte [place] Chris J, [address], [address], [address] [place] for human [place], St, [place], St, [place], [place], [address]. [place] [address], tel:[phone], exposure [place] infect [place]. [id number] [place] w a sexl mode of tel:+ tel:+[phone] transmissEnctr [phone] srvlnc implantable subdermal contraceptive [facility] Body mass index [facility] (BMI) 25.0-25.9, 0-201 Aliyah. Provider: Annie adultEnctr for 9 [address] init prescription [place], [address], [address], [address] [place] subdermal [place], St, [place], St, [place], [place], [address], [address], [id number], [place]. [place] tel:+ [phone] [facility] Encounter for [place] [facility] [place] elective Jocelyn. Provider: Annie termination of 8 [address] [place] R, [facility], [address], [address] [place], [address], [address], [place], [place], [address]. [address]. [id number], tel:+ tel:[phone] tel:[phone] [facility] Encntr screen for [facility] [place] dis of the Aliyah. [facility] bld/bld-form 8 [address] org/immun [place], [address], [address] [place] for [place], , [place], test, [place], positiveEncounter [address], [id number], for oth general [place]. [place] cnsl and advice on tel:[phone] contraceptionEncnt [phone] r screen for infections w sexl mode of transmissNauseaAnx iety disorder, unspecified [facility] Nov- [facility] [place] immunodeficiency [facility] virus [HIV] 7 Sueane. Finger counselingEncntr [address] [facility], [address] [place] [address] [place] infections w sexl , , [place], mode of [place], transmissEncounter [place], [id number], for oth general [address]. [place] cnsl and advice on tel:+ tel:[phone] contraceptionEncou [phone] nter for screening for human immunodeficiency virus [facility] Encounter for oth Guggino Referring [facility] [place] general cnsl and Val Provider: [facility] advice on 7 . [address] contraceptionEnctr [place] F, Karl, [address], [address] [place] subdermal [place], [address] [place] [address], St, [place], contraceptiveEncou [place] [address], [address]. [id number], prescription of [place]. tel:[phone] [place] contraceptive tel:[phone] tel:[phone] [facility] Encounter for Leif-2 White Referring [facility] [place] initial Aliyah. Provider: [facility] prescription of 6 [address] other [place] R, [facility], [address], [address] [place], [address], [address], [place], [place], [place], [address], [address]. [id number], [place]. tel:[phone] [place] [phone] tel:[phone] [facility] BCM Other, Start Leif-0 [place] [facility] [place] 4 Danni. Provider: [facility] 5 [address] [place], [facility], [address], [address] [place], [address], St, [place], [place], [place], [address]. [address]. [id number], tel:[phone] tel:[phone] [place] [phone] tel:[phone] [facility] Implant, Apr-2 [facility] [place] SurveillanceEC 7 Popeye. [facility] Counseling Or RX [address] [facility], [address], [address] [place], St, [place], [address], [id number], [place]. [place] tel:+[phone] tel:[phone] [facility] OCP, Start Apr-2 [facility] [place] 2- Mimi. Southern [address] [place] [facility], [address], [address] [place], St, [place], [address]. [id number], tel:[phone] [place] [phone] tel:[phone] [facility] PT, Negative Apr-2 [place] [facility] 0- Danni. Provider: [facility] 5 [address]URSE [place] [address] [place] P[address]. [facility], [address], [address] [place], St, [place], [address]. [id number], tel:[phone] [place] [phone] tel:[phone] [facility] Implant, [facility] [place] SurveillanceImplan Angelica. Southern t, Insertion 4 [address] [place], [address], W [facility], , [place], [address]. [id number], tel:+ [phone] tel:[phone] [facility] Apr-0 [facility] [place] 3-201 Angelica. Southern 4 [address] [place], [address] [place], , [place], [address]. [id number], tel:+ [phone] tel:[phone] Family History Family Member Diagnosis Age At [...] Record Payers Payer name Insurance type Covered democrat ID Authorization(s) FPBP PRESUMPTIVE ELIGIBILITY [id number] Social History Type Description Quantity Date Captured [...] Date No information Medical Equipment Description Device [place] Device Identifier Effective Dates (start - stop ) Status No information Mental Status Date Cognitive Assessment No information Health Concerns Observation Date No information Concern Status Date No information
--- NOTE | 2019-07-13 04:11 | ED ---
Neurological HPI - HPI Summary HPI Summary: Patient is a 24 y/o F w/ Hx of seizures who presents to [facility] via EMS for seizure episode. SO had witnessed the seizure episode. He state that they were in the living room talking at around 0230 07/13/19. Patient was sitting on the floor at the time. She told her SO that she didn't "feel right" and that she had a "funny feeling" in her head. Approximately 15 minutes later, SO reports that the patient had a tonic clonic seizure for approximately a minute. Patient is reported to have been confused after this episode. SO states that the patient might have had a second, shorter episode subsequently. EMS was called, who note that the patient was not post-ictal upon their arrival. Patient is reported to not be taking any seizure medications. In the room, patient is experiencing difficulty breathing, hyperventilating, and crying. She believes that she is having a panic attack currently. Home medications and allergies are reviewed. - History of Current Complaint Chief Complaint: EDSeizure Stated Complaint: SEIZURES PER EMS Time Seen by Provider: 07/13/19 03:54 Hx Obtained From: Patient, Family/Buffer Nickel Hx Last Menstrual Period: implant Onset/Duration: Resolved - seizure Timing: Intermittent Episodes Lasting: Neurological Deficit Location: Generalized Pain Scale Used: 0-10 Numeric Character: Other: - seizure, subsequent confusion Episode Lasting: Seconds/Minutes Syncope Context: Witnessed Seizure Character: Generalized Associated Signs and Symptoms: Positive: Confusion, Seizure, Shortness of Breath - difficulty breathing, hyperventilating, Anxiety - Additional Pertinent History Primary Care Physician: MARIBEL - Allergy/Home Medications Allergies/Adverse Reactions: Allergies Allergy/AdvReac Type Severity Reaction Status Date / Time ketorolac Allergy Severe Unknown Verified 07/13/19 04:32 Reaction Details shellfish derived Allergy Severe Anaphylatic Verified 07/13/19 04:32 Shock tramadol Allergy Severe See Comment Verified 07/13/19 04:32 hydroxyzine Allergy Unknown Swelling Verified 07/13/19 04:32 Of Face,Lips,& Throat opioids Allergy Unknown See Comment Uncoded 07/13/19 04:32 Home Medications: Home Medications NK [No Home Medications Reported] 07/13/19 [History Confirmed 07/13/19] PMH/Surg Hx/FS Hx/Imm Hx Endocrine/Hematology History: Denies: Hx Anticoagulant Therapy, Hx Blood Disorders, Hx Diabetes, Hx Thyroid Disease, Hx Anemia, Hx Unexplained Bleeding Cardiovascular History: Denies: Hx Cardiac Arrest, Hx Embolism, Hx Hypertension, Hx Pacemaker/ICD Respiratory History: Reports: Hx Asthma Denies: Hx Chronic Obstructive Pulmonary Disease (COPD), Hx Pneumonia GI History: Denies: Hx Cirrhosis, Hx Crohn's Disease, Hx Diverticulosis, Hx Gall Bladder Disease, Hx Gastroesophageal Reflux Disease, Hx Gastrointestinal Bleed, Hx Hiatal Hernia, Hx Irritable Bowel, Hx Obstructive Bowel, Hx Ulcer History: Denies: Hx Renal Disease Sensory History: Denies: Hx Contacts or Glasses, Hx Hearing Aid, Hx Hearing Problem Opthamlomology History: Denies: Hx Contacts or Glasses Neurological History: Reports: Hx Seizures - Pt has had history of sezures when Hypoglycemic Psychiatric History: Reports: Hx Anxiety, Hx Depression, Hx Panic Disorder, Hx Inpatient Treatment, Hx Schizophrenia, Other Psychiatric Issues/Disorders - PANIC DISORDER Denies: Hx Eating Disorder, Hx of Violent Episodes Against Others - Immunization History Date of Tetanus Vaccine: utd Date of Influenza Vaccine: 2016 Infectious Disease History: Denies: Hx Clostridium Difficile, Hx Hepatitis, Hx Human Immunodeficiency Virus (HIV), Hx of Known/Suspected MRSA, Hx Shingles, Hx Tuberculosis, Hx Known/ Suspected VRE, Hx Known/Suspected VRSA, History Other Infectious Disease - Family History Known Family History: Positive: Cardiac Disease - Mother had an NV, Other - father -schizophrenia Negative: Diabetes Family History: Biological father - Schizophrenia - Social History Alcohol Use: Weekly Hx Substance Use: Yes Substance Use Type: Reports: Marijuana Substance Use Comment - Amount & Last Used: monthly Hx Tobacco Use: No Smoking Status (MU): Never Smoked Tobacco Type: Cigarettes Length of Time of Smoking/Using Tobacco: 1 year Have You Smoked in the Last Year: No Review of Systems Positive: Shortness Of Breath - positive - difficulty breathing, hyperventilating Neurological: Other - positive - seizure, confusion afterwards Psychological: Other - positive - tearful All Other Systems Reviewed And Are Negative: Yes Physical Exam - Summary Physical Exam Summary: Appearance: Well-appearing, Well-nourished, lying in bed comfortably Skin: There are multiple linear scars under her left forearm consistent with cutting behavior. Warm, dry, no obvious rash Eyes: sclera anicteric, no conjunctival pallor ENT: mucous membranes moist, pharynx appears normal Neck: Supple, nontender Respiratory: Clear to auscultation, no signs of respiratory distress Cardiovascular: Normal S1, S2. No murmurs. Normal distal pulses in tibial and radial bilaterally. Abdomen: Soft, nontender, normal active bowel sounds present Musculoskeletal: Normal, Strength/ROM Intact Neurological: A&Ox3, awake and alert, mentation is normal, speech is fluent and appropriate Psychiatric: patient is noted to be tearful and anxious-appearing Triage Information Reviewed: Yes Vital Signs Reviewed: Yes Procedures - Sedation Patient Received Moderate/Deep Sedation with Procedure: No Diagnostics - Laboratory Result Diagrams: 07/13/19 04:08 07/13/19 04:08 Lab Statement: Any lab studies that have been ordered have been reviewed, and results considered in the medical decision making process. Re-Evaluation - Re-Evaluation First Eval Re-Evaluation Time: 04:26 Comment: Patient had witnessed seizure-like activity lasting 30 second. Patient initially acted confused but became awake and alert, no drowsiness noted. She continues to be anxious and hyperventilating. Second Eval Re-Evaluation Time: 04:55 Comment: Patient had another episode of seizure-like activty with similar characteristics as previous episode. Additional ativan administered. Third Eval Re-Evaluation Time: 05:58 Change: Improved Comment: The pt is feeling much better. I think the activity we saw here was unlikely to be epileptic seizure activity, but the description of the first episode by her SO does sound like a generalized TC seizure. She took herself off depakote about a year ago due to cost/no insurance as well as side effects, and is reluctant to go back on anti epileptic medications. She does not drive so that is not an issue. She understands that she could have further seizures and we would need to revisit the idea of medications. Course/Dx - Course Course Of Treatment: Patient is a 24 y/o F w/ Hx of seizures who presents to [facility] via EMS for seizure episode. SO had witnessed the seizure episode. He state that they were in the living room talking at around 0230 07/13/19. Patient was sitting on the floor at the time. She told her SO that she didn't "feel right" and that she had a "funny feeling" in her head. Approximately 15 minutes later, SO reports that the patient had a tonic clonic seizure for approximately a minute. Patient is reported to have been confused after this episode. SO states that the patient might have had a second, shorter episode subsequently. EMS was called, who note that the patient was not post-ictal upon their arrival. Patient is reported to not be taking any seizure medications. In the room, patient is experiencing difficulty breathing, hyperventilating, and crying. She believes that she is having a panic attack currently. On physical exam, patient is noted to be tearful and anxious-appearing. She is awake, alert , oriented x3 and answering questions. There are multiple linear scars under her left forearm consistent with cutting behavior. Patient had two witnessed seizure-like activity lasting 30 second. Patient initially acted confused but became awake and alert, no drowsiness noted. She continues to be anxious and hyperventilating. During ED course, patient receive Ativan 1 mg PO x2. Tox screen showed valproic acid < 13, alcohol 116. CBC and CMP were within normal limits. 0558 - The pt is feeling much better. I think the activity we saw here was unlikely to be epileptic seizure activity, but the description of the first episode by her SO does sound like a generalized TC seizure. She took herself off depakote about a year ago due to cost/no insurance as well as side effects, and is reluctant to go back on anti epileptic medications. She does not drive so that is not an issue. She understands that she could have further seizures and we would need to revisit the idea of medications. Patient discharged to home with neurologist follow up. - Diagnoses Provider Diagnoses: Seizure Discharge ED - Sign-Out/Discharge Documenting (check all that apply): Patient Departure - discharge - Discharge Plan Condition: Improved Disposition: HOME Patient Education Materials: Epilepsy (ED) [facility]errals: [facility] [Outside] Eder Kearney MD [Medical Doctor] - Additional Instructions: As we discussed, you could have further seizures which should prompt a return here. I appreciate your dislike of the costs and side effects associated with seizure medications, and if you want to hold off for now that's ok. You cannot drive until cleared by a physician to do so. - Billing Disposition and Condition Condition: IMPROVED Disposition: Home - Attestation Statements Document Initiated by Scribe: Yes Documenting Scribe: KESHIA NORRIS Provider For Whom Karenibe is Documenting (Include Credential): WES LOPEZ MD Scribe Attestation: I, KESHIA NORRIS, scribed for WES LOPEZ MD on 07/13/19 at 0633. Scribe Documentation Reviewed: Yes Provider Attestation: The documentation as recorded by the scribeKESHIA accurately reflects the service I personally performed and the decisions made by me, WES LOPEZ MD Status of Scribe Document: Viewed
[2019-07-13 04:14] LABS: ABS Basophils 0.1 10^3/ul (0-0.2); ABS Eosinophils 0.3 10^3/ul (0-0.6); ABS Monocytes 0.6 10^3/ul (0-0.8); ABS Neutrophils 4.2 10^3/ul (1.5-7.7); Eosinophil % 4.8 %; Hematocrit 40 % (35-47); Hemoglobin 13.7 g/dL (12.0-16.0); Lymphocyte % 27.8 %; Mean Corpuscular HGB Conc 35 g/dL (31-36); Mean Corpuscular Hemoglobin 31 pg (27-31); Mean Corpuscular Volume 90 fL (80-97); Mean Platelet Volume 7.6 fL (7.4-10.4); Nucleated Red Blood Cells % 0.1; Platelet Count 382 10^3/uL (150-450); Red Blood Count 4.46 10^6 /uL (3.70-4.87); Red Cell Distribution Width 14 % (10-15); White Blood Count 7.1 10^3/uL (3.5-10.8)
[2019-07-13 04:30] LABS: ALT 11 U/L (7-52); AST 15 U/L (13-39); Albumin 4.6 g/dL (3.2-5.2); Albumin/Globulin Ratio 1.6 (1-3); Alkaline Phosphatase 47 U/L (34-104); Anion Gap 10 mmol/L (2-11); Blood Urea Nitrogen 14 mg/dL (6-24); CO2 Carbon Dioxide 24 mmol/L (22-32); Calcium 9.3 mg/dL (8.6-10.3); Chloride 104 mmol/L (101-111); EGFR African American 124.4 (>60); EGFR Non-African American 102.8 (>60); Globulin 2.9 g/dL (2-4); Glucose 94 mg/dL (70-100); Potassium 3.5 mmol/L (3.5-5.0); Sodium 138 mmol/L (135-145); Total Protein 7.5 g/dL (6.4-8.9)
[2019-07-13 04:38] LABS: Alcohol 116 mg/dL (<10)
[2019-07-13 06:12] VITALS: BP 104/52
== END 2019-07-13 06:11 | disposition home or self-care (01) ==
LOC: ED 03:50
DX: R56.9 Unspecified convulsions (principal); J45.909 Unspecified asthma, uncomplicated; F41.9 Anxiety disorder, unspecified; F32.9 Major depressive disorder, single episode, unspecified; Z87.891 Personal history of nicotine dependence; Z88.6 Allergy status to analgesic agent; Z88.5 Allergy status to narcotic agent; Z88.8 Allergy status to other drugs, medicaments and biological substances
CPT/HCPCS: 36415; 80053; 80164; 80320; 85025; 99283; A9270-GY; G0480

== ENCOUNTER 2019-07-20 14:15 | Emergency (ER) | payer MEDICAID ==
[2019-07-20 14:45] VITALS: BP 107/76
--- NOTE | 2019-07-20 15:32 | UC ---
Neck Pain HPI - HPI Summary HPI Summary: patient reports having a seizure (witness by her ) the 5 days ago---she fell back and hit the left side of her neck on the tv stand---she comes to urgent care today with c/o neck pain and muscle stiffness--no neurological deficits--patient reports she has beeen taking her Depakote as prescribed - History of Current Complaint Chief Complaint: UCSeizure Stated Complaint: NECK PAIN AND STIFFNESS AFTER A SEIZURE Time Seen by Provider: 07/20/19 14:51 Hx Obtained From: Patient Hx Last Menstrual Period: 07/15/19 ?: No Onset/Duration Of Injury/Symptoms: Days - 5 Mechanism Of Injury: Blunt Trauma Timing: Constant Onset/Duration: Sudden Onset, Lasting Days - 5, Still Present Pain Intensity: 7 Pain Scale Used: 0-10 Numeric Location: Discrete At: Character: Aching, Spasmotic Aggravating Factors: Movement Alleviating Factors: Nothing Associated Signs & Symptoms: Positive: Negative - Allergies/Home Medications Allergies/Adverse Reactions: Allergies Allergy/AdvReac Type Severity Reaction Status Date / Time ketorolac Allergy Severe Unknown Verified 07/20/19 14:45 Reaction Details shellfish derived Allergy Severe Anaphylatic Verified 07/20/19 14:45 Shock tramadol Allergy Severe See Comment Verified 07/20/19 14:45 hydroxyzine Allergy Unknown Swelling Verified 07/20/19 14:45 Of Face,Lips,& Throat cyclobenzaprine Allergy Hallucinati Verified 07/20/19 16:12 ons opioids Allergy Unknown See Comment Uncoded 07/20/19 14:45 Home Medications: Home Medications Albuterol HFA INHALER* [Ventolin HFA Inhaler*] 2 puff INH Q4H PRN 07/20/19 [ History Confirmed 07/20/19] Etonogestrel [Nexplanon] 68 mg PERCUTAN ONCE 07/20/19 [History Confirmed ] Valproic Acid IV(*) [Depacon IV(*)] 100 mg IV SEE INSTRUCTIONS 07/20/19 [ History Confirmed 07/20/19] PMH/Surg Hx/FS Hx/Imm Hx Previously Healthy: No Neurological History: Seizures Psychological History: Depression Other History Of: Negative For: Anticoagulant Therapy - Surgical History Surgical History: None - Family History Known Family History: Positive: Cardiac Disease - Mother had an MO, Other - father -schizophrenia Negative: Diabetes Family History: Biological father - Schizophrenia - Social History Occupation: Employed Full-time Lives: With Family Alcohol Use: Weekly Substance Use Type: None Substance Use Comment - Amount & Last Used: monthly Smoking Status (MU): Never Smoked Tobacco Type: Cigarettes Length of Time of Smoking/Using Tobacco: 1 year Have You Smoked in the Last Year: No Household Exposure Type: Cigarettes - Immunization History Most Recent Influenza Vaccination: fall 2016 Most Recent Tetanus Shot: UTD Most Recent Pneumonia Vaccination: n/a Review of Systems All Other Systems Reviewed And Are Negative: Yes Constitutional: Positive: Negative Skin: Positive: Negative Eyes: Positive: Negative ENT: Positive: Negative Respiratory: Positive: Negative Cardiovascular: Positive: Negative Gastrointestinal: Positive: Negative Genitourinary: Positive: Negative Motor: Positive: Negative Neurovascular: Positive: Negative Musculoskeletal: Positive: Myalgia - left side of neck Neurological: Positive: Negative Psychological: Positive: Negative Is Patient Immunocompromised?: No Physical Exam Triage Information Reviewed: Yes Appearance: Well-Appearing, No Pain Distress, Well-Nourished Vital Signs: Initial Vital Signs Temp 99.6 F 07/20/19 14:39 Pulse 88 07/20/19 14:39 Resp 18 07/20/19 14:39 BP 107/76 07/20/19 14:39 Pulse Ox 100 07/20/19 14:39 Vital Signs Reviewed: Yes Eye Exam: Normal Eyes: Positive: Conjunctiva Clear ENT Exam: Normal ENT: Positive: Normal ENT inspection, Hearing grossly normal, Pharynx normal, TMs normal. Negative: Nasal congestion, Trismus, Muffled voice, Hoarse voice Dental Exam: Normal Neck exam: Normal Neck: Positive: Supple, Nontender, No Lymphadenopathy Respiratory Exam: Normal Respiratory: Positive: Chest non-tender, Lungs clear, Normal breath sounds, No respiratory distress, No accessory muscle use Cardiovascular Exam: Normal Cardiovascular: Positive: RRR, No Murmur, Pulses Normal, Brisk Capillary Refill Musculoskeletal Exam: Other Musculoskeletal: Positive: No Edema, ROM Limited @ - neck Neurological Exam: Normal Neurological: Positive: Alert, Muscle Tone Normal Psychological Exam: Normal Skin Exam: Normal Diagnostics - Radiology No standard instances Radiology Interpretation Completed By: Radiologist - straightening of cervical spine Re-Evaluation - Re-Evaluation First Eval Re-Evaluation Time: 16:15 Comment: patient returned to urgent care with flexeril she states she has taken it before and it makes her feel awful---will add to allergy list and rx 12 soma- -patient gave us flexeril to destroy Neck Pain Course/Dx - Course Course Of Treatment: naproxen, soma, resst---refused soft cervical collar---referral to pcp - Differential Dx/Diagnosis Provider Diagnosis: Cervical muscle strain Discharge ED - Sign-Out/Discharge Documenting (check all that apply): Patient Departure All imaging exams completed and their final reports reviewed: Yes - Discharge Plan Condition: Stable Disposition: HOME Prescriptions: Carisoprodol TAB* [Soma TAB*] 350 mg PO TID PRN #12 tab MDD 3 PRN Reason: muscle spasm Cyclobenzaprine (NF) [Cyclobenzaprine 5 MG (NF)] 1 - 2 tab PO TID PRN #20 tab PRN Reason: muscle spasm Naproxen [Naproxen 500 mg tab] 500 mg PO BID PRN #30 tablet PRN Reason: pain Patient Education Materials: Contusion in Adults (ED), Muscle Spasm (ED) Referrals: [facility] [Outside] - 1 Week - Billing Disposition and Condition Condition: STABLE Disposition: Home - Attestation Statements Provider Attestation: Per institutional requirements, I have reviewed the chart, however, I was not consulted specifically or made aware of this patient by the midlevel provider. I did not personally evaluate, interact with , or disposition this patient.
== END 2019-07-20 15:44 | disposition home or self-care (01) ==
LOC: UCEAST 14:15
DX: S16.1XXA Strain of muscle, fascia and tendon at neck level, initial encounter (principal); R56.9 Unspecified convulsions; Z88.5 Allergy status to narcotic agent; Z88.8 Allergy status to other drugs, medicaments and biological substances; Z91.013 Allergy to seafood; W01.198A Fall on same level from slipping, tripping and stumbling with subsequent striking against other object, initial encounter; Y92.9 Unspecified place or not applicable
CPT/HCPCS: 72050; 99212; G0463

== ENCOUNTER 2019-09-29 11:17 | Emergency (ER) | payer SELFPAY ==
[2019-09-29 12:27] LABS: Urine Benzodiazepine Screen None Detected (None Detect); Urine Opiates Screen None Detected (None Detect)
[2019-09-29 12:36] VITALS: BP 122/80
--- NOTE | 2019-09-30 07:04 | ED ---
Substance Abuse/Use - HPI Summary HPI Summary: Pt isaa 24yo F presenting to the ED with request for drug screening. States she was having a few beers last night with her boss when she began to feel "weird." She states she was very tired when she got home and had to be helped to the bath by her boyfriend, etc. She has drank alcohol before and did not have this reaction in the past. Denies other concerns. Pt feels fine at this time. - History Of Current Complaint Chief Complaint: EDGeneral Stated Complaint: WANTS DRUG SCREENING PER PT Time Seen by Provider: 09/29/19 11:38 Hx Obtained From: Patient Hx Last Menstrual Period: currently ?: No Ingestion History: Type/Name Of Drug - unknown Severity Initially: Moderate Severity Currently: None Aggravating Factor(s): Nothing Alleviating Factor(s): Nothing Associated Signs And Symptoms: Negative - Allergies/Home Medications Allergies/Adverse Reactions: Allergies Allergy/AdvReac Type Severity Reaction Status Date / Time ketorolac Allergy Severe Unknown Verified 09/29/19 11:24 Reaction Details shellfish derived Allergy Severe Anaphylatic Verified 09/29/19 11:24 Shock tramadol Allergy Severe See Comment Verified 09/29/19 11:24 hydroxyzine Allergy Unknown Swelling Verified 09/29/19 11:24 Of Face,Lips,& Throat cyclobenzaprine Allergy Hallucinati Verified 09/29/19 11:24 ons opioids Allergy Unknown See Comment Uncoded 09/29/19 11:24 Home Medications: Home Medications Albuterol HFA INHALER* [Ventolin HFA Inhaler*] 2 puff INH Q4H PRN 07/20/19 [ History Confirmed 09/29/19] Etonogestrel [Nexplanon] 68 mg PERCUTAN ONCE 07/20/19 [History Confirmed ] Valproic Acid IV(*) [Depacon IV(*)] 100 mg IV SEE INSTRUCTIONS 07/20/19 [ History Confirmed 09/29/19] PMH/Surg Hx/FS Hx/Imm Hx Previously Healthy: Yes Endocrine/Hematology History: Denies: Hx Anticoagulant Therapy, Hx Blood Disorders, Hx Diabetes, Hx Thyroid Disease, Hx Anemia, Hx Unexplained Bleeding Cardiovascular History: Denies: Hx Cardiac Arrest, Hx Embolism, Hx Hypertension, Hx Pacemaker/ICD Respiratory History: Reports: Hx Asthma Denies: Hx Chronic Obstructive Pulmonary Disease (COPD), Hx Pneumonia GI History: Denies: Hx Cirrhosis, Hx Crohn's Disease, Hx Diverticulosis, Hx Gall Bladder Disease, Hx Gastroesophageal Reflux Disease, Hx Gastrointestinal Bleed, Hx Hiatal Hernia, Hx Irritable Bowel, Hx Obstructive Bowel, Hx Ulcer History: Denies: Hx Renal Disease Sensory History: Denies: Hx Contacts or Glasses, Hx Hearing Aid, Hx Hearing Problem Opthamlomology History: Denies: Hx Contacts or Glasses Neurological History: Reports: Hx Seizures - Pt has had history of sezures when Hypoglycemic Psychiatric History: Reports: Hx Anxiety, Hx Depression, Hx Panic Disorder, Hx Inpatient Treatment, Hx Schizophrenia, Other Psychiatric Issues/Disorders - PANIC DISORDER Denies: Hx Eating Disorder, Hx of Violent Episodes Against Others - Immunization History Date of Tetanus Vaccine: utd Date of Influenza Vaccine: 2016 Hx Pertussis Vaccination: No Immunizations Up to Date: Yes Infectious Disease History: No Infectious Disease History: Denies: Hx Clostridium Difficile, Hx Hepatitis, Hx Human Immunodeficiency Virus (HIV), Hx of Known/Suspected MRSA, Hx Shingles, Hx Tuberculosis, Hx Known/ Suspected VRE, Hx Known/Suspected VRSA, History Other Infectious Disease, Traveled Outside the [place] in Last 30 Days - Family History Known Family History: Positive: Cardiac Disease - Mother had an [place], Other - father -schizophrenia Negative: Diabetes Family History: Biological father - Schizophrenia - Social History Occupation: Employed Full-time Lives: With Family Alcohol Use: Weekly Hx Substance Use: Yes Substance Use Type: Reports: Marijuana Substance Use Comment - Amount & Last Used: last night Hx Tobacco Use: No Smoking Status (MU): Never Smoked Tobacco Type: Cigarettes Length of Time of Smoking/Using Tobacco: 1 year Have You Smoked in the Last Year: No Review of Systems Negative: Fever, Chills, Fatigue, Skin Diaphoresis Negative: Palpitations, Chest Pain Negative: Abdominal Pain, Vomiting, Diarrhea, Nausea Genitourinary: Negative Positive: no symptoms reported, see HPI Negative: Headache, Weakness, Paresthesia All Other Systems Reviewed And Are Negative: Yes Physical Exam Triage Information Reviewed: Yes Vital Signs On Initial Exam: Initial Vitals Temp Pulse Resp BP Pulse Ox 98.4 F 88 16 126/84 98 09/29/19 11:21 09/29/19 11:21 09/29/19 11:21 09/29/19 11:21 09/29/19 11:21 Vital Signs Reviewed: Yes Appearance: Positive: Well-Appearing, Well-Nourished Skin: Positive: Warm, Skin Color Reflects Adequate Perfusion Head/Face: Positive: Normal Head/Face Inspection Eyes: Positive: EOMI, PADMINI, Conjunctiva Clear Neck: Positive: Supple, No Lymphadenopathy Respiratory/Lung Sounds: Positive: Clear to Auscultation, Breath Sounds Present Cardiovascular: Positive: RRR, Pulses are Symmetrical in both Upper and Lower Extremities Musculoskeletal: Positive: Normal, Strength/ROM Intact Neurological: Positive: Speech Normal Psychiatric: Positive: Affect/Mood Appropriate AVPU Assessment: Alert Procedures - Sedation Patient Received Moderate/Deep Sedation with Procedure: No Diagnostics - Vital Signs Vital Signs Temp Pulse Resp BP Pulse Ox 09/29/19 12:35 99.8 F 86 18 122/80 100 09/29/19 11:21 98.4 F 88 16 126/84 98 - Laboratory Lab Results: Lab Results 09/29/19 Range/Units 11:37 Urine Opiates Screen None detected (None Detect) Ur Barbiturates Screen None detected (None Detect) Ur Phencyclidine Scrn None detected (None Detect) Ur Amphetamines Screen None detected (None Detect) U Benzodiazepines Scrn None detected (None Detect) Urine Cocaine Screen None detected (None Detect) U Cannabinoids Screen Presumptive positive A (None Detect) Lab Statement: Any lab studies that have been ordered have been reviewed, and results considered in the medical decision making process. Course/Dx - Course Course Of Treatment: Patient requests a drug test. Drug screen negative except for cannabinoids. Patient is given information. She denies any symptoms at this time and states she is okay for discharge. - Diagnoses Provider Diagnoses: Encounter for drug screening Discharge ED - Sign-Out/Discharge Documenting (check all that apply): Patient Departure - Discharge Plan Condition: Stable Disposition: HOME Referrals: No Primary Care Phys,NOPCP [Primary Care Provider] - - Billing Disposition and Condition Condition: STABLE Disposition: Home
== END 2019-09-29 12:35 | disposition home or self-care (01) ==
LOC: ED 11:17
DX: Z02.83 Encounter for blood-alcohol and blood-drug test (principal); Z88.8 Allergy status to other drugs, medicaments and biological substances; Z88.5 Allergy status to narcotic agent; Z91.013 Allergy to seafood
CPT/HCPCS: 80307; 99282; G0480